=== PATIENT | female | born 1940 | race Caucasian/White ===

== ENCOUNTER 2018-03-07 11:15 | Outpatient (RCR) | payer MEDICARE, SELFPAY ==
[2018-02-21 08:44] VITALS: BP 120/76; PULSE 120; RESP 18; TEMP 35.9; BMI 45.7
--- NOTE | 2018-02-21 18:27 | PCM.WC.HP ---
(1) Ulcer of lower extremity with fat layer exposed Status: Acute Current Visit: Yes Qualifiers: Laterality: unspecified laterality Qualified Code(s): L97.902 - Non-pressure chronic ulcer of unspecified part of unspecified lower leg with fat layer exposed Code(s): L97.902 - Non-pressure chronic ulcer of unspecified part of unspecified lower leg with fat layer exposed Comment: Bilateral (2) Type 2 diabetes mellitus Status: Acute Current Visit: Yes Code(s): E11.9 - Type 2 diabetes mellitus without complications (3) Venous insufficiency Status: Acute Current Visit: Yes Code(s): I87.2 - Venous insufficiency (chronic) (peripheral) (4) Venous ulcer of left leg Status: Chronic Current Visit: No Code(s): I83.029 - Varicose veins of left lower extremity with ulcer of unspecified site History of Present Illness Date of Service: 02/21/18 Chief Complaint: Bilateral lower extremity ulcers. History of Wound: Ms. Nagy is a 77yo with PMH of Hypertension, Hyperlipidemia, type 2 Diabetes Mellitus and Chronic Venous insuficiency who presented here due to new bilateral lower extremity ulcers. She is not sure about the exact onset but states that she first noted them a couple of months. She denies any known precipitatting factors. She was last seen here in 2015/2016 and states that she has been stable since then. She does not use any mode of compression and admits to sitting a lot with the extremities hanging down. She otherwise feels well and denies chills, fever, nausea, vomiiting or any chnage in her bowel habit. 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 (Chronic) Allergies/Adverse Reactions: Allergies diltiazem HCl [From Cardizem] Adverse Reaction (Verified 01/20/16 11:37) Rash Home Medications: Ambulatory Orders Medication Instructions Recorded Furosemide [Lasix] 80 mg PO BID 01/20/16 Gabapentin [Gralise] 300 mg PO BID 01/20/16 Glimepiride [Amaryl] 2 mg PO BID 01/20/16 Metformin HCl [Glucophage] 500 mg PO BIDCM 01/20/16 Metoprolol Tartrate [Lopressor 50 mg PO DAILY 01/20/16 (Beta Olman)] Potassium 10 mg PO TID 01/20/16 Simvastatin [Zocor] 40 mg PO QHS 01/20/16 Warfarin [Coumadin ([facility])] 6 mg PO MOWEFR 01/20/16 Warfarin [Coumadin ([facility])] 3 mg PO SUTHSA 02/21/18 Smoking Status: Former smoker Review of Systems Constitutional: Denies: Anorexia, Chills, Fever, Malaise Eyes: Denies: Drainage, Vision Change HEENT: Denies: Difficulty Swallowing, Ear Pain Cardiovascular: Denies: Chest Pain, Chest Pressure, Chest Tightness Respiratory: Denies: Cough, Hemoptysis Gastrointestinal: Denies: Abdominal Pain Skin: Denies: Jaundice - Physical Exam Vital Signs Temp Pulse Resp BP 96.6 F L 120 H 18 120/76 02/21/18 08:44 02/21/18 08:44 02/21/18 08:44 02/21/18 08:44 General: Alert, Oriented x3, Cooperative, No apparent distress HEENT: Atraumatic, Normocephalic Oral: Dry Mucosa Neck: Supple Lungs: Normal air movement Cardiovascular: Regular rate Abdomen: Non Tender, Obese Extremities: No cyanosis, Edema Skin: Ulcer/ Wound Wound Measurements and Assessment WC - Nurse 1 - General Ulcer Measurement Start: 02/21/18 08:44 Freq: Status: Active Protocol: Activity Type Activity Date Activity User E-Sign Co-Sign Detail Recorded Client Recorded Date Recorded By Document 02/21/18 08:44 DV [id number] 02/21/18 09:26 DV 02/21/18 08:44 Wound Center Nurse 1 [Ulcer Assessment] #3 RLE- FARFAN -Combined with other wound No -Current Size (cm) - Length 10.0 -Current Size (cm) - Width 7.0 -Current Size (cm) - Depth 0.2 -Total Square Cm 70.00 -Photo Taken Yes -Epithelialization None Present -Tunneling No -Undermining/Tunneling No -Circular Undermining No -Classification - Thickness Full Thickness without Exposed Support Structure -Exudate Amt Medium (34-66%) -Exudate Type Serosanguineous -Wound Margin Indistinct, Non -Visible -Granulation Amt None Present (0 %) -Granulation Quality N/A -Slough/Fibrin Yes -Necrosis Amt Large (67-100%) -Necrotic Tissue Type Adherent Slough -Structure Exposed Fat Layer Exposed None/Limited to Skin Breakdown -Texture (Norma-wound Skin Appearance) Assessed Localized Edema Scarring -Moisture (Norma-wound Skin Appearance Assessed ) Weeping Dry/Scaly -Color (Norma-wound Skin Appearance) Assessed Hemosiderin Staining -Temperature (Norma-wound Skin No Abnormality Appearance) (Pt Warm) -Tenderness on Palpation (Norma-wound Yes Skin Appearance) -Ulcer Cleansing Wound Cleanser -Foul Odor after Cleansing Yes -Anesthetic Used 4% Lidocaine Solution #2 LLE ULCER- CIRCUMFRENTIAL -Combined with other wound No -Current Size (cm) - Length 31.5 -Current Size (cm) - Width 11.0 -Current Size (cm) - Depth 0.2 -Total Square Cm 346.50 -Photo Taken Yes -Epithelialization None Present -Tunneling No -Undermining/Tunneling No -Classification - Thickness Full Thickness without Exposed Support Structure -Exudate Amt Large (67-100%) -Exudate Type Yellow/Green -Wound Margin Thickened -Granulation Amt None Present (0 %) -Granulation Quality N/A -Slough/Fibrin Yes -Necrosis Amt Large (67-100%) -Necrotic Tissue Type Adherent Slough -Structure Exposed Fat Layer Exposed None/Limited to Skin Breakdown -Texture (Norma-wound Skin Appearance) Assessed Callus Localized Edema Scarring -Moisture (Norma-wound Skin Appearance Assessed ) Weeping Dry/Scaly -Color (Norma-wound Skin Appearance) Assessed Hemosiderin Staining -Temperature (Norma-wound Skin No Abnormality Appearance) (Pt Warm) -Tenderness on Palpation (Norma-wound Yes Skin Appearance) -Ulcer Cleansing Wound Cleanser -Foul Odor after Cleansing Yes -Anesthetic Used 4% Lidocaine Solution [Edema Assessment] -Lower Limb Edema Present Yes -Right Calf (cm) 52.5 -Right Ankle (cm) 30.0 -Left Calf (cm) 54.0 -Left Ankle (cm) 31.0 WC - Nurse 2 - General Ulcer CM Notes Start: 02/21/18 08:44 Freq: Status: Active Protocol: Activity Type Activity Date Activity User E-Sign Co-Sign Detail Recorded Client Recorded Date Recorded By Document 02/21/18 10:32 DV [id number] 02/21/18 10:48 DV 02/21/18 10:32 Wound Center Nurse 2 [Procedure/Treatment] #3 RLE- FARFAN -Time 10:34 -Correct Patient Yes -Correct Side, Site, Position Yes -Correct Procedure Yes -Procedure Performed Yes -Type of Procedure Debridement -Clinical Debridement Subcutaneous -Post Debridement Size (cm) - Length 10.0 -Post Debridement Size (cm) - Width 7.3 -Post Debridement Size (cm) - Depth 0.1 -Total Square Cm 73.00 -Wound/Ulcer Outcome Not Healed -Ulcer Cleansing Rinsed/ Irrigated with Saline -Foul Odor after Cleansing No -Bioengineered Tissue No -Bleeding Controlled with Pressure -Treatment Response Procedure Tolerated Well #2 LLE ULCER- CIRCUMFRENTIAL -Time 10:34 -Correct Patient Yes -Correct Side, Site, Position Yes -Correct Procedure Yes -Procedure Performed Yes -Type of Procedure Debridement -Clinical Debridement Subcutaneous -Post Debridement Size (cm) - Length 31.0 -Post Debridement Size (cm) - Width 11.5 -Post Debridement Size (cm) - Depth 0.2 -Total Square Cm 356.50 -Wound/Ulcer Outcome Not Healed -Ulcer Cleansing Rinsed/ Irrigated with Saline -Foul Odor after Cleansing No -Bioengineered Tissue No -Bleeding Controlled with Pressure -Treatment Response Procedure Tolerated Well [See Physician Procedure note for Specifics] Pain Scale: 0-10 Numeric [Pain] -Is Patient Pain Free? Yes Musculoskeletal: No Muscle Wasting Neurological: Cranial nerves II-XII grossly intact Psych/Mental Status: Normal Affect Debridement Note Post-Debridement Measurements/Treatment WC - Nurse 2 - General Ulcer CM Notes Start: 02/21/18 08:44 Freq: Status: Active Protocol: Activity Type Activity Date Activity User E-Sign Co-Sign Detail Recorded Client Recorded Date Recorded By Document 02/21/18 10:32 DV [id number] 02/21/18 10:48 DV 02/21/18 10:32 Wound Center Nurse 2 #3 RLE- FARFAN -Time 10:34 -Correct Patient Yes -Correct Side, Site, Position Yes -Correct Procedure Yes -Procedure Performed Yes -Type of Procedure Debridement -Clinical Debridement Subcutaneous -Post Debridement Size (cm) - Length 10.0 -Post Debridement Size (cm) - Width 7.3 -Post Debridement Size (cm) - Depth 0.1 -Total Square Cm 73.00 -Wound/Ulcer Outcome Not Healed -Ulcer Cleansing Rinsed/ Irrigated with Saline -Foul Odor after Cleansing No -Bioengineered Tissue No -Bleeding Controlled with Pressure -Treatment Response Procedure Tolerated Well #2 LLE ULCER- CIRCUMFRENTIAL -Time 10:34 -Correct Patient Yes -Correct Side, Site, Position Yes -Correct Procedure Yes -Procedure Performed Yes -Type of Procedure Debridement -Clinical Debridement Subcutaneous -Post Debridement Size (cm) - Length 31.0 -Post Debridement Size (cm) - Width 11.5 -Post Debridement Size (cm) - Depth 0.2 -Total Square Cm 356.50 -Wound/Ulcer Outcome Not Healed -Ulcer Cleansing Rinsed/ Irrigated with Saline -Foul Odor after Cleansing No -Bioengineered Tissue No -Bleeding Controlled with Pressure -Treatment Response Procedure Tolerated Well Pain Scale: 0-10 Numeric Is Patient Pain Free? Yes Wound debrided: Left lower extremity cluster Wound Grade/Stage: [place] II Type of Debridement: Excisional debridement Anesthesia Used: 4% Lidocaine Solution Depth: Down to and including healthy tissue, in the subcutaneous layer Percentage of wound debrided: 100 Instrument Used: 5mm curette Tissue Removed: Slough and devitalized tissue Severity: Fat Layer Exposed Amount of bleeding with debridement: Mild Bleeding Controlled with: Pressure Patient tolerated procedure well - Additional Wound Wound debrided: Right lower extremity Wound Grade/Stage: [place] 1 Type of Debridement: Excisional debridement Anesthesia Used: 4% Lidocaine Solution Depth: Down to and including healthy tissue, in the subcutaneous layer Percentage of wound debrided: 100 Instrument Used: 5mm curette Tissue Removed: Slough and devitalized tissue Severity: Fat Layer Exposed Amount of bleeding with debridement: Mild Bleeding Controlled with: Pressure Patient tolerated procedure: Patient tolerated procedure well Assessment/Plan Active Problems Type 2 diabetes mellitus (Acute) Venous insufficiency (Acute) Ulcer of lower extremity with fat layer exposed (Acute) Bilateral Assessment: Bilateral lower etxremity venous ulcers. Diabetes Mellitus type 2. Chronic Lymphedema. Plan: Ms. Nagy is well known to the wound center and was last seen here in 2016 for venous insufficiency ulcers. She was discharged with instructions for lymphedema management however, patient has not been compliant with her stockings or lymph edema pump. ? Greenish discharge and foul smelling discharge by intake nurse. Non noted during debridement. Debridement done as documented above, procedure was well tolerated. Cultures taken from both lower extremities. Vascular, venous studies and blood work also ordered. Apply silvercell with adaptic over top. Change daily. Single layer tubi child and family services specialist for edema management. Elevate lower extremity when sitted and when in bed. Protein supplements and increased dietary protein recommended. Follow up in 1 week. Advised to call with any questions or concerns.
--- NOTE | 2018-02-21 18:38 | HP.PCM_ITS ---
(1) Ulcer of lower extremity with fat layer exposed Status: Acute Current Visit: Yes Qualifiers: Laterality: unspecified laterality Qualified Code(s): L97.902 - Non- pressure chronic ulcer of unspecified part of unspecified lower leg with fat layer exposed Code(s): L97.902 - Non-pressure chronic ulcer of unspecified part of unspecified lower leg with fat layer exposed Comment: Bilateral (2) Type 2 diabetes mellitus Status: Acute Current Visit: Yes Code(s): E11.9 - Type 2 diabetes mellitus without complications (3) Venous insufficiency Status: Acute Current Visit: Yes Code(s): I87.2 - Venous insufficiency ( chronic) (peripheral) (4) Venous ulcer of left leg Status: Chronic Current Visit: No Code(s): I83.029 - Varicose veins of left lower extremity with ulcer of unspecified site History of Present Illness Date of Service: 02/21/18 Chief Complaint: Bilateral lower extremity ulcers. History of Wound: Ms. Nagy is a 77yo with PMH of Hypertension, Hyperlipidemia , type 2 Diabetes Mellitus and Chronic Venous insuficiency who presented here due to new bilateral lower extremity ulcers. She is not sure about the exact onset but states that she first noted them a couple of months. She denies any known precipitatting factors. She was last seen here in 2015/2016 and states that she has been stable since then. She does not use any mode of compression and admits to sitting a lot with the extremities hanging down. She otherwise feels well and denies chills, fever, nausea, vomiiting or any chnage in her bowel habit. 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 (Chronic) Allergies/Adverse Reactions: Allergies diltiazem HCl [From Cardizem] Adverse Reaction (Verified 01/20/16 11:37) Rash Home Medications: Ambulatory Orders Medication Instructions Recorded Furosemide [Lasix] 80 mg PO BID 01/20/16 Gabapentin [Gralise] 300 mg PO BID 01/20/16 Glimepiride [Amaryl] 2 mg PO BID 01/20/16 Metformin HCl [Glucophage] 500 mg PO BIDCM 01/20/16 Metoprolol Tartrate [Lopressor 50 mg PO DAILY 01/20/16 (Beta Olman)] Potassium 10 mg PO TID 01/20/16 Simvastatin [Zocor] 40 mg PO QHS 01/20/16 Warfarin [Coumadin ([facility])] 6 mg PO MOWEFR 01/20/16 Warfarin [Coumadin ([facility])] 3 mg PO SUTHSA 02/21/18 Smoking Status: Former smoker Review of Systems Constitutional: Denies: Anorexia, Chills, Fever, Malaise Eyes: Denies: Drainage, Vision Change HEENT: Denies: Difficulty Swallowing, Ear Pain Cardiovascular: Denies: Chest Pain, Chest Pressure, Chest Tightness Respiratory: Denies: Cough, Hemoptysis Gastrointestinal: Denies: Abdominal Pain Skin: Denies: Jaundice - Physical Exam Vital Signs Temp Pulse Resp BP 96.6 F L 120 H 18 120/76 02/21/18 08:44 02/21/18 08:44 02/21/18 08:44 02/21/18 08:44 General: Alert, Oriented x3, Cooperative, No apparent distress HEENT: Atraumatic, Normocephalic Oral: Dry Mucosa Neck: Supple Lungs: Normal air movement Cardiovascular: Regular rate Abdomen: Non Tender, Obese Extremities: No cyanosis, Edema Skin: Ulcer/ Wound Wound Measurements and Assessment WC - Nurse 1 - General Ulcer Measurement Start: 02/21/18 08:44 Freq: Status: Active Protocol: Activity Type Activity Date Activity User E-Sign Co-Sign Detail Recorded Client Recorded Date Recorded By Document 02/21/18 08:44 DV [id number] 02/21/18 09:26 DV 02/21/18 08:44 Wound Center Nurse 1 [Ulcer Assessment] #3 RLE- FARFAN -Combined with other wound No -Current Size (cm) - Length 10.0 -Current Size (cm) - Width 7.0 -Current Size (cm) - Depth 0.2 -Total Square Cm 70.00 -Photo Taken Yes -Epithelialization None Present -Tunneling No -Undermining/Tunneling No -Circular Undermining No -Classification - Thickness Full Thickness without Exposed Support Structure -Exudate Amt Medium (34-66%) -Exudate Type Serosanguineous -Wound Margin Indistinct, Non -Visible -Granulation Amt None Present (0 %) -Granulation Quality N/A -Slough/Fibrin Yes -Necrosis Amt Large (67-100%) -Necrotic Tissue Type Adherent Slough -Structure Exposed Fat Layer Exposed None/Limited to Skin Breakdown -Texture (Norma-wound Skin Appearance) Assessed Localized Edema Scarring -Moisture (Norma-wound Skin Appearance Assessed ) Weeping Dry/Scaly -Color (Norma-wound Skin Appearance) Assessed Hemosiderin Staining -Temperature (Norma-wound Skin No Abnormality Appearance) (Pt Warm) -Tenderness on Palpation (Norma-wound Yes Skin Appearance) -Ulcer Cleansing Wound Cleanser -Foul Odor after Cleansing Yes -Anesthetic Used 4% Lidocaine Solution #2 LLE ULCER- CIRCUMFRENTIAL -Combined with other wound No -Current Size (cm) - Length 31.5 -Current Size (cm) - Width 11.0 -Current Size (cm) - Depth 0.2 -Total Square Cm 346.50 -Photo Taken Yes -Epithelialization None Present -Tunneling No -Undermining/Tunneling No -Classification - Thickness Full Thickness without Exposed Support Structure -Exudate Amt Large (67-100%) -Exudate Type Yellow/Green -Wound Margin Thickened -Granulation Amt None Present (0 %) -Granulation Quality N/A -Slough/Fibrin Yes -Necrosis Amt Large (67-100%) -Necrotic Tissue Type Adherent Slough -Structure Exposed Fat Layer Exposed None/Limited to Skin Breakdown -Texture (Norma-wound Skin Appearance) Assessed Callus Localized Edema Scarring -Moisture (Norma-wound Skin Appearance Assessed ) Weeping Dry/Scaly -Color (Norma-wound Skin Appearance) Assessed Hemosiderin Staining -Temperature (Norma-wound Skin No Abnormality Appearance) (Pt Warm) -Tenderness on Palpation (Norma-wound Yes Skin Appearance) -Ulcer Cleansing Wound Cleanser -Foul Odor after Cleansing Yes -Anesthetic Used 4% Lidocaine Solution [Edema Assessment] -Lower Limb Edema Present Yes -Right Calf (cm) 52.5 -Right Ankle (cm) 30.0 -Left Calf (cm) 54.0 -Left Ankle (cm) 31.0 WC - Nurse 2 - General Ulcer CM Notes Start: 02/21/18 08:44 Freq: Status: Active Protocol: Activity Type Activity Date Activity User E-Sign Co-Sign Detail Recorded Client Recorded Date Recorded By Document 02/21/18 10:32 DV [id number] 02/21/18 10:48 DV 02/21/18 10:32 Wound Center Nurse 2 [Procedure/Treatment] #3 RLE- FARFAN -Time 10:34 -Correct Patient Yes -Correct Side, Site, Position Yes -Correct Procedure Yes -Procedure Performed Yes -Type of Procedure Debridement -Clinical Debridement Subcutaneous -Post Debridement Size (cm) - Length 10.0 -Post Debridement Size (cm) - Width 7.3 -Post Debridement Size (cm) - Depth 0.1 -Total Square Cm 73.00 -Wound/Ulcer Outcome Not Healed -Ulcer Cleansing Rinsed/ Irrigated with Saline -Foul Odor after Cleansing No -Bioengineered Tissue No -Bleeding Controlled with Pressure -Treatment Response Procedure Tolerated Well #2 LLE ULCER- CIRCUMFRENTIAL -Time 10:34 -Correct Patient Yes -Correct Side, Site, Position Yes -Correct Procedure Yes -Procedure Performed Yes -Type of Procedure Debridement -Clinical Debridement Subcutaneous -Post Debridement Size (cm) - Length 31.0 -Post Debridement Size (cm) - Width 11.5 -Post Debridement Size (cm) - Depth 0.2 -Total Square Cm 356.50 -Wound/Ulcer Outcome Not Healed -Ulcer Cleansing Rinsed/ Irrigated with Saline -Foul Odor after Cleansing No -Bioengineered Tissue No -Bleeding Controlled with Pressure -Treatment Response Procedure Tolerated Well [See Physician Procedure note for Specifics] Pain Scale: 0-10 Numeric [Pain] -Is Patient Pain Free? Yes Musculoskeletal: No Muscle Wasting Neurological: Cranial nerves II-XII grossly intact Psych/Mental Status: Normal Affect Debridement Note Post-Debridement Measurements/Treatment WC - Nurse 2 - General Ulcer CM Notes Start: 02/21/18 08:44 Freq: Status: Active Protocol: Activity Type Activity Date Activity User E-Sign Co-Sign Detail Recorded Client Recorded Date Recorded By Document 02/21/18 10:32 DV [id number] 02/21/18 10:48 DV 02/21/18 10:32 Wound Center Nurse 2 #3 RLE- FARFAN -Time 10:34 -Correct Patient Yes -Correct Side, Site, Position Yes -Correct Procedure Yes -Procedure Performed Yes -Type of Procedure Debridement -Clinical Debridement Subcutaneous -Post Debridement Size (cm) - Length 10.0 -Post Debridement Size (cm) - Width 7.3 -Post Debridement Size (cm) - Depth 0.1 -Total Square Cm 73.00 -Wound/Ulcer Outcome Not Healed -Ulcer Cleansing Rinsed/ Irrigated with Saline -Foul Odor after Cleansing No -Bioengineered Tissue No -Bleeding Controlled with Pressure -Treatment Response Procedure Tolerated Well #2 LLE ULCER- CIRCUMFRENTIAL -Time 10:34 -Correct Patient Yes -Correct Side, Site, Position Yes -Correct Procedure Yes -Procedure Performed Yes -Type of Procedure Debridement -Clinical Debridement Subcutaneous -Post Debridement Size (cm) - Length 31.0 -Post Debridement Size (cm) - Width 11.5 -Post Debridement Size (cm) - Depth 0.2 -Total Square Cm 356.50 -Wound/Ulcer Outcome Not Healed -Ulcer Cleansing Rinsed/ Irrigated with Saline -Foul Odor after Cleansing No -Bioengineered Tissue No -Bleeding Controlled with Pressure -Treatment Response Procedure Tolerated Well Pain Scale: 0-10 Numeric Is Patient Pain Free? Yes Wound debrided: Left lower extremity cluster Wound Grade/Stage: [place] II Type of Debridement: Excisional debridement Anesthesia Used: 4% Lidocaine Solution Depth: Down to and including healthy tissue, in the subcutaneous layer Percentage of wound debrided: 100 Instrument Used: 5mm curette Tissue Removed: Slough and devitalized tissue Severity: Fat Layer Exposed Amount of bleeding with debridement: Mild Bleeding Controlled with: Pressure Patient tolerated procedure well - Additional Wound Wound debrided: Right lower extremity Wound Grade/Stage: [place] 1 Type of Debridement: Excisional debridement Anesthesia Used: 4% Lidocaine Solution Depth: Down to and including healthy tissue, in the subcutaneous layer Percentage of wound debrided: 100 Instrument Used: 5mm curette Tissue Removed: Slough and devitalized tissue Severity: Fat Layer Exposed Amount of bleeding with debridement: Mild Bleeding Controlled with: Pressure Patient tolerated procedure: Patient tolerated procedure well Assessment/Plan Active Problems Type 2 diabetes mellitus (Acute) Venous insufficiency (Acute) Ulcer of lower extremity with fat layer exposed (Acute) Bilateral Assessment: Bilateral lower etxremity venous ulcers. Diabetes Mellitus type 2. Chronic Lymphedema. Plan: Ms. Nagy is well known to the wound center and was last seen here in 2016 for venous insufficiency ulcers. She was discharged with instructions for lymphedema management however, patient has not been compliant with her stockings or lymph edema pump. ? Greenish discharge and foul smelling discharge by intake nurse. Non noted during debridement. Debridement done as documented above, procedure was well tolerated. Cultures taken from both lower extremities. Vascular, venous studies and blood work also ordered. Apply silvercell with adaptic over top. Change daily. Single layer tubi printing bindery assistant for edema management. Elevate lower extremity when sitted and when in bed. Protein supplements and increased dietary protein recommended. Follow up in 1 week. Advised to call with any questions or concerns.
[2018-02-22 09:40] LABS: ALB/GLOB Ratio 0.8 RATIO (0.9-2.4); AST(SGOT) 12 U/L (15-37); Alanine Aminotransfer ALT/SGPT 11 U/L (13-56); Albumin, Serum 3.3 g/dL (3.2-5.0); Alkaline Phosphatase 59 U/L (45-117); Anion Gap 9 (5-15); BUN 23 mg/dL (7-18); BUN/Creat Ratio 24.8 RATIO (10-20); Calcium,Total 9.2 mg/dL (8.5-10.1); Chloride 106 mmol/L (98-107); Creatinine, Serum 0.93 mg/dL (0.55-1.02); EST Glomerular Filtration Rate 62 mL/min (>60); Est Glom Filt Rate - Afr Amer 75 mL/min (>60); Estimated Creatinine Clearance 40.07 ml/min; Globulin 4.2 g/dL (2.2-4.2); Glucose 130 mg/dL (74-106); Potassium 3.9 mmol/L (3.5-5.1); Prealbumin 19.2 mg/dL (20.0-40.0); Protein, Total 7.5 g/dL (6.4-8.2); Sodium Level 141 mmol/L (136-145)
[2018-02-22 09:58] LABS: Hemoglobin A1c 6.8 % (4.2-6.3)
[2018-02-22 14:11] LABS: Absolute Lymphocyte Count 1.73 X10^3/ul (0.83-4.51); Absolute Neutrophil Count 4.8 X10^3/uL (2.0-7.7); Basophil# 0.02 X10^3/uL; Basophil% 0.3 % (0-1); Eosinophil# 0.09 X10^3/uL; Eosinophils% 1.2 % (0-5); Hematocrit 38.8 % (37-47); Hemoglobin 12.7 g/dl (12.0-15.0); Lymphocyte # 1.73 X10^3/ul (4.0); Lymphocyte % 23.9 % (19-41); Mean Corp Hgb Conc 32.7 g/gl (32-36); Mean Corpuscular Hgb 28.9 pg (27.0-32.0); Mean Corpuscular Volume 88.4 fL (81-99); Mean Platelet Vol. 12.1 fl (6.2-12.0); Monocyte# 0.54 X10^3/uL; Monocyte% 7.5 % (0-10); Neutrophil # 4.84 X10^3/uL (2.7-7.7); Platelet Count 123 K/mm3 (150-450); RBC Distribution Width CV 14.6 % (11.6-14.6); RBC Distribution Width SD 46.9 fl (35.1-43.9); Red Blood Count 4.39 M/mm3 (4.2-5.4); White Blood Count 7.2 K/mm3 (4.4-11.0)
[2018-02-22 14:12] LABS: POSITIVE COUNT NO; POSITIVE DIFFERENTIAL NO; POSITIVE MORPHOLOGY NO
[2018-02-28 12:37] VITALS: BP 158/74; PULSE 108; RESP 20; TEMP 35.8; BMI 45.7
[2018-03-07 12:33] VITALS: BP 118/75; PULSE 109; RESP 20; TEMP 35.9; BMI 45.7
--- NOTE | 2018-03-07 13:11 | PCM.WC.PN ---
(1) Ulcer of lower extremity with fat layer exposed Status: Acute Current Visit: Yes Qualifiers: Laterality: unspecified laterality Qualified Code(s): L97.902 - Non-pressure chronic ulcer of unspecified part of unspecified lower leg with fat layer exposed Code(s): L97.902 - Non-pressure chronic ulcer of unspecified part of unspecified lower leg with fat layer exposed Comment: Bilateral (2) Type 2 diabetes mellitus Status: Acute Current Visit: Yes Code(s): E11.9 - Type 2 diabetes mellitus without complications (3) Venous insufficiency Status: Acute Current Visit: Yes Code(s): I87.2 - Venous insufficiency (chronic) (peripheral) (4) Venous ulcer of left leg Status: Chronic Current Visit: No Code(s): I83.029 - Varicose veins of left lower extremity with ulcer of unspecified site Type of Wound Date of Service: 03/07/18 Chief Complaint: Bilateral lower extremity ulcers. History of Wound: Ms. Nagy is a 77yo with PMH of Hypertension, Hyperlipidemia, type 2 Diabetes Mellitus and Chronic Venous insuficiency who presented here due to new bilateral lower extremity ulcers. She is not sure about the exact onset but states that she first noted them a couple of months. She denies any known precipitatting factors. She was last seen here in 2015/2016 and states that she has been stable since then. She does not use any mode of compression and admits to sitting a lot with the extremities hanging down. She otherwise feels well and denies chills, fever, nausea, vomiiting or any chnage in her bowel habit. Progress of Wound: Wound with significant progress since starting ABX. No new complaints at this. - Physical Exam Vital Signs Temp Pulse Resp BP 96.6 F L 109 H 20 H 118/75 03/07/18 12:33 03/07/18 12:33 03/07/18 12:33 03/07/18 12:33 General: Alert, Oriented x3, Cooperative, No apparent distress HEENT: Atraumatic, Normocephalic Oral: Moist Mucosa Neck: Supple Lungs: Normal air movement Cardiovascular: Regular rate Abdomen: Non Tender, Obese Extremities: No cyanosis, Edema Skin: Ulcer/ Wound Wound Measurements and Assessment WC - Nurse 1 - General Ulcer Measurement Start: 02/21/18 08:44 Freq: Status: Active Protocol: Activity Type Activity Date Activity User E-Sign Co-Sign Detail Recorded Client Recorded Date Recorded By Document 03/07/18 12:33 JESSICA [id number] 03/07/18 12:46 JESSICA 03/07/18 12:33 Wound Center Nurse 1 [Ulcer Assessment] #3 RLE- FARFAN -Combined with other wound No -Current Size (cm) - Length 0.9 -Current Size (cm) - Width 0.5 -Current Size (cm) - Depth 0.1 -Total Square Cm 0.45 -Date of Last Picture (Recall this 02/21/18 field) -Photo Taken No -Epithelialization Small 1-33% -Tunneling No -Undermining/Tunneling No -Circular Undermining No -Classification - Thickness Full Thickness without Exposed Support Structure -Exudate Amt Small (1-33%) -Exudate Type Serous -Wound Margin Flat & Intact -Granulation Amt Small (1-33%) -Granulation Quality Pale [place] -Slough/Fibrin Yes -Necrosis Amt None Present (0 %) -Necrotic Tissue Type Adherent Slough -Structure Exposed Fat Layer Exposed None/Limited to Skin Breakdown -Texture (Norma-wound Skin Appearance) No Abnormality -Moisture (Norma-wound Skin Appearance No Abnormality ) -Color (Norma-wound Skin Appearance) Hemosiderin Staining -Temperature (Norma-wound Skin No Abnormality Appearance) (Pt Warm) -Tenderness on Palpation (Norma-wound No Skin Appearance) -Ulcer Cleansing Rinsed/ Irrigated with Saline -Foul Odor after Cleansing No -Anesthetic Used 4% Lidocaine Solution #2 LLE ULCER- CLUSTER -Combined with other wound No -Current Size (cm) - Length 5.0 -Current Size (cm) - Width 7.5 -Current Size (cm) - Depth 0.1 -Total Square Cm 37.50 -Date of Last Picture (Recall this 02/16/18 field) -Photo Taken No -Epithelialization Small 1-33% -Tunneling No -Undermining/Tunneling No -Circular Undermining No -Classification - Thickness Full Thickness without Exposed Support Structure -Exudate Amt Small (1-33%) -Exudate Type Serous -Wound Margin Indistinct, Non -Visible -Granulation Amt Small (1-33%) -Granulation Quality Pale [place] -Slough/Fibrin Yes -Necrosis Amt None Present (0 %) -Necrotic Tissue Type Adherent Slough -Structure Exposed Fat Layer Exposed None/Limited to Skin Breakdown -Texture (Norma-wound Skin Appearance) No Abnormality -Moisture (Norma-wound Skin Appearance No Abnormality ) -Color (Norma-wound Skin Appearance) Hemosiderin Staining -Temperature (Norma-wound Skin No Abnormality Appearance) (Pt Warm) -Tenderness on Palpation (Norma-wound Yes Skin Appearance) -Ulcer Cleansing Rinsed/ Irrigated with Saline -Foul Odor after Cleansing No -Anesthetic Used 4% Lidocaine Solution [Edema Assessment] -Lower Limb Edema Present Yes -Right Calf (cm) 56.0 -Right Ankle (cm) 27.7 -Left Calf (cm) 56.0 -Left Ankle (cm) 30.0 WC - Nurse 2 - General Ulcer CM Notes Start: 02/21/18 08:44 Freq: Status: Active Protocol: Activity Type Activity Date Activity User E-Sign Co-Sign Detail Recorded Client Recorded Date Recorded By Document 03/07/18 12:59 DV [id number] 03/07/18 13:02 DV 03/07/18 12:59 Wound Center Nurse 2 [Procedure/Treatment] #3 RLE- FRAFAN -Time 13:00 -Correct Patient Yes -Correct Side, Site, Position Yes -Correct Procedure Yes -Procedure Performed Yes -Type of Procedure Debridement -Clinical Debridement Subcutaneous -Post Debridement Size (cm) - Length 0.8 -Post Debridement Size (cm) - Width 0.6 -Post Debridement Size (cm) - Depth 0.1 -Total Square Cm 0.48 -Wound/Ulcer Outcome Not Healed -Ulcer Cleansing Rinsed/ Irrigated with Saline -Foul Odor after Cleansing No -Bioengineered Tissue No -Bleeding Controlled with Pressure -Treatment Response Procedure Tolerated Well #2 LLE ULCER- CLUSTER -Time 13:00 -Correct Patient Yes -Correct Side, Site, Position Yes -Correct Procedure Yes -Procedure Performed Yes -Type of Procedure Debridement -Clinical Debridement Subcutaneous -Post Debridement Size (cm) - Length 4.5 -Post Debridement Size (cm) - Width 5.5 -Post Debridement Size (cm) - Depth 0.2 -Total Square Cm 24.75 -Wound/Ulcer Outcome Not Healed -Ulcer Cleansing Rinsed/ Irrigated with Saline -Foul Odor after Cleansing No -Bioengineered Tissue No -Bleeding Controlled with Pressure -Treatment Response Procedure Tolerated Well [See Physician Procedure note for Specifics] Pain Scale: 0-10 Numeric [Pain] -Is Patient Pain Free? Yes Neurological: Cranial nerves II-XII grossly intact Psych/Mental Status: Normal Affect Debridement Note Post-Debridement Measurements/Treatment WC - Nurse 2 - General Ulcer CM Notes Start: 02/21/18 08:44 Freq: Status: Active Protocol: Activity Type Activity Date Activity User E-Sign Co-Sign Detail Recorded Client Recorded Date Recorded By Document 02/21/18 10:32 DV [id number] 02/21/18 10:48 DV Document 03/07/18 12:59 DV [id number] 03/07/18 13:02 DV 02/21/18 03/07/18 10:32 12:59 Wound Center Nurse 2 #3 RLE- FARFAN -Time 10:34 13:00 -Correct Patient Yes Yes -Correct Side, Site, Position Yes Yes -Correct Procedure Yes Yes -Procedure Performed Yes Yes -Type of Procedure Debridement Debridement -Clinical Debridement Subcutaneous Subcutaneous -Post Debridement Size (cm) - Length 10.0 0.8 -Post Debridement Size (cm) - Width 7.3 0.6 -Post Debridement Size (cm) - Depth 0.1 0.1 -Total Square Cm 73.00 0.48 -Wound/Ulcer Outcome Not Healed Not Healed -Ulcer Cleansing Rinsed/ Rinsed/ Irrigated with Irrigated with Saline Saline -Foul Odor after Cleansing No No -Bioengineered Tissue No No -Bleeding Controlled with Pressure Pressure -Treatment Response Procedure Procedure Tolerated Well Tolerated Well #2 LLE ULCER- CLUSTER -Time 10:34 13:00 -Correct Patient Yes Yes -Correct Side, Site, Position Yes Yes -Correct Procedure Yes Yes -Procedure Performed Yes Yes -Type of Procedure Debridement Debridement -Clinical Debridement Subcutaneous Subcutaneous -Post Debridement Size (cm) - Length 31.0 4.5 -Post Debridement Size (cm) - Width 11.5 5.5 -Post Debridement Size (cm) - Depth 0.2 0.2 -Total Square Cm 356.50 24.75 -Wound/Ulcer Outcome Not Healed Not Healed -Ulcer Cleansing Rinsed/ Rinsed/ Irrigated with Irrigated with Saline Saline -Foul Odor after Cleansing No No -Bioengineered Tissue No No -Bleeding Controlled with Pressure Pressure -Treatment Response Procedure Procedure Tolerated Well Tolerated Well Pain Scale: 0-10 Numeric Is Patient Pain Free? Yes Yes Wound debrided: Left lower extremity ( Cluster ) Wound Grade/Stage: [place] II Type of Debridement: Excisional debridement Anesthesia Used: 4% Lidocaine Solution Depth: Down to and including healthy tissue, in the subcutaneous layer Percentage of wound debrided: 100 Instrument Used: 5mm curette Tissue Removed: Slough, Biofilm and devitalizzed tissue Severity: Fat Layer Exposed Amount of bleeding with debridement: Mild Bleeding Controlled with: Pressure Patient tolerated procedure well - Additional Wound Wound debrided: Right lower extremity Wound Grade/Stage: [place] I Type of Debridement: Excisional debridement Anesthesia Used: 4% Lidocaine Solution Depth: Down to and including healthy tissue, in the subcutaneous layer Percentage of wound debrided: 100 Instrument Used: 3mm curette Tissue Removed: Biofilm and devitalized tissue Severity: Limited To Skin Breakdown Amount of bleeding with debridement: Mild Bleeding Controlled with: Pressure Patient tolerated procedure: Patient tolerated procedure well Assessment/Plan Active Problems Type 2 diabetes mellitus (Acute) Venous insufficiency (Acute) Ulcer of lower extremity with fat layer exposed (Acute) Bilateral Assessment: Bilateral lower etxremity venous ulcers. Diabetes Mellitus type 2. Chronic Lymphedema. Plan: Wound with significant improvement over the past week. Still has a good amount of slough over the left lower extremity wound. Debridement done as documenetd above. She appears to have done well on silvercell so will continue silvercell with adaptic over top. Change daily. Single layer tubi chiropractor assistant for edema management. Elevate lower extremity when sitted and when in bed. Protein supplements and increased dietary protein recommended. Scheduled for vascular and venous studis next week. Follow up in 1 week. Advised to call with any questions or concerns.
--- NOTE | 2018-03-07 13:21 | PN.PCM_ITS ---
(1) Ulcer of lower extremity with fat layer exposed Status: Acute Current Visit: Yes Qualifiers: Laterality: unspecified laterality Qualified Code(s): L97.902 - Non- pressure chronic ulcer of unspecified part of unspecified lower leg with fat layer exposed Code(s): L97.902 - Non-pressure chronic ulcer of unspecified part of unspecified lower leg with fat layer exposed Comment: Bilateral (2) Type 2 diabetes mellitus Status: Acute Current Visit: Yes Code(s): E11.9 - Type 2 diabetes mellitus without complications (3) Venous insufficiency Status: Acute Current Visit: Yes Code(s): I87.2 - Venous insufficiency ( chronic) (peripheral) (4) Venous ulcer of left leg Status: Chronic Current Visit: No Code(s): I83.029 - Varicose veins of left lower extremity with ulcer of unspecified site Type of Wound Date of Service: 03/07/18 Chief Complaint: Bilateral lower extremity ulcers. History of Wound: Ms. Nagy is a 77yo with PMH of Hypertension, Hyperlipidemia , type 2 Diabetes Mellitus and Chronic Venous insuficiency who presented here due to new bilateral lower extremity ulcers. She is not sure about the exact onset but states that she first noted them a couple of months. She denies any known precipitatting factors. She was last seen here in 2015/2016 and states that she has been stable since then. She does not use any mode of compression and admits to sitting a lot with the extremities hanging down. She otherwise feels well and denies chills, fever, nausea, vomiiting or any chnage in her bowel habit. Progress of Wound: Wound with significant progress since starting ABX. No new complaints at this. - Physical Exam Vital Signs Temp Pulse Resp BP 96.6 F L 109 H 20 H 118/75 03/07/18 12:33 03/07/18 12:33 03/07/18 12:33 03/07/18 12:33 General: Alert, Oriented x3, Cooperative, No apparent distress HEENT: Atraumatic, Normocephalic Oral: Moist Mucosa Neck: Supple Lungs: Normal air movement Cardiovascular: Regular rate Abdomen: Non Tender, Obese Extremities: No cyanosis, Edema Skin: Ulcer/ Wound Wound Measurements and Assessment WC - Nurse 1 - General Ulcer Measurement Start: 02/21/18 08:44 Freq: Status: Active Protocol: Activity Type Activity Date Activity User E-Sign Co-Sign Detail Recorded Client Recorded Date Recorded By Document 03/07/18 12:33 JESSICA [id number] 03/07/18 12:46 JESSICA 03/07/18 12:33 Wound Center Nurse 1 [Ulcer Assessment] #3 RLE- FARFAN -Combined with other wound No -Current Size (cm) - Length 0.9 -Current Size (cm) - Width 0.5 -Current Size (cm) - Depth 0.1 -Total Square Cm 0.45 -Date of Last Picture (Recall this 02/21/18 field) -Photo Taken No -Epithelialization Small 1-33% -Tunneling No -Undermining/Tunneling No -Circular Undermining No -Classification - Thickness Full Thickness without Exposed Support Structure -Exudate Amt Small (1-33%) -Exudate Type Serous -Wound Margin Flat & Intact -Granulation Amt Small (1-33%) -Granulation Quality Pale [place] -Slough/Fibrin Yes -Necrosis Amt None Present (0 %) -Necrotic Tissue Type Adherent Slough -Structure Exposed Fat Layer Exposed None/Limited to Skin Breakdown -Texture (Norma-wound Skin Appearance) No Abnormality -Moisture (Norma-wound Skin Appearance No Abnormality ) -Color (Norma-wound Skin Appearance) Hemosiderin Staining -Temperature (Norma-wound Skin No Abnormality Appearance) (Pt Warm) -Tenderness on Palpation (Norma-wound No Skin Appearance) -Ulcer Cleansing Rinsed/ Irrigated with Saline -Foul Odor after Cleansing No -Anesthetic Used 4% Lidocaine Solution #2 LLE ULCER- CLUSTER -Combined with other wound No -Current Size (cm) - Length 5.0 -Current Size (cm) - Width 7.5 -Current Size (cm) - Depth 0.1 -Total Square Cm 37.50 -Date of Last Picture (Recall this 02/16/18 field) -Photo Taken No -Epithelialization Small 1-33% -Tunneling No -Undermining/Tunneling No -Circular Undermining No -Classification - Thickness Full Thickness without Exposed Support Structure -Exudate Amt Small (1-33%) -Exudate Type Serous -Wound Margin Indistinct, Non -Visible -Granulation Amt Small (1-33%) -Granulation Quality Pale [place] -Slough/Fibrin Yes -Necrosis Amt None Present (0 %) -Necrotic Tissue Type Adherent Slough -Structure Exposed Fat Layer Exposed None/Limited to Skin Breakdown -Texture (Norma-wound Skin Appearance) No Abnormality -Moisture (Norma-wound Skin Appearance No Abnormality ) -Color (Norma-wound Skin Appearance) Hemosiderin Staining -Temperature (Norma-wound Skin No Abnormality Appearance) (Pt Warm) -Tenderness on Palpation (Norma-wound Yes Skin Appearance) -Ulcer Cleansing Rinsed/ Irrigated with Saline -Foul Odor after Cleansing No -Anesthetic Used 4% Lidocaine Solution [Edema Assessment] -Lower Limb Edema Present Yes -Right Calf (cm) 56.0 -Right Ankle (cm) 27.7 -Left Calf (cm) 56.0 -Left Ankle (cm) 30.0 WC - Nurse 2 - General Ulcer CM Notes Start: 02/21/18 08:44 Freq: Status: Active Protocol: Activity Type Activity Date Activity User E-Sign Co-Sign Detail Recorded Client Recorded Date Recorded By Document 03/07/18 12:59 DV [id number] 03/07/18 13:02 DV 03/07/18 12:59 Wound Center Nurse 2 [Procedure/Treatment] #3 RLE- FARFAN -Time 13:00 -Correct Patient Yes -Correct Side, Site, Position Yes -Correct Procedure Yes -Procedure Performed Yes -Type of Procedure Debridement -Clinical Debridement Subcutaneous -Post Debridement Size (cm) - Length 0.8 -Post Debridement Size (cm) - Width 0.6 -Post Debridement Size (cm) - Depth 0.1 -Total Square Cm 0.48 -Wound/Ulcer Outcome Not Healed -Ulcer Cleansing Rinsed/ Irrigated with Saline -Foul Odor after Cleansing No -Bioengineered Tissue No -Bleeding Controlled with Pressure -Treatment Response Procedure Tolerated Well #2 LLE ULCER- CLUSTER -Time 13:00 -Correct Patient Yes -Correct Side, Site, Position Yes -Correct Procedure Yes -Procedure Performed Yes -Type of Procedure Debridement -Clinical Debridement Subcutaneous -Post Debridement Size (cm) - Length 4.5 -Post Debridement Size (cm) - Width 5.5 -Post Debridement Size (cm) - Depth 0.2 -Total Square Cm 24.75 -Wound/Ulcer Outcome Not Healed -Ulcer Cleansing Rinsed/ Irrigated with Saline -Foul Odor after Cleansing No -Bioengineered Tissue No -Bleeding Controlled with Pressure -Treatment Response Procedure Tolerated Well [See Physician Procedure note for Specifics] Pain Scale: 0-10 Numeric [Pain] -Is Patient Pain Free? Yes Neurological: Cranial nerves II-XII grossly intact Psych/Mental Status: Normal Affect Debridement Note Post-Debridement Measurements/Treatment WC - Nurse 2 - General Ulcer CM Notes Start: 02/21/18 08:44 Freq: Status: Active Protocol: Activity Type Activity Date Activity User E-Sign Co-Sign Detail Recorded Client Recorded Date Recorded By Document 02/21/18 10:32 DV [id number] 02/21/18 10:48 DV Document 03/07/18 12:59 DV [id number] 03/07/18 13:02 DV 02/21/18 03/07/18 10:32 12:59 Wound Center Nurse 2 #3 RLE- FARFAN -Time 10:34 13:00 -Correct Patient Yes Yes -Correct Side, Site, Position Yes Yes -Correct Procedure Yes Yes -Procedure Performed Yes Yes -Type of Procedure Debridement Debridement -Clinical Debridement Subcutaneous Subcutaneous -Post Debridement Size (cm) - Length 10.0 0.8 -Post Debridement Size (cm) - Width 7.3 0.6 -Post Debridement Size (cm) - Depth 0.1 0.1 -Total Square Cm 73.00 0.48 -Wound/Ulcer Outcome Not Healed Not Healed -Ulcer Cleansing Rinsed/ Rinsed/ Irrigated with Irrigated with Saline Saline -Foul Odor after Cleansing No No -Bioengineered Tissue No No -Bleeding Controlled with Pressure Pressure -Treatment Response Procedure Procedure Tolerated Well Tolerated Well #2 LLE ULCER- CLUSTER -Time 10:34 13:00 -Correct Patient Yes Yes -Correct Side, Site, Position Yes Yes -Correct Procedure Yes Yes -Procedure Performed Yes Yes -Type of Procedure Debridement Debridement -Clinical Debridement Subcutaneous Subcutaneous -Post Debridement Size (cm) - Length 31.0 4.5 -Post Debridement Size (cm) - Width 11.5 5.5 -Post Debridement Size (cm) - Depth 0.2 0.2 -Total Square Cm 356.50 24.75 -Wound/Ulcer Outcome Not Healed Not Healed -Ulcer Cleansing Rinsed/ Rinsed/ Irrigated with Irrigated with Saline Saline -Foul Odor after Cleansing No No -Bioengineered Tissue No No -Bleeding Controlled with Pressure Pressure -Treatment Response Procedure Procedure Tolerated Well Tolerated Well Pain Scale: 0-10 Numeric Is Patient Pain Free? Yes Yes Wound debrided: Left lower extremity ( Cluster ) Wound Grade/Stage: [place] II Type of Debridement: Excisional debridement Anesthesia Used: 4% Lidocaine Solution Depth: Down to and including healthy tissue, in the subcutaneous layer Percentage of wound debrided: 100 Instrument Used: 5mm curette Tissue Removed: Slough, Biofilm and devitalizzed tissue Severity: Fat Layer Exposed Amount of bleeding with debridement: Mild Bleeding Controlled with: Pressure Patient tolerated procedure well - Additional Wound Wound debrided: Right lower extremity Wound Grade/Stage: [place] I Type of Debridement: Excisional debridement Anesthesia Used: 4% Lidocaine Solution Depth: Down to and including healthy tissue, in the subcutaneous layer Percentage of wound debrided: 100 Instrument Used: 3mm curette Tissue Removed: Biofilm and devitalized tissue Severity: Limited To Skin Breakdown Amount of bleeding with debridement: Mild Bleeding Controlled with: Pressure Patient tolerated procedure: Patient tolerated procedure well Assessment/Plan Active Problems Type 2 diabetes mellitus (Acute) Venous insufficiency (Acute) Ulcer of lower extremity with fat layer exposed (Acute) Bilateral Assessment: Bilateral lower etxremity venous ulcers. Diabetes Mellitus type 2. Chronic Lymphedema. Plan: Wound with significant improvement over the past week. Still has a good amount of slough over the left lower extremity wound. Debridement done as documenetd above. She appears to have done well on silvercell so will continue silvercell with adaptic over top. Change daily. Single layer tubi manager chemistry for edema management. Elevate lower extremity when sitted and when in bed. Protein supplements and increased dietary protein recommended. Scheduled for vascular and venous studis next week. Follow up in 1 week. Advised to call with any questions or concerns.
== END 2018-03-08 23:59 ==
LOC: WC 11:15
PROVIDERS: Family Provider Family Medicine; PCP Family Medicine; Visit Provider Internal Medicine
DX: E11.622 Type 2 diabetes mellitus with other skin ulcer (principal); E11.51 Type 2 diabetes mellitus with diabetic peripheral angiopathy without gangrene; I83.018 Varicose veins of right lower extremity with ulcer other part of lower leg; I83.028 Varicose veins of left lower extremity with ulcer other part of lower leg; L97.822 Non-pressure chronic ulcer of other part of left lower leg with fat layer exposed; L97.811 Non-pressure chronic ulcer of other part of right lower leg limited to breakdown of skin; I89.0 Lymphedema, not elsewhere classified; E78.5 Hyperlipidemia, unspecified; I10 Essential (primary) hypertension; R60.0 Localized edema; Z87.891 Personal history of nicotine dependence; Z91.19 Patient's noncompliance with other medical treatment and regimen
CPT/HCPCS: 11042; 11045; 36415; 80053; 83036; 84134; 85025; 87070; 87075; 87077; 87186; 87205; 99212; 99214; G0463

== ENCOUNTER 2018-03-28 10:30 | Outpatient (RCR) | payer MEDICARE, SELFPAY ==
[2018-03-09 01:11] VITALS: BP 118/75; PULSE 109; RESP 20; TEMP 35.9
--- NOTE | 2018-03-13 08:00 | VDLE_ITS ---
Reason For Study: ulcers, edema RIGHT LEFT CFV is compressible, spontaneous, phasic, CFV is compressible, spontaneous, phasic, competent and demonstrates normal competent, and demonstrates normal augmentation. augmentation. FV is compressible, spontaneous, phasic, FV is compressible, spontaneous, phasic, competent and demonstrates normal competent and demonstrates normal augmentation. augmentation. POP V is compressible, spontaneous, phasic, POP V is compressible, spontaneous, phasic, competent and demonstrates normal competent and demonstrates normal augmentation. augmentation. T/P Trunk is compressible. T/P Trunk is compressible. PTV is compressible. PTV is compressible. S-F Junction is incompetent for greater S-F Junction is competent. than .5 seconds. GSV is incompetent throughout for greater GSV is incompetent throughout for greater than .5 seconds. GSV measures .522 x .506 than .5 seconds. GSV measures .594 x .572 cm. cm. SSV is competent. SSV is competent. ASV off of the Junction is incompetent for ASV in the thigh is incompetent for greater greater than .5 seconds. ASV measures 1.22 x than .5 seconds. ASV measures .798 x .784 1.07 cm. cm. Second ASV in the prox thigh is incompetent Unable to image Peroneal V. for greater than .5 seconds. ASV Procedure measures .546 x .546 cm. Exam performed in department. Unable to image Peroneal V. The exam was diagnostic. Limited study due to body habitus. Interpretation Summary Deep veins of the lower extremities are bilaterally patent and compressible segmentally. There is no evidence of deep vein thrombosis on either side. Valvular competence appears intact within the proximal deep venous systems bilaterally. The greater saphenous veins appear bilaterally patent and compressible segmentally. The right sapheno-femoral junction is incompetent . The left sapheno- femoral junction is competent . Segmental valvular incompetence is noted within the greater saphenous veins bilaterally. Small saphenous veins are patent and competent bilaterally. The right accessory saphenous vein in the thigh is incompetent. The left accessory saphenous vein off the sapheno-femoral junction is incompetent. The left accessory saphenous vein in the proximal thigh is incompetent. The peroneal veins were not visualized on either side. Ordering Physician: Thiago Wakefield Performed By: Rylan Pickett RVT
[2018-03-21 11:38] VITALS: BP 134/69; PULSE 113; RESP 16; TEMP 36
--- NOTE | 2018-03-21 13:08 | PCM.WC.PN ---
(1) Ulcer of lower extremity with fat layer exposed Status: Acute Current Visit: Yes Qualifiers: Code(s): L97.902 - Non-pressure chronic ulcer of unspecified part of unspecified lower leg with fat layer exposed Comment: Bilateral (2) Type 2 diabetes mellitus Status: Acute Current Visit: Yes Code(s): E11.9 - Type 2 diabetes mellitus without complications (3) Edema leg Status: Chronic Current Visit: No Code(s): R60.0 - Localized edema (4) Venous ulcer of left leg Status: Chronic Current Visit: No Code(s): I83.029 - Varicose veins of left lower extremity with ulcer of unspecified site Type of Wound Date of Service: 03/21/18 Chief Complaint: Bilateral lower extremity ulcers. History of Wound: Ms. Nagy is a 77yo with PMH of Hypertension, Hyperlipidemia, type 2 Diabetes Mellitus and Chronic Venous insuficiency who presented here due to new bilateral lower extremity ulcers. She is not sure about the exact onset but states that she first noted them a couple of months. She denies any known precipitatting factors. She was last seen here in 2015/2016 and states that she has been stable since then. She does not use any mode of compression and admits to sitting a lot with the extremities hanging down. She otherwise feels well and denies chills, fever, nausea, vomiiting or any chnage in her bowel habit. Progress of Wound: Wound is stable. No new complaints at this time. - Physical Exam Vital Signs Temp Pulse Resp BP 96.8 F L 113 H 16 134/69 H 03/21/18 11:38 03/21/18 11:38 03/21/18 11:38 03/21/18 11:38 General: Alert, Oriented x3, Cooperative, No apparent distress HEENT: Atraumatic Neck: Supple Lungs: Normal air movement Abdomen: Non Tender, Obese Skin: Ulcer/ Wound Wound Measurements and Assessment WC - Nurse 1 - General Ulcer Measurement Start: 03/21/18 11:37 Freq: Status: Active Protocol: Activity Type Activity Date Activity User E-Sign Co-Sign Detail Recorded Client Recorded Date Recorded By Document 03/21/18 11:38 [facility] [id number] 03/21/18 11:50 [facility] 03/21/18 11:38 Wound Center Nurse 1 [Ulcer Assessment] #3 RLE- FARFAN -Combined with other wound No -Current Size (cm) - Length 0 -Current Size (cm) - Width 0 -Current Size (cm) - Depth 0 -Total Square Cm 0 -Date of Last Picture (Recall this 03/21/18 field) -Photo Taken Yes -Epithelialization Large 67-100% #2 LLE ULCER- SUPERIOR -Combined with other wound No -Current Size (cm) - Length 3.6 -Current Size (cm) - Width 7.7 -Current Size (cm) - Depth 0.1 -Total Square Cm 27.72 -Date of Last Picture (Recall this 03/21/18 field) -Photo Taken Yes -Epithelialization Small 1-33% -Tunneling No -Undermining/Tunneling No -Circular Undermining No -Exudate Amt Small (1-33%) -Exudate Type Serosanguineous -Wound Margin Distinct, Outline Attached -Granulation Amt Large (67-100%) -Granulation Quality Red -Slough/Fibrin Yes -Necrosis Amt Small (1-33%) -Structure Exposed None/Limited to Skin Breakdown -Texture (Norma-wound Skin Appearance) Scarring -Moisture (Norma-wound Skin Appearance Dry/Scaly ) -Color (Norma-wound Skin Appearance) Hemosiderin Staining -Temperature (Norma-wound Skin No Abnormality Appearance) (Pt Warm) -Tenderness on Palpation (Norma-wound No Skin Appearance) -Ulcer Cleansing Wound Cleanser -Foul Odor after Cleansing No -Anesthetic Used 4% Lidocaine Solution [Edema Assessment] -Lower Limb Edema Present Yes -Right Calf (cm) 581 -Right Ankle (cm) 27.5 -Left Calf (cm) 53.5 -Left Ankle (cm) 28 WC - Nurse 2 - General Ulcer CM Notes Start: 03/21/18 11:37 Freq: Status: Active Protocol: Activity Type Activity Date Activity User E-Sign Co-Sign Detail Recorded Client Recorded Date Recorded By Document 03/21/18 12:43 DV [id number] 03/21/18 12:48 DV 03/21/18 12:43 Wound Center Nurse 2 [Procedure/Treatment] #4 LLE ULCER- INFERIOR -Time 12:47 -Correct Patient Yes -Correct Side, Site, Position Yes -Correct Procedure Yes -Procedure Performed Yes -Type of Procedure Debridement -Clinical Debridement Subcutaneous -Post Debridement Size (cm) - Length 0.6 -Post Debridement Size (cm) - Width 0.1 -Post Debridement Size (cm) - Depth 0.2 -Total Square Cm 0.06 -Wound/Ulcer Outcome Not Healed -Ulcer Cleansing Rinsed/ Irrigated with Saline -Foul Odor after Cleansing No -Bioengineered Tissue No -Bleeding Controlled with Pressure -Treatment Response Procedure Tolerated Well #3 RLE- FARFAN -Time 12:44 -Correct Patient Yes -Correct Side, Site, Position Yes -Correct Procedure Yes -Procedure Performed Yes -Type of Procedure Debridement -Clinical Debridement Subcutaneous -Post Debridement Size (cm) - Length 0 -Post Debridement Size (cm) - Width 0 -Post Debridement Size (cm) - Depth 0 -Total Square Cm 0 -Wound/Ulcer Outcome Not Healed -Ulcer Cleansing Rinsed/ Irrigated with Saline -Foul Odor after Cleansing No -Bioengineered Tissue No -Bleeding Controlled with Pressure -Treatment Response Procedure Tolerated Well #2 LLE ULCER- SUPERIOR -Time 12:44 -Correct Patient Yes -Correct Side, Site, Position Yes -Correct Procedure Yes -Procedure Performed Yes -Type of Procedure Debridement -Clinical Debridement Subcutaneous -Post Debridement Size (cm) - Length 1.2 -Post Debridement Size (cm) - Width 4.8 -Post Debridement Size (cm) - Depth 0.2 -Total Square Cm 5.76 -Wound/Ulcer Outcome Not Healed -Ulcer Cleansing Rinsed/ Irrigated with Saline -Foul Odor after Cleansing No -Bioengineered Tissue No -Bleeding Controlled with Pressure -Treatment Response Procedure Tolerated Well [See Physician Procedure note for Specifics] Pain Scale: 0-10 Numeric [Pain] -Is Patient Pain Free? Yes Musculoskeletal: No Muscle Wasting Neurological: Cranial nerves II-XII grossly intact Debridement Note Post-Debridement Measurements/Treatment WC - Nurse 2 - General Ulcer CM Notes Start: 03/21/18 11:37 Freq: Status: Active Protocol: Activity Type Activity Date Activity User E-Sign Co-Sign Detail Recorded Client Recorded Date Recorded By Document 03/21/18 12:43 DV [id number] 03/21/18 12:48 DV 03/21/18 12:43 Wound Center Nurse 2 #4 LLE ULCER- INFERIOR -Time 12:47 -Correct Patient Yes -Correct Side, Site, Position Yes -Correct Procedure Yes -Procedure Performed Yes -Type of Procedure Debridement -Clinical Debridement Subcutaneous -Post Debridement Size (cm) - Length 0.6 -Post Debridement Size (cm) - Width 0.1 -Post Debridement Size (cm) - Depth 0.2 -Total Square Cm 0.06 -Wound/Ulcer Outcome Not Healed -Ulcer Cleansing Rinsed/ Irrigated with Saline -Foul Odor after Cleansing No -Bioengineered Tissue No -Bleeding Controlled with Pressure -Treatment Response Procedure Tolerated Well #3 RLE- FARFAN -Time 12:44 -Correct Patient Yes -Correct Side, Site, Position Yes -Correct Procedure Yes -Procedure Performed Yes -Type of Procedure Debridement -Clinical Debridement Subcutaneous -Post Debridement Size (cm) - Length 0 -Post Debridement Size (cm) - Width 0 -Post Debridement Size (cm) - Depth 0 -Total Square Cm 0 -Wound/Ulcer Outcome Not Healed -Ulcer Cleansing Rinsed/ Irrigated with Saline -Foul Odor after Cleansing No -Bioengineered Tissue No -Bleeding Controlled with Pressure -Treatment Response Procedure Tolerated Well #2 LLE ULCER- SUPERIOR -Time 12:44 -Correct Patient Yes -Correct Side, Site, Position Yes -Correct Procedure Yes -Procedure Performed Yes -Type of Procedure Debridement -Clinical Debridement Subcutaneous -Post Debridement Size (cm) - Length 1.2 -Post Debridement Size (cm) - Width 4.8 -Post Debridement Size (cm) - Depth 0.2 -Total Square Cm 5.76 -Wound/Ulcer Outcome Not Healed -Ulcer Cleansing Rinsed/ Irrigated with Saline -Foul Odor after Cleansing No -Bioengineered Tissue No -Bleeding Controlled with Pressure -Treatment Response Procedure Tolerated Well Pain Scale: 0-10 Numeric Is Patient Pain Free? Yes Wound debrided: Left lower extremity Lateral ( Superior ) Wound Grade/Stage: Col[place] II Type of Debridement: Excisional debridement Anesthesia Used: 4% Lidocaine Solution Depth: Down to and including healthy tissue, in the subcutaneous layer Percentage of wound debrided: 100 Instrument Used: 5mm curette Tissue Removed: Slough and devitalized tissue Severity: Fat Layer Exposed Amount of bleeding with debridement: Mild Bleeding Controlled with: Pressure Patient tolerated procedure well - Additional Wound Wound debrided: Left lateral lower extremity ( Inferior ) Wound Grade/Stage: [place] I Type of Debridement: Excisional debridement Anesthesia Used: 4% Lidocaine Solution Depth: Down to and including healthy tissue, in the subcutaneous layer Percentage of wound debrided: 100 Instrument Used: 5mm curette Tissue Removed: Slough and devitalized tissue Severity: Fat Layer Exposed Amount of bleeding with debridement: Mild Bleeding Controlled with: Pressure Patient tolerated procedure: Patient tolerated procedure well Assessment/Plan Active Problems Type 2 diabetes mellitus (Acute) Ulcer of lower extremity with fat layer exposed (Acute) Bilateral Assessment: Bilateral lower etxremity venous ulcers. Diabetes Mellitus type 2. Chronic Lymphedema. Plan: Wound with some improvement in the past week. No concerns for infection. Debridement done as documented above. Procedure was well-tolerated. Apply prosper to ulcer surface daily. Adaptoc over top. Continue Single layer tubi emr trainer for edema management. Elevate lower extremity when sitted and when in bed. Protein supplements and increased dietary protein recommended. Follow up in 1 week. Advised to call with any questions or concerns. This note was generated with [employer] dictation software. It may contain incorrect words, spelling, and punctuation that were not noted in checking the note before signing.
--- NOTE | 2018-03-21 13:17 | PN.PCM_ITS ---
(1) Ulcer of lower extremity with fat layer exposed Status: Acute Current Visit: Yes Qualifiers: Code(s): L97.902 - Non-pressure chronic ulcer of unspecified part of unspecified lower leg with fat layer exposed Comment: Bilateral (2) Type 2 diabetes mellitus Status: Acute Current Visit: Yes Code(s): E11.9 - Type 2 diabetes mellitus without complications (3) Edema leg Status: Chronic Current Visit: No Code(s): R60.0 - Localized edema (4) Venous ulcer of left leg Status: Chronic Current Visit: No Code(s): I83.029 - Varicose veins of left lower extremity with ulcer of unspecified site Type of Wound Date of Service: 03/21/18 Chief Complaint: Bilateral lower extremity ulcers. History of Wound: Ms. Nagy is a 77yo with PMH of Hypertension, Hyperlipidemia , type 2 Diabetes Mellitus and Chronic Venous insuficiency who presented here due to new bilateral lower extremity ulcers. She is not sure about the exact onset but states that she first noted them a couple of months. She denies any known precipitatting factors. She was last seen here in 2015/2016 and states that she has been stable since then. She does not use any mode of compression and admits to sitting a lot with the extremities hanging down. She otherwise feels well and denies chills, fever, nausea, vomiiting or any chnage in her bowel habit. Progress of Wound: Wound is stable. No new complaints at this time. - Physical Exam Vital Signs Temp Pulse Resp BP 96.8 F L 113 H 16 134/69 H 03/21/18 11:38 03/21/18 11:38 03/21/18 11:38 03/21/18 11:38 General: Alert, Oriented x3, Cooperative, No apparent distress HEENT: Atraumatic Neck: Supple Lungs: Normal air movement Abdomen: Non Tender, Obese Skin: Ulcer/ Wound Wound Measurements and Assessment WC - Nurse 1 - General Ulcer Measurement Start: 03/21/18 11:37 Freq: Status: Active Protocol: Activity Type Activity Date Activity User E-Sign Co-Sign Detail Recorded Client Recorded Date Recorded By Document 03/21/18 11:38 [facility] [id number] 03/21/18 11:50 [facility] 03/21/18 11:38 Wound Center Nurse 1 [Ulcer Assessment] #3 RLE- FARFAN -Combined with other wound No -Current Size (cm) - Length 0 -Current Size (cm) - Width 0 -Current Size (cm) - Depth 0 -Total Square Cm 0 -Date of Last Picture (Recall this 03/21/18 field) -Photo Taken Yes -Epithelialization Large 67-100% #2 LLE ULCER- SUPERIOR -Combined with other wound No -Current Size (cm) - Length 3.6 -Current Size (cm) - Width 7.7 -Current Size (cm) - Depth 0.1 -Total Square Cm 27.72 -Date of Last Picture (Recall this 03/21/18 field) -Photo Taken Yes -Epithelialization Small 1-33% -Tunneling No -Undermining/Tunneling No -Circular Undermining No -Exudate Amt Small (1-33%) -Exudate Type Serosanguineous -Wound Margin Distinct, Outline Attached -Granulation Amt Large (67-100%) -Granulation Quality Red -Slough/Fibrin Yes -Necrosis Amt Small (1-33%) -Structure Exposed None/Limited to Skin Breakdown -Texture (Norma-wound Skin Appearance) Scarring -Moisture (Norma-wound Skin Appearance Dry/Scaly ) -Color (Norma-wound Skin Appearance) Hemosiderin Staining -Temperature (Norma-wound Skin No Abnormality Appearance) (Pt Warm) -Tenderness on Palpation (Norma-wound No Skin Appearance) -Ulcer Cleansing Wound Cleanser -Foul Odor after Cleansing No -Anesthetic Used 4% Lidocaine Solution [Edema Assessment] -Lower Limb Edema Present Yes -Right Calf (cm) 581 -Right Ankle (cm) 27.5 -Left Calf (cm) 53.5 -Left Ankle (cm) 28 WC - Nurse 2 - General Ulcer CM Notes Start: 03/21/18 11:37 Freq: Status: Active Protocol: Activity Type Activity Date Activity User E-Sign Co-Sign Detail Recorded Client Recorded Date Recorded By Document 03/21/18 12:43 DV [id number] 03/21/18 12:48 DV 03/21/18 12:43 Wound Center Nurse 2 [Procedure/Treatment] #4 LLE ULCER- INFERIOR -Time 12:47 -Correct Patient Yes -Correct Side, Site, Position Yes -Correct Procedure Yes -Procedure Performed Yes -Type of Procedure Debridement -Clinical Debridement Subcutaneous -Post Debridement Size (cm) - Length 0.6 -Post Debridement Size (cm) - Width 0.1 -Post Debridement Size (cm) - Depth 0.2 -Total Square Cm 0.06 -Wound/Ulcer Outcome Not Healed -Ulcer Cleansing Rinsed/ Irrigated with Saline -Foul Odor after Cleansing No -Bioengineered Tissue No -Bleeding Controlled with Pressure -Treatment Response Procedure Tolerated Well #3 RLE- FARFAN -Time 12:44 -Correct Patient Yes -Correct Side, Site, Position Yes -Correct Procedure Yes -Procedure Performed Yes -Type of Procedure Debridement -Clinical Debridement Subcutaneous -Post Debridement Size (cm) - Length 0 -Post Debridement Size (cm) - Width 0 -Post Debridement Size (cm) - Depth 0 -Total Square Cm 0 -Wound/Ulcer Outcome Not Healed -Ulcer Cleansing Rinsed/ Irrigated with Saline -Foul Odor after Cleansing No -Bioengineered Tissue No -Bleeding Controlled with Pressure -Treatment Response Procedure Tolerated Well #2 LLE ULCER- SUPERIOR -Time 12:44 -Correct Patient Yes -Correct Side, Site, Position Yes -Correct Procedure Yes -Procedure Performed Yes -Type of Procedure Debridement -Clinical Debridement Subcutaneous -Post Debridement Size (cm) - Length 1.2 -Post Debridement Size (cm) - Width 4.8 -Post Debridement Size (cm) - Depth 0.2 -Total Square Cm 5.76 -Wound/Ulcer Outcome Not Healed -Ulcer Cleansing Rinsed/ Irrigated with Saline -Foul Odor after Cleansing No -Bioengineered Tissue No -Bleeding Controlled with Pressure -Treatment Response Procedure Tolerated Well [See Physician Procedure note for Specifics] Pain Scale: 0-10 Numeric [Pain] -Is Patient Pain Free? Yes Musculoskeletal: No Muscle Wasting Neurological: Cranial nerves II-XII grossly intact Debridement Note Post-Debridement Measurements/Treatment WC - Nurse 2 - General Ulcer CM Notes Start: 03/21/18 11:37 Freq: Status: Active Protocol: Activity Type Activity Date Activity User E-Sign Co-Sign Detail Recorded Client Recorded Date Recorded By Document 03/21/18 12:43 DV [id number] 03/21/18 12:48 DV 03/21/18 12:43 Wound Center Nurse 2 #4 LLE ULCER- INFERIOR -Time 12:47 -Correct Patient Yes -Correct Side, Site, Position Yes -Correct Procedure Yes -Procedure Performed Yes -Type of Procedure Debridement -Clinical Debridement Subcutaneous -Post Debridement Size (cm) - Length 0.6 -Post Debridement Size (cm) - Width 0.1 -Post Debridement Size (cm) - Depth 0.2 -Total Square Cm 0.06 -Wound/Ulcer Outcome Not Healed -Ulcer Cleansing Rinsed/ Irrigated with Saline -Foul Odor after Cleansing No -Bioengineered Tissue No -Bleeding Controlled with Pressure -Treatment Response Procedure Tolerated Well #3 RLE- FARFAN -Time 12:44 -Correct Patient Yes -Correct Side, Site, Position Yes -Correct Procedure Yes -Procedure Performed Yes -Type of Procedure Debridement -Clinical Debridement Subcutaneous -Post Debridement Size (cm) - Length 0 -Post Debridement Size (cm) - Width 0 -Post Debridement Size (cm) - Depth 0 -Total Square Cm 0 -Wound/Ulcer Outcome Not Healed -Ulcer Cleansing Rinsed/ Irrigated with Saline -Foul Odor after Cleansing No -Bioengineered Tissue No -Bleeding Controlled with Pressure -Treatment Response Procedure Tolerated Well #2 LLE ULCER- SUPERIOR -Time 12:44 -Correct Patient Yes -Correct Side, Site, Position Yes -Correct Procedure Yes -Procedure Performed Yes -Type of Procedure Debridement -Clinical Debridement Subcutaneous -Post Debridement Size (cm) - Length 1.2 -Post Debridement Size (cm) - Width 4.8 -Post Debridement Size (cm) - Depth 0.2 -Total Square Cm 5.76 -Wound/Ulcer Outcome Not Healed -Ulcer Cleansing Rinsed/ Irrigated with Saline -Foul Odor after Cleansing No -Bioengineered Tissue No -Bleeding Controlled with Pressure -Treatment Response Procedure Tolerated Well Pain Scale: 0-10 Numeric Is Patient Pain Free? Yes Wound debrided: Left lower extremity Lateral ( Superior ) Wound Grade/Stage: Colunga II Type of Debridement: Excisional debridement Anesthesia Used: 4% Lidocaine Solution Depth: Down to and including healthy tissue, in the subcutaneous layer Percentage of wound debrided: 100 Instrument Used: 5mm curette Tissue Removed: Slough and devitalized tissue Severity: Fat Layer Exposed Amount of bleeding with debridement: Mild Bleeding Controlled with: Pressure Patient tolerated procedure well - Additional Wound Wound debrided: Left lateral lower extremity ( Inferior ) Wound Grade/Stage: Col[place]a I Type of Debridement: Excisional debridement Anesthesia Used: 4% Lidocaine Solution Depth: Down to and including healthy tissue, in the subcutaneous layer Percentage of wound debrided: 100 Instrument Used: 5mm curette Tissue Removed: Slough and devitalized tissue Severity: Fat Layer Exposed Amount of bleeding with debridement: Mild Bleeding Controlled with: Pressure Patient tolerated procedure: Patient tolerated procedure well Assessment/Plan Active Problems Type 2 diabetes mellitus (Acute) Ulcer of lower extremity with fat layer exposed (Acute) Bilateral Assessment: Bilateral lower etxremity venous ulcers. Diabetes Mellitus type 2. Chronic Lymphedema. Plan: Wound with some improvement in the past week. No concerns for infection. Debridement done as documented above. Procedure was well-tolerated. Apply prosper to ulcer surface daily. Adaptoc over top. Continue Single layer tubi pants presser automatic for edema management. Elevate lower extremity when sitted and when in bed. Protein supplements and increased dietary protein recommended. Follow up in 1 week. Advised to call with any questions or concerns. This note was generated with [employer] dictation software. It may contain incorrect words, spelling, and punctuation that were not noted in checking the note before signing.
--- NOTE | 2018-03-23 18:04 | LEAS ---
Arterial Study - Arterial Study Arterial Study: This is a 77-year-old female with a history of hypertension, diabetes mellitus, and smoking. The patient presents with chronic nonhealing wounds to the lower extremity. Suspecting the presence of atherosclerotic peripheral arterial occlusive disease, the patient was brought to the noninvasive vascular laboratory at this time for the purpose of bilateral noninvasive lower extremity arterial assessment. Doppler signal assessment was used to evaluate the pulses at ankle level bilaterally. The posterior tibial and dorsalis pedis pulses were triphasic bilaterally. Segmental limb pressures were obtained bilaterally. The right ankle pressure, as determined by posterior tibial pulse, was measured at 146 mmHg. The right ankle pressure, as determined by dorsalis pedis pulse, was measured at 135 mmHg. The right digital pressure was measured at 95 mmHg. The left ankle pressure, as determined by posterior tibial pulse, was measured at 155 mmHg. The left ankle pressure, as determined by dorsalis pedis pulse, was measured at 144 mmHg. The left digital pressure was measured at 99 mmHg. Pulse-volume recordings were obtained bilaterally and segmentally. Waveform amplitudes appeared to be satisfactory at all levels bilaterally, including low thigh, calf, ankle, and digital levels. Resting ankle-brachial indices were calculated bilaterally. The resting right ankle-brachial index was calculated to be 1.03. The resting left ankle-brachial index was calculated to be 1.09. Digital-brachial indices were calculated bilaterally. The right digital-brachial index was calculated to be 0.67. The left digital-brachial index was calculated to be 0.70. Impression: Based upon the findings of this resting noninvasive lower extremity arterial study, arterial perfusion to ankle level appears to be relatively normal. Triphasic waveforms were noted at ankle level bilaterally. Resting ankle-brachial indices are bilaterally normal. 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 The left digital-brachial index is low-normal.
--- NOTE | 2018-03-23 18:12 | LEAS_ITS ---
Arterial Study - Arterial Study Arterial Study: This is a 77-year-old female with a history of hypertension, diabetes mellitus, and smoking. The patient presents with chronic nonhealing wounds to the lower extremity. Suspecting the presence of atherosclerotic peripheral arterial occlusive disease, the patient was brought to the noninvasive vascular laboratory at this time for the purpose of bilateral noninvasive lower extremity arterial assessment. Doppler signal assessment was used to evaluate the pulses at ankle level bilaterally. The posterior tibial and dorsalis pedis pulses were triphasic bilaterally. Segmental limb pressures were obtained bilaterally. The right ankle pressure, as determined by posterior tibial pulse, was measured at 146 mmHg. The right ankle pressure, as determined by dorsalis pedis pulse, was measured at 135 mmHg. The right digital pressure was measured at 95 mmHg. The left ankle pressure, as determined by posterior tibial pulse, was measured at 155 mmHg. The left ankle pressure, as determined by dorsalis pedis pulse, was measured at 144 mmHg. The left digital pressure was measured at 99 mmHg. Pulse-volume recordings were obtained bilaterally and segmentally. Waveform amplitudes appeared to be satisfactory at all levels bilaterally, including low thigh, calf, ankle, and digital levels. Resting ankle-brachial indices were calculated bilaterally. The resting right ankle-brachial index was calculated to be 1.03. The resting left ankle- brachial index was calculated to be 1.09. Digital-brachial indices were calculated bilaterally. The right digital- brachial index was calculated to be 0.67. The left digital-brachial index was calculated to be 0.70. Impression: Based upon the findings of this resting noninvasive lower extremity arterial study, arterial perfusion to ankle level appears to be relatively normal. Triphasic waveforms were noted at ankle level bilaterally. Resting ankle-brachial indices are bilaterally normal. 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 The left digital- brachial index is low-normal.
[2018-03-28 12:04] VITALS: BP 122/88; PULSE 120; RESP 18; TEMP 35.8
--- NOTE | 2018-03-28 12:32 | PCM.WC.PN ---
(1) Ulcer of lower extremity with fat layer exposed Status: Acute Current Visit: Yes Qualifiers: Code(s): L97.902 - Non-pressure chronic ulcer of unspecified part of unspecified lower leg with fat layer exposed Comment: Bilateral (2) Type 2 diabetes mellitus Status: Acute Current Visit: Yes Code(s): E11.9 - Type 2 diabetes mellitus without complications (3) Edema leg Status: Chronic Current Visit: No Code(s): R60.0 - Localized edema (4) Venous ulcer of left leg Status: Chronic Current Visit: No Code(s): I83.029 - Varicose veins of left lower extremity with ulcer of unspecified site Type of Wound Date of Service: 03/28/18 Chief Complaint: Bilateral lower extremity ulcers. History of Wound: Ms. Nagy is a 77yo with PMH of Hypertension, Hyperlipidemia, type 2 Diabetes Mellitus and Chronic Venous insuficiency who presented here due to new bilateral lower extremity ulcers. She is not sure about the exact onset but states that she first noted them a couple of months. She denies any known precipitatting factors. She was last seen here in 2015/2016 and states that she has been stable since then. She does not use any mode of compression and admits to sitting a lot with the extremities hanging down. She otherwise feels well and denies chills, fever, nausea, vomiiting or any chnage in her bowel habit. Progress of Wound: Wound is stable. No new complaints at this time. - Physical Exam Vital Signs Temp Pulse Resp BP 96.4 F L 120 H 18 122/88 H 03/28/18 12:04 03/28/18 12:04 03/28/18 12:04 03/28/18 12:04 General: Alert, Oriented x3, Cooperative HEENT: Atraumatic Oral: Moist Mucosa Neck: Supple Lungs: Normal air movement Abdomen: Non Tender, Obese Extremities: Edema Skin: Ulcer/ Wound Wound Measurements and Assessment WC - Nurse 1 - General Ulcer Measurement Start: 03/21/18 11:37 Freq: Status: Active Protocol: Activity Type Activity Date Activity User E-Sign Co-Sign Detail Recorded Client Recorded Date Recorded By Document 03/28/18 12:04 [facility] [id number] 03/28/18 12:15 [facility] 03/28/18 12:04 Wound Center Nurse 1 [Ulcer Assessment] #4 LLE ULCER- INFERIOR -Combined with other wound No -Current Size (cm) - Length 0.4 -Current Size (cm) - Width 0.1 -Current Size (cm) - Depth 0.1 -Total Square Cm 0.04 -Date of Last Picture (Recall this 03/28/18 field) -Photo Taken Yes -Epithelialization Medium 34-66% -Tunneling No -Undermining/Tunneling No -Circular Undermining No -Exudate Amt Small (1-33%) -Exudate Type Serosanguineous -Wound Margin Distinct, Outline Attached -Granulation Amt Small (1-33%) -Granulation Quality Red -Slough/Fibrin Yes -Necrosis Amt Medium (34-66%) -Necrotic Tissue Type Adherent Slough -Structure Exposed None/Limited to Skin Breakdown -Texture (Norma-wound Skin Appearance) Scarring -Moisture (Norma-wound Skin Appearance Dry/Scaly ) -Color (Norma-wound Skin Appearance) Hemosiderin Staining -Temperature (Norma-wound Skin No Abnormality Appearance) (Pt Warm) -Tenderness on Palpation (Norma-wound No Skin Appearance) -Ulcer Cleansing Rinsed/ Irrigated with Saline -Foul Odor after Cleansing No -Anesthetic Used 4% Lidocaine Solution #2 LLE ULCER- SUPERIOR -Combined with other wound No -Current Size (cm) - Length 2.7 -Current Size (cm) - Width 3.9 -Current Size (cm) - Depth 0.2 -Total Square Cm 10.53 -Date of Last Picture (Recall this 03/28/18 field) -Photo Taken Yes -Epithelialization Small 1-33% -Tunneling No -Undermining/Tunneling No -Circular Undermining No -Exudate Amt Medium (34-66%) -Exudate Type Serosanguineous -Wound Margin Distinct, Outline Attached -Granulation Amt Large (67-100%) -Granulation Quality Red -Slough/Fibrin No -Necrosis Amt None Present (0 %) -Structure Exposed None/Limited to Skin Breakdown -Texture (Norma-wound Skin Appearance) Scarring -Moisture (Norma-wound Skin Appearance Dry/Scaly ) -Color (Norma-wound Skin Appearance) Assessed Hemosiderin Staining -Temperature (Norma-wound Skin No Abnormality Appearance) (Pt Warm) -Tenderness on Palpation (Norma-wound No Skin Appearance) -Ulcer Cleansing Rinsed/ Irrigated with Saline -Foul Odor after Cleansing No -Anesthetic Used 4% Lidocaine Solution [Edema Assessment] -Lower Limb Edema Present Yes -Right Calf (cm) 45.7 -Right Ankle (cm) 26.5 -Left Calf (cm) 44.9 -Left Ankle (cm) 26.6 WC - Nurse 2 - General Ulcer CM Notes Start: 03/21/18 11:37 Freq: Status: Active Protocol: Activity Type Activity Date Activity User E-Sign Co-Sign Detail Recorded Client Recorded Date Recorded By Document 03/28/18 12:21 [id number] 03/28/18 12:24 CS 03/28/18 12:21 Wound Center Nurse 2 [Procedure/Treatment] #4 LLE ULCER- INFERIOR -Time 12:21 -Correct Patient Yes -Correct Side, Site, Position Yes -Procedure Performed No -Post Debridement Size (cm) - Length 0 -Post Debridement Size (cm) - Width 0 -Post Debridement Size (cm) - Depth 0 -Total Square Cm 0 -Wound/Ulcer Outcome Healed- Epithelialized #2 LLE ULCER- SUPERIOR -Time 12:23 -Correct Patient Yes -Correct Side, Site, Position Yes -Correct Procedure Yes -Procedure Performed Yes -Type of Procedure Debridement -Clinical Debridement Subcutaneous -Post Debridement Size (cm) - Length 1.0 -Post Debridement Size (cm) - Width 4.5 -Post Debridement Size (cm) - Depth 0.2 -Total Square Cm 4.50 -Wound/Ulcer Outcome Not Healed -Ulcer Cleansing Rinsed/ Irrigated with Saline -Foul Odor after Cleansing No -Bioengineered Tissue No -Bleeding Controlled with Pressure -Treatment Response Procedure Tolerated Well [See Physician Procedure note for Specifics] Pain Scale: 0-10 Numeric [Pain] -Is Patient Pain Free? Yes Musculoskeletal: No Muscle Wasting Neurological: Cranial nerves II-XII grossly intact Psych/Mental Status: Normal Affect Debridement Note Post-Debridement Measurements/Treatment WC - Nurse 2 - General Ulcer CM Notes Start: 03/21/18 11:37 Freq: Status: Active Protocol: Activity Type Activity Date Activity User E-Sign Co-Sign Detail Recorded Client Recorded Date Recorded By Document 03/21/18 12:43 DV [id number] 03/21/18 12:48 DV Document 03/28/18 12:21 CS [id number] 03/28/18 12:24 CS 03/21/18 03/28/18 12:43 12:21 Wound Center Nurse 2 #4 LLE ULCER- INFERIOR -Time 12:47 12:21 -Correct Patient Yes Yes -Correct Side, Site, Position Yes Yes -Correct Procedure Yes -Procedure Performed Yes No -Type of Procedure Debridement -Clinical Debridement Subcutaneous -Post Debridement Size (cm) - Length 0.6 0 -Post Debridement Size (cm) - Width 0.1 0 -Post Debridement Size (cm) - Depth 0.2 0 -Total Square Cm 0.06 0 -Wound/Ulcer Outcome Not Healed Healed- Epithelialized -Ulcer Cleansing Rinsed/ Irrigated with Saline -Foul Odor after Cleansing No -Bioengineered Tissue No -Bleeding Controlled with Pressure -Treatment Response Procedure Tolerated Well #3 RLE- FARFAN -Time 12:44 -Correct Patient Yes -Correct Side, Site, Position Yes -Correct Procedure Yes -Procedure Performed Yes -Type of Procedure Debridement -Clinical Debridement Subcutaneous -Post Debridement Size (cm) - Length 0 -Post Debridement Size (cm) - Width 0 -Post Debridement Size (cm) - Depth 0 -Total Square Cm 0 -Wound/Ulcer Outcome Not Healed -Ulcer Cleansing Rinsed/ Irrigated with Saline -Foul Odor after Cleansing No -Bioengineered Tissue No -Bleeding Controlled with Pressure -Treatment Response Procedure Tolerated Well #2 LLE ULCER- SUPERIOR -Time 12:44 12:23 -Correct Patient Yes Yes -Correct Side, Site, Position Yes Yes -Correct Procedure Yes Yes -Procedure Performed Yes Yes -Type of Procedure Debridement Debridement -Clinical Debridement Subcutaneous Subcutaneous -Post Debridement Size (cm) - Length 1.2 1.0 -Post Debridement Size (cm) - Width 4.8 4.5 -Post Debridement Size (cm) - Depth 0.2 0.2 -Total Square Cm 5.76 4.50 -Wound/Ulcer Outcome Not Healed Not Healed -Ulcer Cleansing Rinsed/ Rinsed/ Irrigated with Irrigated with Saline Saline -Foul Odor after Cleansing No No -Bioengineered Tissue No No -Bleeding Controlled with Pressure Pressure -Treatment Response Procedure Procedure Tolerated Well Tolerated Well Pain Scale: 0-10 Numeric Is Patient Pain Free? Yes Yes Wound debrided: Left lower extremity Wound Grade/Stage: Left lower extremity lateral ( superior ) Anesthesia Used: 4% Lidocaine Solution Depth: Down to and including healthy tissue, in the subcutaneous layer Percentage of wound debrided: 100 Instrument Used: 5mm curette Tissue Removed: Biofilm and devitalized tissue Severity: Fat Layer Exposed Amount of bleeding with debridement: Mild Bleeding Controlled with: Pressure Patient tolerated procedure well Assessment/Plan Active Problems Type 2 diabetes mellitus (Acute) Ulcer of lower extremity with fat layer exposed (Acute) Bilateral Assessment: Bilateral lower etxremity venous ulcers. Diabetes Mellitus type 2. Chronic Lymphedema. Plan: Stable wound. Debridement done as documented above. Procedure was well-tolerated. Apply prosper to ulcer surface daily. Adaptic over top. Continue Single layer tubi coding advisor for edema management. Elevate lower extremity when sitted and when in bed. Protein supplements and increased dietary protein recommended. Follow up in 2 weeks with David Phipps NP and 3 weeks with me. Advised to call with any questions or concerns. This note was generated with [employer] dictation software. It may contain incorrect words, spelling, and punctuation that were not noted in checking the note before signing.
--- NOTE | 2018-03-28 12:36 | PN.PCM_ITS ---
(1) Ulcer of lower extremity with fat layer exposed Status: Acute Current Visit: Yes Qualifiers: Code(s): L97.902 - Non-pressure chronic ulcer of unspecified part of unspecified lower leg with fat layer exposed Comment: Bilateral (2) Type 2 diabetes mellitus Status: Acute Current Visit: Yes Code(s): E11.9 - Type 2 diabetes mellitus without complications (3) Edema leg Status: Chronic Current Visit: No Code(s): R60.0 - Localized edema (4) Venous ulcer of left leg Status: Chronic Current Visit: No Code(s): I83.029 - Varicose veins of left lower extremity with ulcer of unspecified site Type of Wound Date of Service: 03/28/18 Chief Complaint: Bilateral lower extremity ulcers. History of Wound: Ms. Nagy is a 77yo with PMH of Hypertension, Hyperlipidemia , type 2 Diabetes Mellitus and Chronic Venous insuficiency who presented here due to new bilateral lower extremity ulcers. She is not sure about the exact onset but states that she first noted them a couple of months. She denies any known precipitatting factors. She was last seen here in 2015/2016 and states that she has been stable since then. She does not use any mode of compression and admits to sitting a lot with the extremities hanging down. She otherwise feels well and denies chills, fever, nausea, vomiiting or any chnage in her bowel habit. Progress of Wound: Wound is stable. No new complaints at this time. - Physical Exam Vital Signs Temp Pulse Resp BP 96.4 F L 120 H 18 122/88 H 03/28/18 12:04 03/28/18 12:04 03/28/18 12:04 03/28/18 12:04 General: Alert, Oriented x3, Cooperative HEENT: Atraumatic Oral: Moist Mucosa Neck: Supple Lungs: Normal air movement Abdomen: Non Tender, Obese Extremities: Edema Skin: Ulcer/ Wound Wound Measurements and Assessment WC - Nurse 1 - General Ulcer Measurement Start: 03/21/18 11:37 Freq: Status: Active Protocol: Activity Type Activity Date Activity User E-Sign Co-Sign Detail Recorded Client Recorded Date Recorded By Document 03/28/18 12:04 [facility] [id number] 03/28/18 12:15 [facility] 03/28/18 12:04 Wound Center Nurse 1 [Ulcer Assessment] #4 LLE ULCER- INFERIOR -Combined with other wound No -Current Size (cm) - Length 0.4 -Current Size (cm) - Width 0.1 -Current Size (cm) - Depth 0.1 -Total Square Cm 0.04 -Date of Last Picture (Recall this 03/28/18 field) -Photo Taken Yes -Epithelialization Medium 34-66% -Tunneling No -Undermining/Tunneling No -Circular Undermining No -Exudate Amt Small (1-33%) -Exudate Type Serosanguineous -Wound Margin Distinct, Outline Attached -Granulation Amt Small (1-33%) -Granulation Quality Red -Slough/Fibrin Yes -Necrosis Amt Medium (34-66%) -Necrotic Tissue Type Adherent Slough -Structure Exposed None/Limited to Skin Breakdown -Texture (Norma-wound Skin Appearance) Scarring -Moisture (Norma-wound Skin Appearance Dry/Scaly ) -Color (Norma-wound Skin Appearance) Hemosiderin Staining -Temperature (Norma-wound Skin No Abnormality Appearance) (Pt Warm) -Tenderness on Palpation (Norma-wound No Skin Appearance) -Ulcer Cleansing Rinsed/ Irrigated with Saline -Foul Odor after Cleansing No -Anesthetic Used 4% Lidocaine Solution #2 LLE ULCER- SUPERIOR -Combined with other wound No -Current Size (cm) - Length 2.7 -Current Size (cm) - Width 3.9 -Current Size (cm) - Depth 0.2 -Total Square Cm 10.53 -Date of Last Picture (Recall this 03/28/18 field) -Photo Taken Yes -Epithelialization Small 1-33% -Tunneling No -Undermining/Tunneling No -Circular Undermining No -Exudate Amt Medium (34-66%) -Exudate Type Serosanguineous -Wound Margin Distinct, Outline Attached -Granulation Amt Large (67-100%) -Granulation Quality Red -Slough/Fibrin No -Necrosis Amt None Present (0 %) -Structure Exposed None/Limited to Skin Breakdown -Texture (Norma-wound Skin Appearance) Scarring -Moisture (Norma-wound Skin Appearance Dry/Scaly ) -Color (Norma-wound Skin Appearance) Assessed Hemosiderin Staining -Temperature (Norma-wound Skin No Abnormality Appearance) (Pt Warm) -Tenderness on Palpation (Norma-wound No Skin Appearance) -Ulcer Cleansing Rinsed/ Irrigated with Saline -Foul Odor after Cleansing No -Anesthetic Used 4% Lidocaine Solution [Edema Assessment] -Lower Limb Edema Present Yes -Right Calf (cm) 45.7 -Right Ankle (cm) 26.5 -Left Calf (cm) 44.9 -Left Ankle (cm) 26.6 WC - Nurse 2 - General Ulcer CM Notes Start: 03/21/18 11:37 Freq: Status: Active Protocol: Activity Type Activity Date Activity User E-Sign Co-Sign Detail Recorded Client Recorded Date Recorded By Document 03/28/18 12:21 [id number] 03/28/18 12:24 CS 03/28/18 12:21 Wound Center Nurse 2 [Procedure/Treatment] #4 LLE ULCER- INFERIOR -Time 12:21 -Correct Patient Yes -Correct Side, Site, Position Yes -Procedure Performed No -Post Debridement Size (cm) - Length 0 -Post Debridement Size (cm) - Width 0 -Post Debridement Size (cm) - Depth 0 -Total Square Cm 0 -Wound/Ulcer Outcome Healed- Epithelialized #2 LLE ULCER- SUPERIOR -Time 12:23 -Correct Patient Yes -Correct Side, Site, Position Yes -Correct Procedure Yes -Procedure Performed Yes -Type of Procedure Debridement -Clinical Debridement Subcutaneous -Post Debridement Size (cm) - Length 1.0 -Post Debridement Size (cm) - Width 4.5 -Post Debridement Size (cm) - Depth 0.2 -Total Square Cm 4.50 -Wound/Ulcer Outcome Not Healed -Ulcer Cleansing Rinsed/ Irrigated with Saline -Foul Odor after Cleansing No -Bioengineered Tissue No -Bleeding Controlled with Pressure -Treatment Response Procedure Tolerated Well [See Physician Procedure note for Specifics] Pain Scale: 0-10 Numeric [Pain] -Is Patient Pain Free? Yes Musculoskeletal: No Muscle Wasting Neurological: Cranial nerves II-XII grossly intact Psych/Mental Status: Normal Affect Debridement Note Post-Debridement Measurements/Treatment WC - Nurse 2 - General Ulcer CM Notes Start: 03/21/18 11:37 Freq: Status: Active Protocol: Activity Type Activity Date Activity User E-Sign Co-Sign Detail Recorded Client Recorded Date Recorded By Document 03/21/18 12:43 DV [id number] 03/21/18 12:48 DV Document 03/28/18 12:21 CS [id number] 03/28/18 12:24 CS 03/21/18 03/28/18 12:43 12:21 Wound Center Nurse 2 #4 LLE ULCER- INFERIOR -Time 12:47 12:21 -Correct Patient Yes Yes -Correct Side, Site, Position Yes Yes -Correct Procedure Yes -Procedure Performed Yes No -Type of Procedure Debridement -Clinical Debridement Subcutaneous -Post Debridement Size (cm) - Length 0.6 0 -Post Debridement Size (cm) - Width 0.1 0 -Post Debridement Size (cm) - Depth 0.2 0 -Total Square Cm 0.06 0 -Wound/Ulcer Outcome Not Healed Healed- Epithelialized -Ulcer Cleansing Rinsed/ Irrigated with Saline -Foul Odor after Cleansing No -Bioengineered Tissue No -Bleeding Controlled with Pressure -Treatment Response Procedure Tolerated Well #3 RLE- FARFAN -Time 12:44 -Correct Patient Yes -Correct Side, Site, Position Yes -Correct Procedure Yes -Procedure Performed Yes -Type of Procedure Debridement -Clinical Debridement Subcutaneous -Post Debridement Size (cm) - Length 0 -Post Debridement Size (cm) - Width 0 -Post Debridement Size (cm) - Depth 0 -Total Square Cm 0 -Wound/Ulcer Outcome Not Healed -Ulcer Cleansing Rinsed/ Irrigated with Saline -Foul Odor after Cleansing No -Bioengineered Tissue No -Bleeding Controlled with Pressure -Treatment Response Procedure Tolerated Well #2 LLE ULCER- SUPERIOR -Time 12:44 12:23 -Correct Patient Yes Yes -Correct Side, Site, Position Yes Yes -Correct Procedure Yes Yes -Procedure Performed Yes Yes -Type of Procedure Debridement Debridement -Clinical Debridement Subcutaneous Subcutaneous -Post Debridement Size (cm) - Length 1.2 1.0 -Post Debridement Size (cm) - Width 4.8 4.5 -Post Debridement Size (cm) - Depth 0.2 0.2 -Total Square Cm 5.76 4.50 -Wound/Ulcer Outcome Not Healed Not Healed -Ulcer Cleansing Rinsed/ Rinsed/ Irrigated with Irrigated with Saline Saline -Foul Odor after Cleansing No No -Bioengineered Tissue No No -Bleeding Controlled with Pressure Pressure -Treatment Response Procedure Procedure Tolerated Well Tolerated Well Pain Scale: 0-10 Numeric Is Patient Pain Free? Yes Yes Wound debrided: Left lower extremity Wound Grade/Stage: Left lower extremity lateral ( superior ) Anesthesia Used: 4% Lidocaine Solution Depth: Down to and including healthy tissue, in the subcutaneous layer Percentage of wound debrided: 100 Instrument Used: 5mm curette Tissue Removed: Biofilm and devitalized tissue Severity: Fat Layer Exposed Amount of bleeding with debridement: Mild Bleeding Controlled with: Pressure Patient tolerated procedure well Assessment/Plan Active Problems Type 2 diabetes mellitus (Acute) Ulcer of lower extremity with fat layer exposed (Acute) Bilateral Assessment: Bilateral lower etxremity venous ulcers. Diabetes Mellitus type 2. Chronic Lymphedema. Plan: Stable wound. Debridement done as documented above. Procedure was well- tolerated. Apply prosper to ulcer surface daily. Adaptic over top. Continue Single layer tubi lead software engineer for edema management. Elevate lower extremity when sitted and when in bed. Protein supplements and increased dietary protein recommended. Follow up in 2 weeks with David Phipps NP and 3 weeks with me. Advised to call with any questions or concerns. This note was generated with [email or web address] dictation software. It may contain incorrect words, spelling, and punctuation that were not noted in checking the note before signing.
== END 2018-04-07 23:59 ==
LOC: WC 10:30
PROVIDERS: Family Provider Family Medicine; PCP Family Medicine; Visit Provider Internal Medicine
DX: E11.622 Type 2 diabetes mellitus with other skin ulcer (principal); R60.0 Localized edema; I83.028 Varicose veins of left lower extremity with ulcer other part of lower leg; L97.822 Non-pressure chronic ulcer of other part of left lower leg with fat layer exposed; I89.0 Lymphedema, not elsewhere classified; I10 Essential (primary) hypertension; E78.5 Hyperlipidemia, unspecified; E11.51 Type 2 diabetes mellitus with diabetic peripheral angiopathy without gangrene
CPT/HCPCS: 11042; 93923; 93970

== ENCOUNTER 2018-05-02 12:00 | Outpatient (RCR) | payer MEDICARE, SELFPAY ==
[2018-04-08 00:59] VITALS: BP 122/88; PULSE 120; RESP 18; TEMP 35.8
[2018-04-18 10:21] VITALS: BP 132/91; PULSE 92; RESP 16; TEMP 35.7
--- NOTE | 2018-04-18 10:51 | PCM.WC.PN ---
(1) Ulcer of lower extremity with fat layer exposed Status: Acute Current Visit: Yes Qualifiers: Code(s): L97.902 - Non-pressure chronic ulcer of unspecified part of unspecified lower leg with fat layer exposed Comment: Bilateral (2) Type 2 diabetes mellitus Status: Acute Current Visit: Yes Code(s): E11.9 - Type 2 diabetes mellitus without complications (3) Venous ulcer of left leg Status: Chronic Current Visit: Yes Code(s): I83.029 - Varicose veins of left lower extremity with ulcer of unspecified site (4) Venous insufficiency Status: Acute Current Visit: Yes Code(s): I87.2 - Venous insufficiency (chronic) (peripheral) Type of Wound Date of Service: 04/18/18 Chief Complaint: Bilateral lower extremity ulcers. History of Wound: Ms. Nagy is a 77yo with PMH of Hypertension, Hyperlipidemia, type 2 Diabetes Mellitus and Chronic Venous insuficiency who presented here due to new bilateral lower extremity ulcers. She is not sure about the exact onset but states that she first noted them a couple of months. She denies any known precipitatting factors. She was last seen here in 2015/2016 and states that she has been stable since then. She does not use any mode of compression and admits to sitting a lot with the extremities hanging down. She otherwise feels well and denies chills, fever, nausea, vomiiting or any chnage in her bowel habit. Progress of Wound: Wound is stable. No new complaints at this time. - Physical Exam Vital Signs Temp Pulse Resp BP 96.2 F L 92 16 132/91 H 04/18/18 10:21 04/18/18 10:21 04/18/18 10:21 04/18/18 10:21 General: Alert, Cooperative HEENT: Atraumatic Neck: Supple Lungs: Normal air movement Abdomen: Non Tender, Obese Extremities: No cyanosis, Edema Skin: Ulcer/ Wound Wound Measurements and Assessment WC - Nurse 1 - General Ulcer Measurement Start: 04/18/18 10:21 Freq: Status: Active Protocol: Activity Type Activity Date Activity User E-Sign Co-Sign Detail Recorded Client Recorded Date Recorded By Document 04/18/18 10:21 [id number] 04/18/18 10:29 04/18/18 10:21 Wound Center Nurse 1 [Ulcer Assessment] #2 LLE ULCER- SUPERIOR -Combined with other wound No -Current Size (cm) - Length 1.4 -Current Size (cm) - Width 1.7 -Current Size (cm) - Depth 0.1 -Total Square Cm 2.38 -Photo Taken No -Epithelialization None Present -Tunneling No -Undermining/Tunneling No -Circular Undermining No -Exudate Amt Medium (34-66%) -Exudate Type Serosanguineous -Wound Margin Distinct, Outline Attached -Granulation Amt Medium (34-66%) -Granulation Quality [place] Red -Slough/Fibrin Yes -Necrosis Amt Medium (34-66%) -Necrotic Tissue Type Eschar -Texture (Norma-wound Skin Appearance) No Abnormality Assessed -Moisture (Norma-wound Skin Appearance No Abnormality ) Assessed -Color (Norma-wound Skin Appearance) No Abnormality Assessed -Temperature (Norma-wound Skin No Abnormality Appearance) (Pt Warm) -Tenderness on Palpation (Norma-wound Yes Skin Appearance) -Ulcer Cleansing Rinsed/ Irrigated with Saline -Foul Odor after Cleansing No -Anesthetic Used 4% Lidocaine Solution [Edema Assessment] -Lower Limb Edema Present Yes -Right Calf (cm) 45.3 -Right Ankle (cm) 26.0 -Left Calf (cm) 45.5 -Left Ankle (cm) 26.9 WC - Nurse 2 - General Ulcer CM Notes Start: 04/18/18 10:21 Freq: Status: Active Protocol: Activity Type Activity Date Activity User E-Sign Co-Sign Detail Recorded Client Recorded Date Recorded By Document 04/18/18 10:41 JESSICA [id number] 04/18/18 10:49 JESSICA 04/18/18 10:41 Wound Center Nurse 2 [Procedure/Treatment] #2 LLE ULCER- SUPERIOR -Time 10:48 -Correct Patient Yes -Correct Side, Site, Position Yes -Correct Procedure Yes -Procedure Performed Yes -Type of Procedure Debridement -Clinical Debridement Subcutaneous -Post Debridement Size (cm) - Length 0.8 -Post Debridement Size (cm) - Width 2.1 -Post Debridement Size (cm) - Depth 0.2 -Total Square Cm 1.68 -Wound/Ulcer Outcome Not Healed -Ulcer Cleansing Rinsed/ Irrigated with Saline -Foul Odor after Cleansing No -Bioengineered Tissue No -Topical Lidocaine (%) 4 -Lidocaine (ml) 5 -Bleeding Controlled with NA -Treatment Response Procedure Tolerated Well [See Physician Procedure note for Specifics] Pain Scale: 0-10 Numeric [Pain] -Is Patient Pain Free? Yes Musculoskeletal: No Muscle Wasting Neurological: Cranial nerves II-XII grossly intact Psych/Mental Status: Normal Affect Debridement Note Post-Debridement Measurements/Treatment WC - Nurse 2 - General Ulcer CM Notes Start: 04/18/18 10:21 Freq: Status: Active Protocol: Activity Type Activity Date Activity User E-Sign Co-Sign Detail Recorded Client Recorded Date Recorded By Document 04/18/18 10:41 JESSICA [id number] 04/18/18 10:49 JESSICA 04/18/18 10:41 Wound Center Nurse 2 #2 LLE ULCER- SUPERIOR -Time 10:48 -Correct Patient Yes -Correct Side, Site, Position Yes -Correct Procedure Yes -Procedure Performed Yes -Type of Procedure Debridement -Clinical Debridement Subcutaneous -Post Debridement Size (cm) - Length 0.8 -Post Debridement Size (cm) - Width 2.1 -Post Debridement Size (cm) - Depth 0.2 -Total Square Cm 1.68 -Wound/Ulcer Outcome Not Healed -Ulcer Cleansing Rinsed/ Irrigated with Saline -Foul Odor after Cleansing No -Bioengineered Tissue No -Topical Lidocaine (%) 4 -Lidocaine (ml) 5 -Bleeding Controlled with NA -Treatment Response Procedure Tolerated Well Pain Scale: 0-10 Numeric Is Patient Pain Free? Yes Wound debrided: Left Lower extremity Wound Grade/Stage: mccloud II Type of Debridement: Excisional debridement Anesthesia Used: 4% Lidocaine Solution Depth: Down to and including healthy tissue, in the subcutaneous layer Percentage of wound debrided: 100 Instrument Used: 5mm curette Tissue Removed: Slough and devitalized tissue Severity: Fat Layer Exposed Amount of bleeding with debridement: Mild Bleeding Controlled with: Pressure Patient tolerated procedure well Assessment/Plan Active Problems Type 2 diabetes mellitus (Acute) Venous insufficiency (Acute) Ulcer of lower extremity with fat layer exposed (Acute) Bilateral Venous ulcer of left leg (Chronic) Assessment: Bilateral lower etxremity venous ulcers. Diabetes Mellitus type 2. Chronic Lymphedema. Plan: Improving wound. Debridement done as documented above. Procedure was well-tolerated. Continue prosper to ulcer surface daily. Adaptic over top. Continue Single layer tubi environmental services director for edema management. Elevate lower extremity when sitted and when in bed. Protein supplements and increased dietary protein recommended. Follow up in 1 week. This note was generated with [employer] software. It may contain incorrect words, spelling, and punctuation that were not noted in checking the note before signing.
--- NOTE | 2018-04-18 10:55 | PN.PCM_ITS ---
(1) Ulcer of lower extremity with fat layer exposed Status: Acute Current Visit: Yes Qualifiers: Code(s): L97.902 - Non-pressure chronic ulcer of unspecified part of unspecified lower leg with fat layer exposed Comment: Bilateral (2) Type 2 diabetes mellitus Status: Acute Current Visit: Yes Code(s): E11.9 - Type 2 diabetes mellitus without complications (3) Venous ulcer of left leg Status: Chronic Current Visit: Yes Code(s): I83.029 - Varicose veins of left lower extremity with ulcer of unspecified site (4) Venous insufficiency Status: Acute Current Visit: Yes Code(s): I87.2 - Venous insufficiency ( chronic) (peripheral) Type of Wound Date of Service: 04/18/18 Chief Complaint: Bilateral lower extremity ulcers. History of Wound: Ms. Nagy is a 77yo with PMH of Hypertension, Hyperlipidemia , type 2 Diabetes Mellitus and Chronic Venous insuficiency who presented here due to new bilateral lower extremity ulcers. She is not sure about the exact onset but states that she first noted them a couple of months. She denies any known precipitatting factors. She was last seen here in 2015/2016 and states that she has been stable since then. She does not use any mode of compression and admits to sitting a lot with the extremities hanging down. She otherwise feels well and denies chills, fever, nausea, vomiiting or any chnage in her bowel habit. Progress of Wound: Wound is stable. No new complaints at this time. - Physical Exam Vital Signs Temp Pulse Resp BP 96.2 F L 92 16 132/91 H 04/18/18 10:21 04/18/18 10:21 04/18/18 10:21 04/18/18 10:21 General: Alert, Cooperative HEENT: Atraumatic Neck: Supple Lungs: Normal air movement Abdomen: Non Tender, Obese Extremities: No cyanosis, Edema Skin: Ulcer/ Wound Wound Measurements and Assessment WC - Nurse 1 - General Ulcer Measurement Start: 04/18/18 10:21 Freq: Status: Active Protocol: Activity Type Activity Date Activity User E-Sign Co-Sign Detail Recorded Client Recorded Date Recorded By Document 04/18/18 10:21 [id number] 04/18/18 10:29 04/18/18 10:21 Wound Center Nurse 1 [Ulcer Assessment] #2 LLE ULCER- SUPERIOR -Combined with other wound No -Current Size (cm) - Length 1.4 -Current Size (cm) - Width 1.7 -Current Size (cm) - Depth 0.1 -Total Square Cm 2.38 -Photo Taken No -Epithelialization None Present -Tunneling No -Undermining/Tunneling No -Circular Undermining No -Exudate Amt Medium (34-66%) -Exudate Type Serosanguineous -Wound Margin Distinct, Outline Attached -Granulation Amt Medium (34-66%) -Granulation Quality [place] Red -Slough/Fibrin Yes -Necrosis Amt Medium (34-66%) -Necrotic Tissue Type Eschar -Texture (Norma-wound Skin Appearance) No Abnormality Assessed -Moisture (Norma-wound Skin Appearance No Abnormality ) Assessed -Color (Norma-wound Skin Appearance) No Abnormality Assessed -Temperature (Norma-wound Skin No Abnormality Appearance) (Pt Warm) -Tenderness on Palpation (Norma-wound Yes Skin Appearance) -Ulcer Cleansing Rinsed/ Irrigated with Saline -Foul Odor after Cleansing No -Anesthetic Used 4% Lidocaine Solution [Edema Assessment] -Lower Limb Edema Present Yes -Right Calf (cm) 45.3 -Right Ankle (cm) 26.0 -Left Calf (cm) 45.5 -Left Ankle (cm) 26.9 WC - Nurse 2 - General Ulcer CM Notes Start: 04/18/18 10:21 Freq: Status: Active Protocol: Activity Type Activity Date Activity User E-Sign Co-Sign Detail Recorded Client Recorded Date Recorded By Document 04/18/18 10:41 JESSICA [id number] 04/18/18 10:49 JESSICA 04/18/18 10:41 Wound Center Nurse 2 [Procedure/Treatment] #2 LLE ULCER- SUPERIOR -Time 10:48 -Correct Patient Yes -Correct Side, Site, Position Yes -Correct Procedure Yes -Procedure Performed Yes -Type of Procedure Debridement -Clinical Debridement Subcutaneous -Post Debridement Size (cm) - Length 0.8 -Post Debridement Size (cm) - Width 2.1 -Post Debridement Size (cm) - Depth 0.2 -Total Square Cm 1.68 -Wound/Ulcer Outcome Not Healed -Ulcer Cleansing Rinsed/ Irrigated with Saline -Foul Odor after Cleansing No -Bioengineered Tissue No -Topical Lidocaine (%) 4 -Lidocaine (ml) 5 -Bleeding Controlled with NA -Treatment Response Procedure Tolerated Well [See Physician Procedure note for Specifics] Pain Scale: 0-10 Numeric [Pain] -Is Patient Pain Free? Yes Musculoskeletal: No Muscle Wasting Neurological: Cranial nerves II-XII grossly intact Psych/Mental Status: Normal Affect Debridement Note Post-Debridement Measurements/Treatment WC - Nurse 2 - General Ulcer CM Notes Start: 04/18/18 10:21 Freq: Status: Active Protocol: Activity Type Activity Date Activity User E-Sign Co-Sign Detail Recorded Client Recorded Date Recorded By Document 04/18/18 10:41 JESSICA [id number] 04/18/18 10:49 JESSICA 04/18/18 10:41 Wound Center Nurse 2 #2 LLE ULCER- SUPERIOR -Time 10:48 -Correct Patient Yes -Correct Side, Site, Position Yes -Correct Procedure Yes -Procedure Performed Yes -Type of Procedure Debridement -Clinical Debridement Subcutaneous -Post Debridement Size (cm) - Length 0.8 -Post Debridement Size (cm) - Width 2.1 -Post Debridement Size (cm) - Depth 0.2 -Total Square Cm 1.68 -Wound/Ulcer Outcome Not Healed -Ulcer Cleansing Rinsed/ Irrigated with Saline -Foul Odor after Cleansing No -Bioengineered Tissue No -Topical Lidocaine (%) 4 -Lidocaine (ml) 5 -Bleeding Controlled with NA -Treatment Response Procedure Tolerated Well Pain Scale: 0-10 Numeric Is Patient Pain Free? Yes Wound debrided: Left Lower extremity Wound Grade/Stage: mccloud II Type of Debridement: Excisional debridement Anesthesia Used: 4% Lidocaine Solution Depth: Down to and including healthy tissue, in the subcutaneous layer Percentage of wound debrided: 100 Instrument Used: 5mm curette Tissue Removed: Slough and devitalized tissue Severity: Fat Layer Exposed Amount of bleeding with debridement: Mild Bleeding Controlled with: Pressure Patient tolerated procedure well Assessment/Plan Active Problems Type 2 diabetes mellitus (Acute) Venous insufficiency (Acute) Ulcer of lower extremity with fat layer exposed (Acute) Bilateral Venous ulcer of left leg (Chronic) Assessment: Bilateral lower etxremity venous ulcers. Diabetes Mellitus type 2. Chronic Lymphedema. Plan: Improving wound. Debridement done as documented above. Procedure was well-tolerated. Continue prosper to ulcer surface daily. Adaptic over top. Continue Single layer tubi chairman of the board for edema management. Elevate lower extremity when sitted and when in bed. Protein supplements and increased dietary protein recommended. Follow up in 1 week. This note was generated with [employer] software. It may contain incorrect words, spelling, and punctuation that were not noted in checking the note before signing.
[2018-04-25 10:19] VITALS: BP 148/93; PULSE 104; RESP 16; TEMP 36.4
--- NOTE | 2018-04-25 11:26 | PCM.WC.PN ---
(1) Ulcer of lower extremity with fat layer exposed Status: Acute Current Visit: Yes Qualifiers: Code(s): L97.902 - Non-pressure chronic ulcer of unspecified part of unspecified lower leg with fat layer exposed Comment: Bilateral (2) Type 2 diabetes mellitus Status: Acute Current Visit: Yes Code(s): E11.9 - Type 2 diabetes mellitus without complications (3) Venous ulcer of left leg Status: Chronic Current Visit: Yes Code(s): I83.029 - Varicose veins of left lower extremity with ulcer of unspecified site (4) Venous insufficiency Status: Acute Current Visit: Yes Code(s): I87.2 - Venous insufficiency (chronic) (peripheral) Type of Wound Date of Service: 04/25/18 Chief Complaint: Bilateral lower extremity ulcers. History of Wound: Ms. Nagy is a 77yo with PMH of Hypertension, Hyperlipidemia, type 2 Diabetes Mellitus and Chronic Venous insuficiency who presented here due to new bilateral lower extremity ulcers. She is not sure about the exact onset but states that she first noted them a couple of months. She denies any known precipitatting factors. She was last seen here in 2015/2016 and states that she has been stable since then. She does not use any mode of compression and admits to sitting a lot with the extremities hanging down. She otherwise feels well and denies chills, fever, nausea, vomiiting or any chnage in her bowel habit. Progress of Wound: Wound is stable. No new complaints at this time. - Physical Exam Vital Signs Temp Pulse Resp BP 97.6 F L 104 H 16 148/93 H 04/25/18 10:19 04/25/18 10:19 04/25/18 10:19 04/25/18 10:19 General: Alert, Oriented x3, Cooperative, No apparent distress HEENT: Atraumatic Oral: Moist Mucosa Neck: Supple Lungs: Normal air movement Extremities: No cyanosis, Edema Skin: Ulcer/ Wound Wound Measurements and Assessment - Nurse 1 - General Ulcer Measurement Start: 04/18/18 10:21 Freq: Status: Active Protocol: Activity Type Activity Date Activity User E-Sign Co-Sign Detail Recorded Client Recorded Date Recorded By Document 04/25/18 10:19 [id number] 04/25/18 10:26 04/25/18 10:19 Wound Center Nurse 1 [Ulcer Assessment] #2 LLE ULCER- SUPERIOR -Combined with other wound No -Current Size (cm) - Length 1.4 -Current Size (cm) - Width 1.5 -Current Size (cm) - Depth 0.2 -Total Square Cm 2.10 -Date of Last Picture (Recall this 04/25/18 field) -Photo Taken Yes -Tunneling No -Undermining/Tunneling No -Exudate Amt Small (1-33%) -Exudate Type Serosanguineous -Wound Margin Distinct, Outline Attached -Granulation Amt Small (1-33%) -Granulation Quality Red -Slough/Fibrin Yes -Necrosis Amt None Present (0 %) -Necrotic Tissue Type Adherent Slough -Structure Exposed None/Limited to Skin Breakdown -Texture (Norma-wound Skin Appearance) Assessed Scarring -Moisture (Norma-wound Skin Appearance No Abnormality ) Assessed -Color (Norma-wound Skin Appearance) No Abnormality Assessed -Temperature (Norma-wound Skin No Abnormality Appearance) (Pt Warm) -Tenderness on Palpation (Norma-wound No Skin Appearance) -Ulcer Cleansing Wound Cleanser -Anesthetic Used 4% Lidocaine Solution 1. LT FARFAN -Combined with other wound No -Current Size (cm) - Length 0 -Current Size (cm) - Width 0 -Current Size (cm) - Depth 0 -Total Square Cm 0 -Date of Last Picture (Recall this 04/25/18 field) -Photo Taken Yes -Epithelialization Large 67-100% -Temperature (Norma-wound Skin No Abnormality Appearance) (Pt Warm) -Tenderness on Palpation (Norma-wound No Skin Appearance) -Ulcer Cleansing Wound Cleanser -Anesthetic Used 4% Lidocaine Solution [Edema Assessment] -Lower Limb Edema Present Yes -Right Calf (cm) 48.5 -Right Ankle (cm) 26 -Left Calf (cm) 48.6 -Left Ankle (cm) 26.5 WC - Nurse 2 - General Ulcer CM Notes Start: 04/18/18 10:21 Freq: Status: Active Protocol: Activity Type Activity Date Activity User E-Sign Co-Sign Detail Recorded Client Recorded Date Recorded By Document 04/25/18 11:23 JESSICA [id number] 04/25/18 11:24 JESSICA 04/25/18 11:23 Wound Center Nurse 2 [Procedure/Treatment] #2 LLE ULCER- SUPERIOR -Time 11:24 -Correct Patient Yes -Correct Side, Site, Position Yes -Correct Procedure Yes -Procedure Performed Yes -Type of Procedure Debridement -Clinical Debridement Subcutaneous -Post Debridement Size (cm) - Length 0.7 -Post Debridement Size (cm) - Width 2.0 -Post Debridement Size (cm) - Depth 0.2 -Total Square Cm 1.40 -Wound/Ulcer Outcome Not Healed -Ulcer Cleansing Rinsed/ Irrigated with Saline -Foul Odor after Cleansing No -Bioengineered Tissue No -Topical Lidocaine (%) 4 -Lidocaine (ml) 5 -Bleeding Controlled with NA -Treatment Response Procedure Tolerated Well [See Physician Procedure note for Specifics] Pain Scale: 0-10 Numeric [Pain] -Is Patient Pain Free? Yes Musculoskeletal: No Muscle Wasting Neurological: Cranial nerves II-XII grossly intact Psych/Mental Status: Normal Affect Debridement Note Post-Debridement Measurements/Treatment WC - Nurse 2 - General Ulcer CM Notes Start: 04/18/18 10:21 Freq: Status: Active Protocol: Activity Type Activity Date Activity User E-Sign Co-Sign Detail Recorded Client Recorded Date Recorded By Document 04/18/18 10:41 [id number] 04/18/18 10:49 Document 04/25/18 11:23 [id number] 04/25/18 11:24 04/18/18 04/25/18 10:41 11:23 Wound Center Nurse 2 #2 LLE ULCER- SUPERIOR -Time 10:48 11:24 -Correct Patient Yes Yes -Correct Side, Site, Position Yes Yes -Correct Procedure Yes Yes -Procedure Performed Yes Yes -Type of Procedure Debridement Debridement -Clinical Debridement Subcutaneous Subcutaneous -Post Debridement Size (cm) - Length 0.8 0.7 -Post Debridement Size (cm) - Width 2.1 2.0 -Post Debridement Size (cm) - Depth 0.2 0.2 -Total Square Cm 1.68 1.40 -Wound/Ulcer Outcome Not Healed Not Healed -Ulcer Cleansing Rinsed/ Rinsed/ Irrigated with Irrigated with Saline Saline -Foul Odor after Cleansing No No -Bioengineered Tissue No No -Topical Lidocaine (%) 4 4 -Lidocaine (ml) 5 5 -Bleeding Controlled with NA NA -Treatment Response Procedure Procedure Tolerated Well Tolerated Well Pain Scale: 0-10 Numeric Is Patient Pain Free? Yes Yes Wound debrided: Left lower extremity Wound Grade/Stage: [place] II Type of Debridement: Excisional debridement Anesthesia Used: 4% Lidocaine Solution Depth: Down to and including healthy tissue, in the subcutaneous layer Percentage of wound debrided: 100 Instrument Used: 5mm curette Tissue Removed: SLough and devitalized tissue Severity: Fat Layer Exposed Amount of bleeding with debridement: Mild Bleeding Controlled with: Pressure Patient tolerated procedure well Assessment/Plan Active Problems Type 2 diabetes mellitus (Acute) Venous insufficiency (Acute) Ulcer of lower extremity with fat layer exposed (Acute) Bilateral Venous ulcer of left leg (Chronic) Assessment: Bilateral lower etxremity venous ulcers. Diabetes Mellitus type 2. Chronic Lymphedema. Plan: Improving wound. Debridement done as documented above. Procedure was well-tolerated. Continue prosper to ulcer with adaptic over top. Leave in place for 1 week. Switch to 3M wraps for edema management. Elevate lower extremity when sitted and when in bed. Protein supplements and increased dietary protein recommended. Follow up in 1 week with me and in 3 days for a NV. Advised to call with any questions or concerns. This note was generated with [employer] dictation software. It may contain incorrect words, spelling, and punctuation that were not noted in checking the note before signing.
--- NOTE | 2018-04-25 11:33 | PN.PCM_ITS ---
(1) Ulcer of lower extremity with fat layer exposed Status: Acute Current Visit: Yes Qualifiers: Code(s): L97.902 - Non-pressure chronic ulcer of unspecified part of unspecified lower leg with fat layer exposed Comment: Bilateral (2) Type 2 diabetes mellitus Status: Acute Current Visit: Yes Code(s): E11.9 - Type 2 diabetes mellitus without complications (3) Venous ulcer of left leg Status: Chronic Current Visit: Yes Code(s): I83.029 - Varicose veins of left lower extremity with ulcer of unspecified site (4) Venous insufficiency Status: Acute Current Visit: Yes Code(s): I87.2 - Venous insufficiency ( chronic) (peripheral) Type of Wound Date of Service: 04/25/18 Chief Complaint: Bilateral lower extremity ulcers. History of Wound: Ms. Nagy is a 77yo with PMH of Hypertension, Hyperlipidemia , type 2 Diabetes Mellitus and Chronic Venous insuficiency who presented here due to new bilateral lower extremity ulcers. She is not sure about the exact onset but states that she first noted them a couple of months. She denies any known precipitatting factors. She was last seen here in 2015/2016 and states that she has been stable since then. She does not use any mode of compression and admits to sitting a lot with the extremities hanging down. She otherwise feels well and denies chills, fever, nausea, vomiiting or any chnage in her bowel habit. Progress of Wound: Wound is stable. No new complaints at this time. - Physical Exam Vital Signs Temp Pulse Resp BP 97.6 F L 104 H 16 148/93 H 04/25/18 10:19 04/25/18 10:19 04/25/18 10:19 04/25/18 10:19 General: Alert, Oriented x3, Cooperative, No apparent distress HEENT: Atraumatic Oral: Moist Mucosa Neck: Supple Lungs: Normal air movement Extremities: No cyanosis, Edema Skin: Ulcer/ Wound Wound Measurements and Assessment - Nurse 1 - General Ulcer Measurement Start: 04/18/18 10:21 Freq: Status: Active Protocol: Activity Type Activity Date Activity User E-Sign Co-Sign Detail Recorded Client Recorded Date Recorded By Document 04/25/18 10:19 [id number] 04/25/18 10:26 04/25/18 10:19 Wound Center Nurse 1 [Ulcer Assessment] #2 LLE ULCER- SUPERIOR -Combined with other wound No -Current Size (cm) - Length 1.4 -Current Size (cm) - Width 1.5 -Current Size (cm) - Depth 0.2 -Total Square Cm 2.10 -Date of Last Picture (Recall this 04/25/18 field) -Photo Taken Yes -Tunneling No -Undermining/Tunneling No -Exudate Amt Small (1-33%) -Exudate Type Serosanguineous -Wound Margin Distinct, Outline Attached -Granulation Amt Small (1-33%) -Granulation Quality Red -Slough/Fibrin Yes -Necrosis Amt None Present (0 %) -Necrotic Tissue Type Adherent Slough -Structure Exposed None/Limited to Skin Breakdown -Texture (Norma-wound Skin Appearance) Assessed Scarring -Moisture (Norma-wound Skin Appearance No Abnormality ) Assessed -Color (Norma-wound Skin Appearance) No Abnormality Assessed -Temperature (Norma-wound Skin No Abnormality Appearance) (Pt Warm) -Tenderness on Palpation (Norma-wound No Skin Appearance) -Ulcer Cleansing Wound Cleanser -Anesthetic Used 4% Lidocaine Solution 1. LT FARFAN -Combined with other wound No -Current Size (cm) - Length 0 -Current Size (cm) - Width 0 -Current Size (cm) - Depth 0 -Total Square Cm 0 -Date of Last Picture (Recall this 04/25/18 field) -Photo Taken Yes -Epithelialization Large 67-100% -Temperature (Norma-wound Skin No Abnormality Appearance) (Pt Warm) -Tenderness on Palpation (Norma-wound No Skin Appearance) -Ulcer Cleansing Wound Cleanser -Anesthetic Used 4% Lidocaine Solution [Edema Assessment] -Lower Limb Edema Present Yes -Right Calf (cm) 48.5 -Right Ankle (cm) 26 -Left Calf (cm) 48.6 -Left Ankle (cm) 26.5 WC - Nurse 2 - General Ulcer CM Notes Start: 04/18/18 10:21 Freq: Status: Active Protocol: Activity Type Activity Date Activity User E-Sign Co-Sign Detail Recorded Client Recorded Date Recorded By Document 04/25/18 11:23 JESSICA [id number] 04/25/18 11:24 JESSICA 04/25/18 11:23 Wound Center Nurse 2 [Procedure/Treatment] #2 LLE ULCER- SUPERIOR -Time 11:24 -Correct Patient Yes -Correct Side, Site, Position Yes -Correct Procedure Yes -Procedure Performed Yes -Type of Procedure Debridement -Clinical Debridement Subcutaneous -Post Debridement Size (cm) - Length 0.7 -Post Debridement Size (cm) - Width 2.0 -Post Debridement Size (cm) - Depth 0.2 -Total Square Cm 1.40 -Wound/Ulcer Outcome Not Healed -Ulcer Cleansing Rinsed/ Irrigated with Saline -Foul Odor after Cleansing No -Bioengineered Tissue No -Topical Lidocaine (%) 4 -Lidocaine (ml) 5 -Bleeding Controlled with NA -Treatment Response Procedure Tolerated Well [See Physician Procedure note for Specifics] Pain Scale: 0-10 Numeric [Pain] -Is Patient Pain Free? Yes Musculoskeletal: No Muscle Wasting Neurological: Cranial nerves II-XII grossly intact Psych/Mental Status: Normal Affect Debridement Note Post-Debridement Measurements/Treatment WC - Nurse 2 - General Ulcer CM Notes Start: 04/18/18 10:21 Freq: Status: Active Protocol: Activity Type Activity Date Activity User E-Sign Co-Sign Detail Recorded Client Recorded Date Recorded By Document 04/18/18 10:41 [id number] 04/18/18 10:49 Document 04/25/18 11:23 [id number] 04/25/18 11:24 04/18/18 04/25/18 10:41 11:23 Wound Center Nurse 2 #2 LLE ULCER- SUPERIOR -Time 10:48 11:24 -Correct Patient Yes Yes -Correct Side, Site, Position Yes Yes -Correct Procedure Yes Yes -Procedure Performed Yes Yes -Type of Procedure Debridement Debridement -Clinical Debridement Subcutaneous Subcutaneous -Post Debridement Size (cm) - Length 0.8 0.7 -Post Debridement Size (cm) - Width 2.1 2.0 -Post Debridement Size (cm) - Depth 0.2 0.2 -Total Square Cm 1.68 1.40 -Wound/Ulcer Outcome Not Healed Not Healed -Ulcer Cleansing Rinsed/ Rinsed/ Irrigated with Irrigated with Saline Saline -Foul Odor after Cleansing No No -Bioengineered Tissue No No -Topical Lidocaine (%) 4 4 -Lidocaine (ml) 5 5 -Bleeding Controlled with NA NA -Treatment Response Procedure Procedure Tolerated Well Tolerated Well Pain Scale: 0-10 Numeric Is Patient Pain Free? Yes Yes Wound debrided: Left lower extremity Wound Grade/Stage: [place] II Type of Debridement: Excisional debridement Anesthesia Used: 4% Lidocaine Solution Depth: Down to and including healthy tissue, in the subcutaneous layer Percentage of wound debrided: 100 Instrument Used: 5mm curette Tissue Removed: SLough and devitalized tissue Severity: Fat Layer Exposed Amount of bleeding with debridement: Mild Bleeding Controlled with: Pressure Patient tolerated procedure well Assessment/Plan Active Problems Type 2 diabetes mellitus (Acute) Venous insufficiency (Acute) Ulcer of lower extremity with fat layer exposed (Acute) Bilateral Venous ulcer of left leg (Chronic) Assessment: Bilateral lower etxremity venous ulcers. Diabetes Mellitus type 2. Chronic Lymphedema. Plan: Improving wound. Debridement done as documented above. Procedure was well-tolerated. Continue prosper to ulcer with adaptic over top. Leave in place for 1 week. Switch to 3M wraps for edema management. Elevate lower extremity when sitted and when in bed. Protein supplements and increased dietary protein recommended. Follow up in 1 week with me and in 3 days for a NV. Advised to call with any questions or concerns. This note was generated with [employer] dictation software. It may contain incorrect words, spelling, and punctuation that were not noted in checking the note before signing.
[2018-04-27 14:54] VITALS: BP 157/100; PULSE 103; RESP 16; TEMP 36.4
[2018-05-02 12:35] VITALS: BP 146/79; PULSE 96; RESP 16; TEMP 36.4
--- NOTE | 2018-05-02 13:11 | PCM.WC.PN ---
(1) Ulcer of lower extremity with fat layer exposed Status: Acute Current Visit: Yes Qualifiers: Code(s): L97.902 - Non-pressure chronic ulcer of unspecified part of unspecified lower leg with fat layer exposed Comment: Bilateral (2) Type 2 diabetes mellitus Status: Acute Current Visit: Yes Code(s): E11.9 - Type 2 diabetes mellitus without complications (3) Venous ulcer of left leg Status: Chronic Current Visit: Yes Code(s): I83.029 - Varicose veins of left lower extremity with ulcer of unspecified site (4) Venous insufficiency Status: Acute Current Visit: Yes Code(s): I87.2 - Venous insufficiency (chronic) (peripheral) Type of Wound Date of Service: 05/02/18 Chief Complaint: Bilateral lower extremity ulcers. History of Wound: Ms. Nagy is a 77yo with PMH of Hypertension, Hyperlipidemia, type 2 Diabetes Mellitus and Chronic Venous insuficiency who presented here due to new bilateral lower extremity ulcers. She is not sure about the exact onset but states that she first noted them a couple of months. She denies any known precipitatting factors. She was last seen here in 2015/2016 and states that she has been stable since then. She does not use any mode of compression and admits to sitting a lot with the extremities hanging down. She otherwise feels well and denies chills, fever, nausea, vomiiting or any chnage in her bowel habit. Progress of Wound: Improving. - Physical Exam Vital Signs Temp Pulse Resp BP 97.5 F L 96 16 146/79 H 05/02/18 12:35 05/02/18 12:35 05/02/18 12:35 05/02/18 12:35 General: Alert, Oriented x3, Cooperative, No apparent distress HEENT: Atraumatic Oral: Moist Mucosa Neck: Supple Lungs: Normal air movement Abdomen: Non Tender, Obese Extremities: No cyanosis, Edema Skin: Ulcer/ Wound Wound Measurements and Assessment WC - Nurse 1 - General Ulcer Measurement Start: 04/18/18 10:21 Freq: Status: Active Protocol: Activity Type Activity Date Activity User E-Sign Co-Sign Detail Recorded Client Recorded Date Recorded By Document 05/02/18 12:35 [facility] [id number] 05/02/18 12:45 [facility] 05/02/18 12:35 Wound Center Nurse 1 [Ulcer Assessment] #2 LLE ULCER- SUPERIOR -Combined with other wound No -Current Size (cm) - Length 1.3 -Current Size (cm) - Width 1.4 -Current Size (cm) - Depth 0.2 -Total Square Cm 1.82 -Photo Taken No -Epithelialization Small 1-33% -Tunneling No -Undermining/Tunneling No -Circular Undermining No -Exudate Amt Small (1-33%) -Exudate Type Serosanguineous -Wound Margin Distinct, Outline Attached -Granulation Amt Large (67-100%) -Granulation Quality Red -Slough/Fibrin Yes -Necrosis Amt Small (1-33%) -Necrotic Tissue Type Adherent Slough -Texture (Norma-wound Skin Appearance) Scarring -Moisture (Norma-wound Skin Appearance Dry/Scaly ) -Color (Norma-wound Skin Appearance) Hemosiderin Staining -Temperature (Norma-wound Skin No Abnormality Appearance) (Pt Warm) -Tenderness on Palpation (Norma-wound No Skin Appearance) -Ulcer Cleansing Wound Cleanser -Foul Odor after Cleansing No -Anesthetic Used 4% Lidocaine Solution [Edema Assessment] -Lower Limb Edema Present Yes -Right Calf (cm) 44 -Right Ankle (cm) 25.2 -Left Calf (cm) 43 -Left Ankle (cm) 26 WC - Nurse 2 - General Ulcer CM Notes Start: 04/18/18 10:21 Freq: Status: Active Protocol: Activity Type Activity Date Activity User E-Sign Co-Sign Detail Recorded Client Recorded Date Recorded By Document 05/02/18 13:10 [id number] 05/02/18 13:11 05/02/18 13:10 Wound Center Nurse 2 [Procedure/Treatment] #2 LLE ULCER- SUPERIOR -Time 13:10 -Correct Patient Yes -Correct Side, Site, Position Yes -Correct Procedure Yes -Procedure Performed Yes -Type of Procedure Debridement -Clinical Debridement Subcutaneous -Post Debridement Size (cm) - Length 0.6 -Post Debridement Size (cm) - Width 1.5 -Post Debridement Size (cm) - Depth 0.2 -Total Square Cm 0.90 -Wound/Ulcer Outcome Not Healed -Foul Odor after Cleansing No -Bioengineered Tissue No -Bleeding Controlled with Pressure -Treatment Response Procedure Tolerated Well [See Physician Procedure note for Specifics] Pain Scale: 0-10 Numeric [Pain] -Is Patient Pain Free? Yes Musculoskeletal: No Muscle Wasting Neurological: Cranial nerves II-XII grossly intact Psych/Mental Status: Normal Affect Debridement Note Post-Debridement Measurements/Treatment WC - Nurse 2 - General Ulcer CM Notes Start: 04/18/18 10:21 Freq: Status: Active Protocol: Activity Type Activity Date Activity User E-Sign Co-Sign Detail Recorded Client Recorded Date Recorded By Document 04/18/18 10:41 [id number] 04/18/18 10:49 JS Document 04/25/18 11:23 JS [id number] 04/25/18 11:24 JS Document 05/02/18 13:10 [id number] 05/02/18 13:11 04/18/18 04/25/18 05/02/18 10:41 11:23 13:10 Wound Center Nurse 2 #2 LLE ULCER- SUPERIOR -Time 10:48 11:24 13:10 -Correct Patient Yes Yes Yes -Correct Side, Site, Position Yes Yes Yes -Correct Procedure Yes Yes Yes -Procedure Performed Yes Yes Yes -Type of Procedure Debridement Debridement Debridement -Clinical Debridement Subcutaneous Subcutaneous Subcutaneous -Post Debridement Size (cm) - Length 0.8 0.7 0.6 -Post Debridement Size (cm) - Width 2.1 2.0 1.5 -Post Debridement Size (cm) - Depth 0.2 0.2 0.2 -Total Square Cm 1.68 1.40 0.90 -Wound/Ulcer Outcome Not Healed Not Healed Not Healed -Ulcer Cleansing Rinsed/ Rinsed/ Irrigated with Irrigated with Saline Saline -Foul Odor after Cleansing No No No -Bioengineered Tissue No No No -Topical Lidocaine (%) 4 4 -Lidocaine (ml) 5 5 -Bleeding Controlled with NA NA Pressure -Treatment Response Procedure Procedure Procedure Tolerated Well Tolerated Well Tolerated Well Pain Scale: 0-10 Numeric Is Patient Pain Free? Yes Yes Yes Wound debrided: Left lower extremity Wound Grade/Stage: [place] II Type of Debridement: Excisional debridement Anesthesia Used: 4% Lidocaine Solution Depth: Down to and including healthy tissue, in the subcutaneous layer Percentage of wound debrided: 100 Instrument Used: 3mm curette Tissue Removed: Slough and devitalized tissue Severity: Fat Layer Exposed Amount of bleeding with debridement: Mild Bleeding Controlled with: Pressure Patient tolerated procedure well Assessment/Plan Active Problems Type 2 diabetes mellitus (Acute) Venous insufficiency (Acute) Ulcer of lower extremity with fat layer exposed (Acute) Bilateral Venous ulcer of left leg (Chronic) Assessment: Bilateral lower etxremity venous ulcers. Diabetes Mellitus type 2. Chronic Lymphedema. Plan: Improving wound. Debridement done as documented above. Procedure was well-tolerated. Continue prosper to ulcer with adaptic over top. Leave in place for 1 week. Switch to 3M wraps for edema management. Elevate lower extremity when sitted and when in bed. Protein supplements and increased dietary protein recommended. Optimal blood sugar control. Follow up in 1 week. Advised to call with any questions or concerns. This note was generated with [employer] dictation software. It may contain incorrect words, spelling, and punctuation that were not noted in checking the note before signing.
== END 2018-05-08 23:59 ==
LOC: WC 12:00
PROVIDERS: Family Provider Family Medicine; PCP Family Medicine; Visit Provider Internal Medicine
DX: E11.622 Type 2 diabetes mellitus with other skin ulcer (principal); I83.028 Varicose veins of left lower extremity with ulcer other part of lower leg; L97.822 Non-pressure chronic ulcer of other part of left lower leg with fat layer exposed; I89.0 Lymphedema, not elsewhere classified; I87.2 Venous insufficiency (chronic) (peripheral); I10 Essential (primary) hypertension; E78.5 Hyperlipidemia, unspecified
CPT/HCPCS: 11042; 29581; 99202; G0463

== ENCOUNTER 2018-05-17 10:00 | Outpatient (RCR) | payer MEDICARE, SELFPAY ==
[2018-05-09 00:56] VITALS: BP 146/79; PULSE 96; RESP 16; TEMP 36.4
[2018-05-10 10:43] VITALS: BP 111/62; PULSE 93; RESP 18; TEMP 35.9
--- NOTE | 2018-05-10 11:20 | PCM.WC.PN ---
(1) Ulcer of lower extremity with fat layer exposed Status: Acute Current Visit: Yes Qualifiers: Code(s): L97.902 - Non-pressure chronic ulcer of unspecified part of unspecified lower leg with fat layer exposed Comment: Bilateral (2) Venous insufficiency Status: Acute Current Visit: Yes Code(s): I87.2 - Venous insufficiency (chronic) (peripheral) (3) Venous ulcer of left leg Status: Chronic Current Visit: No Code(s): I83.029 - Varicose veins of left lower extremity with ulcer of unspecified site (4) Type 2 diabetes mellitus Status: Acute Current Visit: No Code(s): E11.9 - Type 2 diabetes mellitus without complications Type of Wound Date of Service: 05/10/18 Chief Complaint: Bilateral lower extremity ulcers. History of Wound: Ms. Nagy is a 77yo with PMH of Hypertension, Hyperlipidemia, type 2 Diabetes Mellitus and Chronic Venous insuficiency who presented here due to new bilateral lower extremity ulcers. She is not sure about the exact onset but states that she first noted them a couple of months. She denies any known precipitatting factors. She was last seen here in 2015/2016 and states that she has been stable since then. She does not use any mode of compression and admits to sitting a lot with the extremities hanging down. She otherwise feels well and denies chills, fever, nausea, vomiiting or any chnage in her bowel habit. Progress of Wound: Healed. - Physical Exam Vital Signs Temp Pulse Resp BP 96.7 F L 93 18 111/62 05/10/18 10:43 05/10/18 10:43 05/10/18 10:43 05/10/18 10:43 General: Alert, Oriented x3, Cooperative, No apparent distress HEENT: Atraumatic Oral: Moist Mucosa Neck: Supple Lungs: Normal air movement Extremities: No cyanosis, Edema Skin: Ulcer/ Wound Wound Measurements and Assessment WC - Nurse 1 - General Ulcer Measurement Start: 05/10/18 10:42 Freq: Status: Active Protocol: Activity Type Activity Date Activity User E-Sign Co-Sign Detail Recorded Client Recorded Date Recorded By Document 05/10/18 10:43 JESSICA [id number] 05/10/18 11:03 JESSICA 05/10/18 10:43 Wound Center Nurse 1 [Ulcer Assessment] #2 LLE ULCER- SUPERIOR -Combined with other wound No -Current Size (cm) - Length 0.1 -Current Size (cm) - Width 0.1 -Current Size (cm) - Depth 0.1 -Total Square Cm 0.01 -Date of Last Picture (Recall this 05/10/18 field) -Photo Taken Yes -Epithelialization Large 67-100% -Tunneling No -Undermining/Tunneling No -Circular Undermining No -Classification - Thickness Full Thickness without Exposed Support Structure -Exudate Amt None Present (0 %) -Wound Margin Distinct, Outline Attached -Granulation Amt None Present (0 %) -Granulation Quality N/A -Slough/Fibrin No -Necrotic Tissue Type Eschar -Structure Exposed None/Limited to Skin Breakdown -Texture (Norma-wound Skin Appearance) Friable -Moisture (Norma-wound Skin Appearance Dry/Scaly ) -Color (Norma-wound Skin Appearance) Hemosiderin Staining -Temperature (Norma-wound Skin No Abnormality Appearance) (Pt Warm) -Tenderness on Palpation (Nroma-wound Yes Skin Appearance) -Ulcer Cleansing [id number] -Foul Odor after Cleansing No [Edema Assessment] -Lower Limb Edema Present Yes -Right Calf (cm) 44.0 -Right Ankle (cm) 25.5 -Left Calf (cm) 43.0 -Left Ankle (cm) 25.5 WC - Nurse 2 - General Ulcer CM Notes Start: 05/10/18 10:42 Freq: Status: Active Protocol: Activity Type Activity Date Activity User E-Sign Co-Sign Detail Recorded Client Recorded Date Recorded By Document 05/10/18 11:18 JESSICA [id number] 05/10/18 11:20 JESSICA 05/10/18 11:18 Wound Center Nurse 2 [Procedure/Treatment] #2 LLE ULCER- SUPERIOR -Time 11:18 -Correct Patient Yes -Correct Side, Site, Position Yes -Correct Procedure Yes -Procedure Performed Yes -Type of Procedure Debridement -Clinical Debridement Selective -Post Debridement Size (cm) - Length 0.1 -Post Debridement Size (cm) - Width 0.1 -Post Debridement Size (cm) - Depth 0.1 -Total Square Cm 0.01 -Wound/Ulcer Outcome Not Healed -Ulcer Cleansing Rinsed/ Irrigated with Saline -Foul Odor after Cleansing No -Bioengineered Tissue No -Bleeding Controlled with NA -Treatment Response Procedure Tolerated Well [See Physician Procedure note for Specifics] Pain Scale: 0-10 Numeric [Pain] -Is Patient Pain Free? Yes Musculoskeletal: No Muscle Wasting Neurological: Cranial nerves II-XII grossly intact Psych/Mental Status: Normal Affect Debridement Note Post-Debridement Measurements/Treatment WC - Nurse 2 - General Ulcer CM Notes Start: 05/10/18 10:42 Freq: Status: Active Protocol: Activity Type Activity Date Activity User E-Sign Co-Sign Detail Recorded Client Recorded Date Recorded By Document 05/10/18 11:18 [id number] 05/10/18 11:20 05/10/18 11:18 Wound Center Nurse 2 #2 LLE ULCER- SUPERIOR -Time 11:18 -Correct Patient Yes -Correct Side, Site, Position Yes -Correct Procedure Yes -Procedure Performed Yes -Type of Procedure Debridement -Clinical Debridement Selective -Post Debridement Size (cm) - Length 0.1 -Post Debridement Size (cm) - Width 0.1 -Post Debridement Size (cm) - Depth 0.1 -Total Square Cm 0.01 -Wound/Ulcer Outcome Not Healed -Ulcer Cleansing Rinsed/ Irrigated with Saline -Foul Odor after Cleansing No -Bioengineered Tissue No -Bleeding Controlled with NA -Treatment Response Procedure Tolerated Well Pain Scale: 0-10 Numeric Is Patient Pain Free? Yes Wound debrided: Left lower extremity Wound Grade/Stage: Col[place] II Type of Debridement: Selective debridement Anesthesia Used: 4% Lidocaine Solution Depth: Down to and including healthy tissue Percentage of wound debrided: 90 Instrument Used: 3mm curette Tissue Removed: Devitalized tissue Severity: Limited To Skin Breakdown Amount of bleeding with debridement: None Patient tolerated procedure well Assessment/Plan Active Problems Venous insufficiency (Acute) Ulcer of lower extremity with fat layer exposed (Acute) Bilateral Assessment: Bilateral lower etxremity venous ulcers. Diabetes Mellitus type 2. Chronic Lymphedema. Plan: Wound has healed. Debridement done as documented above. Procedure was well tolerated. Adaptic over surface x 1 week. 3m wraps for edema management. refer to the lymphedema clinic for continued edema management. Elevate lower extremity when seated and when in bed. Protein supplements and increased dietary protein recommended. Optimal blood sugar control. Follow up in 1 week with compression stockings and discharge at that visit. Advised to call with any questions or concerns. This note was generated with [employer] software. It may contain incorrect words, spelling, and punctuation that were not noted in checking the note before signing.
--- NOTE | 2018-05-10 11:24 | PN.PCM_ITS ---
(1) Ulcer of lower extremity with fat layer exposed Status: Acute Current Visit: Yes Qualifiers: Code(s): L97.902 - Non-pressure chronic ulcer of unspecified part of unspecified lower leg with fat layer exposed Comment: Bilateral (2) Venous insufficiency Status: Acute Current Visit: Yes Code(s): I87.2 - Venous insufficiency ( chronic) (peripheral) (3) Venous ulcer of left leg Status: Chronic Current Visit: No Code(s): I83.029 - Varicose veins of left lower extremity with ulcer of unspecified site (4) Type 2 diabetes mellitus Status: Acute Current Visit: No Code(s): E11.9 - Type 2 diabetes mellitus without complications Type of Wound Date of Service: 05/10/18 Chief Complaint: Bilateral lower extremity ulcers. History of Wound: Ms. Nagy is a 77yo with PMH of Hypertension, Hyperlipidemia , type 2 Diabetes Mellitus and Chronic Venous insuficiency who presented here due to new bilateral lower extremity ulcers. She is not sure about the exact onset but states that she first noted them a couple of months. She denies any known precipitatting factors. She was last seen here in 2015/2016 and states that she has been stable since then. She does not use any mode of compression and admits to sitting a lot with the extremities hanging down. She otherwise feels well and denies chills, fever, nausea, vomiiting or any chnage in her bowel habit. Progress of Wound: Healed. - Physical Exam Vital Signs Temp Pulse Resp BP 96.7 F L 93 18 111/62 05/10/18 10:43 05/10/18 10:43 05/10/18 10:43 05/10/18 10:43 General: Alert, Oriented x3, Cooperative, No apparent distress HEENT: Atraumatic Oral: Moist Mucosa Neck: Supple Lungs: Normal air movement Extremities: No cyanosis, Edema Skin: Ulcer/ Wound Wound Measurements and Assessment WC - Nurse 1 - General Ulcer Measurement Start: 05/10/18 10:42 Freq: Status: Active Protocol: Activity Type Activity Date Activity User E-Sign Co-Sign Detail Recorded Client Recorded Date Recorded By Document 05/10/18 10:43 JESSICA [id number] 05/10/18 11:03 JESSICA 05/10/18 10:43 Wound Center Nurse 1 [Ulcer Assessment] #2 LLE ULCER- SUPERIOR -Combined with other wound No -Current Size (cm) - Length 0.1 -Current Size (cm) - Width 0.1 -Current Size (cm) - Depth 0.1 -Total Square Cm 0.01 -Date of Last Picture (Recall this 05/10/18 field) -Photo Taken Yes -Epithelialization Large 67-100% -Tunneling No -Undermining/Tunneling No -Circular Undermining No -Classification - Thickness Full Thickness without Exposed Support Structure -Exudate Amt None Present (0 %) -Wound Margin Distinct, Outline Attached -Granulation Amt None Present (0 %) -Granulation Quality N/A -Slough/Fibrin No -Necrotic Tissue Type Eschar -Structure Exposed None/Limited to Skin Breakdown -Texture (Norma-wound Skin Appearance) Friable -Moisture (Norma-wound Skin Appearance Dry/Scaly ) -Color (Norma-wound Skin Appearance) Hemosiderin Staining -Temperature (Norma-wound Skin No Abnormality Appearance) (Pt Warm) -Tenderness on Palpation (Norma-wound Yes Skin Appearance) -Ulcer Cleansing DYNAHEX -Foul Odor after Cleansing No [Edema Assessment] -Lower Limb Edema Present Yes -Right Calf (cm) 44.0 -Right Ankle (cm) 25.5 -Left Calf (cm) 43.0 -Left Ankle (cm) 25.5 WC - Nurse 2 - General Ulcer CM Notes Start: 05/10/18 10:42 Freq: Status: Active Protocol: Activity Type Activity Date Activity User E-Sign Co-Sign Detail Recorded Client Recorded Date Recorded By Document 05/10/18 11:18 JESSICA [id number] 05/10/18 11:20 JESSICA 05/10/18 11:18 Wound Center Nurse 2 [Procedure/Treatment] #2 LLE ULCER- SUPERIOR -Time 11:18 -Correct Patient Yes -Correct Side, Site, Position Yes -Correct Procedure Yes -Procedure Performed Yes -Type of Procedure Debridement -Clinical Debridement Selective -Post Debridement Size (cm) - Length 0.1 -Post Debridement Size (cm) - Width 0.1 -Post Debridement Size (cm) - Depth 0.1 -Total Square Cm 0.01 -Wound/Ulcer Outcome Not Healed -Ulcer Cleansing Rinsed/ Irrigated with Saline -Foul Odor after Cleansing No -Bioengineered Tissue No -Bleeding Controlled with NA -Treatment Response Procedure Tolerated Well [See Physician Procedure note for Specifics] Pain Scale: 0-10 Numeric [Pain] -Is Patient Pain Free? Yes Musculoskeletal: No Muscle Wasting Neurological: Cranial nerves II-XII grossly intact Psych/Mental Status: Normal Affect Debridement Note Post-Debridement Measurements/Treatment WC - Nurse 2 - General Ulcer CM Notes Start: 05/10/18 10:42 Freq: Status: Active Protocol: Activity Type Activity Date Activity User E-Sign Co-Sign Detail Recorded Client Recorded Date Recorded By Document 05/10/18 11:18 [id number] 05/10/18 11:20 05/10/18 11:18 Wound Center Nurse 2 #2 LLE ULCER- SUPERIOR -Time 11:18 -Correct Patient Yes -Correct Side, Site, Position Yes -Correct Procedure Yes -Procedure Performed Yes -Type of Procedure Debridement -Clinical Debridement Selective -Post Debridement Size (cm) - Length 0.1 -Post Debridement Size (cm) - Width 0.1 -Post Debridement Size (cm) - Depth 0.1 -Total Square Cm 0.01 -Wound/Ulcer Outcome Not Healed -Ulcer Cleansing Rinsed/ Irrigated with Saline -Foul Odor after Cleansing No -Bioengineered Tissue No -Bleeding Controlled with NA -Treatment Response Procedure Tolerated Well Pain Scale: 0-10 Numeric Is Patient Pain Free? Yes Wound debrided: Left lower extremity Wound Grade/Stage: [place] II Type of Debridement: Selective debridement Anesthesia Used: 4% Lidocaine Solution Depth: Down to and including healthy tissue Percentage of wound debrided: 90 Instrument Used: 3mm curette Tissue Removed: Devitalized tissue Severity: Limited To Skin Breakdown Amount of bleeding with debridement: None Patient tolerated procedure well Assessment/Plan Active Problems Venous insufficiency (Acute) Ulcer of lower extremity with fat layer exposed (Acute) Bilateral Assessment: Bilateral lower etxremity venous ulcers. Diabetes Mellitus type 2. Chronic Lymphedema. Plan: Wound has healed. Debridement done as documented above. Procedure was well tolerated. Adaptic over surface x 1 week. 3m wraps for edema management. refer to the lymphedema clinic for continued edema management. Elevate lower extremity when seated and when in bed. Protein supplements and increased dietary protein recommended. Optimal blood sugar control. Follow up in 1 week with compression stockings and discharge at that visit. Advised to call with any questions or concerns. This note was generated with [employer] software. It may contain incorrect words, spelling, and punctuation that were not noted in checking the note before signing.
[2018-05-17 10:31] VITALS: BP 133/78; PULSE 84; RESP 18
--- NOTE | 2018-05-17 10:37 | PCM.WC.PN ---
(1) Ulcer of lower extremity with fat layer exposed Status: Acute Current Visit: Yes Qualifiers: Code(s): L97.902 - Non-pressure chronic ulcer of unspecified part of unspecified lower leg with fat layer exposed Comment: Bilateral (2) Venous insufficiency Status: Acute Current Visit: Yes Code(s): I87.2 - Venous insufficiency (chronic) (peripheral) (3) Venous ulcer of left leg Status: Chronic Current Visit: No Code(s): I83.029 - Varicose veins of left lower extremity with ulcer of unspecified site (4) Type 2 diabetes mellitus Status: Acute Current Visit: No Code(s): E11.9 - Type 2 diabetes mellitus without complications Type of Wound Date of Service: 05/17/18 Chief Complaint: Bilateral lower extremity ulcers. History of Wound: Ms. Nagy is a 77yo with PMH of Hypertension, Hyperlipidemia, type 2 Diabetes Mellitus and Chronic Venous insuficiency who presented here due to new bilateral lower extremity ulcers. She is not sure about the exact onset but states that she first noted them a couple of months. She denies any known precipitatting factors. She was last seen here in 2015/2016 and states that she has been stable since then. She does not use any mode of compression and admits to sitting a lot with the extremities hanging down. She otherwise feels well and denies chills, fever, nausea, vomiiting or any chnage in her bowel habit. Progress of Wound: Healed. - Physical Exam Vital Signs Temp Pulse Resp BP 96.7 F L 84 18 133/78 H 05/10/18 10:43 05/17/18 10:31 05/17/18 10:31 05/17/18 10:31 General: Alert, Oriented x3, Cooperative, No apparent distress HEENT: Atraumatic Oral: Moist Mucosa Neck: Supple Lungs: Normal air movement Abdomen: Non Tender, Obese Extremities: No cyanosis, Edema Wound Measurements and Assessment WC - Nurse 1 - General Ulcer Measurement Start: 05/10/18 10:42 Freq: Status: Active Protocol: Activity Type Activity Date Activity User E-Sign Co-Sign Detail Recorded Client Recorded Date Recorded By Document 05/17/18 10:31 TN [id number] 05/17/18 10:33 TN 05/17/18 10:31 Wound Center Nurse 1 [Ulcer Assessment] #2 LLE ULCER- SUPERIOR -Combined with other wound No -Current Size (cm) - Length 0.1 -Current Size (cm) - Width 0.1 -Current Size (cm) - Depth 0.1 -Total Square Cm 0.01 -Photo Taken No -Epithelialization None Present -Tunneling No -Undermining/Tunneling No -Circular Undermining No -Classification - Thickness Full Thickness without Exposed Support Structure -Change in Wound Grade/Stage No Query Text:If change please identify the Stage/Grade in the comment (ie. S2 G3) -Exudate Amt None Present (0 %) -Granulation Amt None Present (0 %) -Necrosis Amt None Present (0 %) -Texture (Norma-wound Skin Appearance) No Abnormality Assessed -Moisture (Norma-wound Skin Appearance Assessed ) Dry/Scaly -Color (Norma-wound Skin Appearance) Assessed Hemosiderin Staining -Temperature (Norma-wound Skin No Abnormality Appearance) (Pt Warm) -Tenderness on Palpation (Norma-wound No Skin Appearance) -Ulcer Cleansing Wound Cleanser -Foul Odor after Cleansing No [Edema Assessment] -Lower Limb Edema Present Yes -Left Calf (cm) 50 -Left Ankle (cm) 29 Musculoskeletal: No Muscle Wasting Neurological: Cranial nerves II-XII grossly intact Psych/Mental Status: Normal Affect Debridement Note Post-Debridement Measurements/Treatment WC - Nurse 2 - General Ulcer CM Notes Start: 05/10/18 10:42 Freq: Status: Active Protocol: Activity Type Activity Date Activity User E-Sign Co-Sign Detail Recorded Client Recorded Date Recorded By Document 05/10/18 11:18 JESSICA [id number] 05/10/18 11:20 JESSICA 05/10/18 11:18 Wound Center Nurse 2 #2 LLE ULCER- SUPERIOR -Time 11:18 -Correct Patient Yes -Correct Side, Site, Position Yes -Correct Procedure Yes -Procedure Performed Yes -Type of Procedure Debridement -Clinical Debridement Selective -Post Debridement Size (cm) - Length 0.1 -Post Debridement Size (cm) - Width 0.1 -Post Debridement Size (cm) - Depth 0.1 -Total Square Cm 0.01 -Wound/Ulcer Outcome Not Healed -Ulcer Cleansing Rinsed/ Irrigated with Saline -Foul Odor after Cleansing No -Bioengineered Tissue No -Bleeding Controlled with NA -Treatment Response Procedure Tolerated Well Pain Scale: 0-10 Numeric Is Patient Pain Free? Yes No debridement was completed today Assessment/Plan Active Problems Venous insufficiency (Acute) Ulcer of lower extremity with fat layer exposed (Acute) Bilateral Assessment: Bilateral lower etxremity venous ulcers. Diabetes Mellitus type 2. Chronic Lymphedema. Plan: Wound stays healed. Still significant edema however as patient took off her wraps. Yet to recieve her compression stockings. 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 Advised to follow up with the lymphedema clinic. Elevate lower extremity when seated and when in bed. Protein supplements and increased dietary protein recommended. Optimal blood sugar control. Discharged from the wound clinic. Advised to call with any questions or concerns. This note was generated with [employer] dictation software. It may contain incorrect words, spelling, and punctuation that were not noted in checking the note before signing.
--- NOTE | 2018-05-17 10:40 | PN.PCM_ITS ---
(1) Ulcer of lower extremity with fat layer exposed Status: Acute Current Visit: Yes Qualifiers: Code(s): L97.902 - Non-pressure chronic ulcer of unspecified part of unspecified lower leg with fat layer exposed Comment: Bilateral (2) Venous insufficiency Status: Acute Current Visit: Yes Code(s): I87.2 - Venous insufficiency ( chronic) (peripheral) (3) Venous ulcer of left leg Status: Chronic Current Visit: No Code(s): I83.029 - Varicose veins of left lower extremity with ulcer of unspecified site (4) Type 2 diabetes mellitus Status: Acute Current Visit: No Code(s): E11.9 - Type 2 diabetes mellitus without complications Type of Wound Date of Service: 05/17/18 Chief Complaint: Bilateral lower extremity ulcers. History of Wound: Ms. Nagy is a 77yo with PMH of Hypertension, Hyperlipidemia , type 2 Diabetes Mellitus and Chronic Venous insuficiency who presented here due to new bilateral lower extremity ulcers. She is not sure about the exact onset but states that she first noted them a couple of months. She denies any known precipitatting factors. She was last seen here in 2015/2016 and states that she has been stable since then. She does not use any mode of compression and admits to sitting a lot with the extremities hanging down. She otherwise feels well and denies chills, fever, nausea, vomiiting or any chnage in her bowel habit. Progress of Wound: Healed. - Physical Exam Vital Signs Temp Pulse Resp BP 96.7 F L 84 18 133/78 H 05/10/18 10:43 05/17/18 10:31 05/17/18 10:31 05/17/18 10:31 General: Alert, Oriented x3, Cooperative, No apparent distress HEENT: Atraumatic Oral: Moist Mucosa Neck: Supple Lungs: Normal air movement Abdomen: Non Tender, Obese Extremities: No cyanosis, Edema Wound Measurements and Assessment WC - Nurse 1 - General Ulcer Measurement Start: 05/10/18 10:42 Freq: Status: Active Protocol: Activity Type Activity Date Activity User E-Sign Co-Sign Detail Recorded Client Recorded Date Recorded By Document 05/17/18 10:31 TN [id number] 05/17/18 10:33 TN 05/17/18 10:31 Wound Center Nurse 1 [Ulcer Assessment] #2 LLE ULCER- SUPERIOR -Combined with other wound No -Current Size (cm) - Length 0.1 -Current Size (cm) - Width 0.1 -Current Size (cm) - Depth 0.1 -Total Square Cm 0.01 -Photo Taken No -Epithelialization None Present -Tunneling No -Undermining/Tunneling No -Circular Undermining No -Classification - Thickness Full Thickness without Exposed Support Structure -Change in Wound Grade/Stage No Query Text:If change please identify the Stage/Grade in the comment (ie. S2 G3) -Exudate Amt None Present (0 %) -Granulation Amt None Present (0 %) -Necrosis Amt None Present (0 %) -Texture (Norma-wound Skin Appearance) No Abnormality Assessed -Moisture (Norma-wound Skin Appearance Assessed ) Dry/Scaly -Color (Norma-wound Skin Appearance) Assessed Hemosiderin Staining -Temperature (Norma-wound Skin No Abnormality Appearance) (Pt Warm) -Tenderness on Palpation (Norma-wound No Skin Appearance) -Ulcer Cleansing Wound Cleanser -Foul Odor after Cleansing No [Edema Assessment] -Lower Limb Edema Present Yes -Left Calf (cm) 50 -Left Ankle (cm) 29 Musculoskeletal: No Muscle Wasting Neurological: Cranial nerves II-XII grossly intact Psych/Mental Status: Normal Affect Debridement Note Post-Debridement Measurements/Treatment WC - Nurse 2 - General Ulcer CM Notes Start: 05/10/18 10:42 Freq: Status: Active Protocol: Activity Type Activity Date Activity User E-Sign Co-Sign Detail Recorded Client Recorded Date Recorded By Document 05/10/18 11:18 JESSICA [id number] 05/10/18 11:20 JESSICA 05/10/18 11:18 Wound Center Nurse 2 #2 LLE ULCER- SUPERIOR -Time 11:18 -Correct Patient Yes -Correct Side, Site, Position Yes -Correct Procedure Yes -Procedure Performed Yes -Type of Procedure Debridement -Clinical Debridement Selective -Post Debridement Size (cm) - Length 0.1 -Post Debridement Size (cm) - Width 0.1 -Post Debridement Size (cm) - Depth 0.1 -Total Square Cm 0.01 -Wound/Ulcer Outcome Not Healed -Ulcer Cleansing Rinsed/ Irrigated with Saline -Foul Odor after Cleansing No -Bioengineered Tissue No -Bleeding Controlled with NA -Treatment Response Procedure Tolerated Well Pain Scale: 0-10 Numeric Is Patient Pain Free? Yes No debridement was completed today Assessment/Plan Active Problems Venous insufficiency (Acute) Ulcer of lower extremity with fat layer exposed (Acute) Bilateral Assessment: Bilateral lower etxremity venous ulcers. Diabetes Mellitus type 2. Chronic Lymphedema. Plan: Wound stays healed. Still significant edema however as patient took off her wraps. Yet to recieve her compression stockings. 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 Advised to follow up with the lymphedema clinic. Elevate lower extremity when seated and when in bed. Protein supplements and increased dietary protein recommended. Optimal blood sugar control. Discharged from the wound clinic. Advised to call with any questions or concerns. This note was generated with [employer] dictation software. It may contain incorrect words, spelling, and punctuation that were not noted in checking the note before signing.
== END 2018-06-08 23:59 ==
LOC: WC 10:00
PROVIDERS: Family Provider Family Medicine; PCP Family Medicine; Visit Provider Internal Medicine
DX: E11.622 Type 2 diabetes mellitus with other skin ulcer (principal); I83.028 Varicose veins of left lower extremity with ulcer other part of lower leg; I87.2 Venous insufficiency (chronic) (peripheral); L97.812 Non-pressure chronic ulcer of other part of right lower leg with fat layer exposed; E78.5 Hyperlipidemia, unspecified; I10 Essential (primary) hypertension; I89.0 Lymphedema, not elsewhere classified
CPT/HCPCS: 29581; 97597; 99211; G0463

== ENCOUNTER 2018-06-01 09:56 | Outpatient (RCR) | payer MEDICARE, SELFPAY ==
--- NOTE | 2018-06-01 11:08 | HP.OTEVAL_ITS ---
Patient's Visit Information DENIZ LYMAN is a 77 year old F, referred to Occupational Therapy by Thiago Wakefield MD, with a diagnosis of BLE lymphedema. Date of Evaluation: 06/01/18 Occupational Therapist: Jael Galvez, FRANCES/Avila, CHT - Subjective Subjective: Pt states she has had swelling in her legs for a long time. pt states she has compression hose and they need replaced at this time. pt states she needs to order ther compression hose through her insurance company. - Lymphedema (Circumferential Measure) Mid-foot: right 25cm left 24cm Ankle: right 30cm left 30cm Lower calf: right 32cm left 31cm Largest calf: right 47cm left 47cm Below knee: right 45cm left 48cm Above knee: right 52cm left 52cm - Lower Limb Functional Index Lower Extremity Functional Score: 21 - Goals Demonstrate adequate knowledge skin care/prec by 2nd week: Yes Demonstrate adequate knowledge therapeutic exercises by d/c: Yes Select approp compression garment w/donning/care/wear by d/c: Yes Voice need to replace compression garment every 4-6mo by dc: Yes - Rehabilitation General Assessment: Pt demo with stage 1 lymphedema at this time. Pt is in need of new compression garments 20-30mmHg. PT and pts son ed. on compression garments care and need of wearing. pt feels she has to order through her insurance company. Pt to double check that and call therapist to confirm. Today pt was ed. on why she needs compression socks on during the day. Pt ed. on lymph ex., skin care and to replace compression socks every 4-6 months. pt and pts son demo understanding. pt to call with questions, concerns and to let therapist know when she gets her compression socks. pt to return once she gets her compression hose to ensure proper fit. Rehabilitation Potential: Good - Anticipated Interventions Anticipated Interventions: Education re Diagnosis, Manual Lymph Drainage, Education re Life-long lymphedema Management, Education re Skin Care and Precautions, Education re Correct Donning Tech,Care&Wearing Sched Comp Garments , Home Program - Visit Plan General Plan: pt to return once she has compression socks to ensure proper fit and review lymoh ex. skin care and use of compression socks. TEXT: Thank you for the opportunity to evaluate your patient. For Medicare and Medicare HMO plans, please review the plan of care and approve it. It will need to be FAXED BACK to us at [phone] for Medicare purposes. Please let me know if there are questions or concerns regarding this plan of care. Physician Signature: Date:
--- NOTE | 2018-08-07 07:57 | HP.OTDCNRP_ITS ---
HP - Discharge Summary - Patient Information DENIZ LYMAN was seen in my office for initial evaluation on 06/01/18. The following Plan of Care was established for this patient: - Anticipated Interventions Anticipated Interventions: Education re Diagnosis, Manual Lymph Drainage, E ducation re Life-long lymphedema Management, Education re Skin Care and Precautions, Education re Correct Donning Tech,Care&Wearing Sched Comp Garments, Home Program This patient was last seen in our office 06/01/18. Pertinent comments regarding their Occupational therapy will appear below: Pt was seen for inital OTeval only. pt and family were ed.on lymphedema, skin care, precautions with use of compression garments- Both demo understanding of the need of compression socks and agreed to buy a pair- 20-30mmHg. Pt and family were ed. sizing and where to buy the compression gaments- pt was to return to ensure proper fit but has not done so at this time. pt d/c due to non attendance. At this point I will be discontinuing this patient from occupational therapy. I would be happy to see this patient again in the future if found appropriate by the physician. Thank you! Jael Galvez, OTR/L, CHT
== END 2018-06-01 19:00 | disposition home or self-care (01) ==
LOC: OT 09:56
PROVIDERS: Family Provider Family Medicine; PCP Family Medicine; Visit Provider Internal Medicine
DX: I87.2 Venous insufficiency (chronic) (peripheral) (principal); I89.0 Lymphedema, not elsewhere classified; L97.229 Non-pressure chronic ulcer of left calf with unspecified severity
CPT/HCPCS: 97166

== ENCOUNTER → 2020-05-01 06:50 | Outpatient (REF) | payer MEDICARE, SELFPAY | LOC: OLS.ACW200 06:50 | PROVIDERS: PCP Family Medicine; Referring Provider Family Medicine; Visit Provider Family Medicine | DX: Z11.59 Encounter for screening for other viral diseases (principal); M48.061 Spinal stenosis, lumbar region without neurogenic claudication; M62.81 Muscle weakness (generalized); R26.81 Unsteadiness on feet; R27.9 Unspecified lack of coordination; M51.37 Other intervertebral disc degeneration, lumbosacral region | CPT/HCPCS: 87635; U0003 ==

== ENCOUNTER 2023-10-24 17:37 | Emergency (ER) | payer MEDICARE, SELFPAY ==
[2023-10-24 17:38] VITALS: BP 116/65; PULSE 86; RESP 24; TEMP 36.6; O2SAT 97; BMI 42.6
--- NOTE | 2023-10-24 17:56 | EKG12_ITS ---
Test Reason : DYSRHYTHMIA Blood Pressure : / mmHG Vent. Rate : 077 BPM Atrial Rate : 000 BPM P-R Int : 000 ms QRS Dur : 132 ms QT Int : 396 ms P-R-T Axes : 000 062 -12 degrees QTc Int : 448 ms Atrial fibrillation Right bundle branch block T wave abnormality, consider inferior ischemia Abnormal ECG Confirmed by KATHRYN WISEMAN, MICHAELA ([id number]), editor sound RIGOBERTO RODRIGUEZ ([id number]) on 10/27/2023 7:55:42 AM Referred By: VALERIE Confirmed By:MICHAELA PERALTA MD
--- NOTE | 2023-10-24 17:56 | CT_ITS ---
EXAM: CT HEAD WITHOUT INTRAVENOUS CONTRAST CLINICAL INDICATION: Weakness TECHNIQUE: Multiple axial images were obtained of the head without intravenous contrast. This CT exam was performed using one or more of the following dose reduction techniques: automated exposure control, adjustment of the mA and/or kV according to patient size, and/or use of iterative reconstruction technique. COMPARISON: No relevant prior studies available. FINDINGS: BRAIN AND EXTRA-AXIAL SPACES: There is minimal hypoattenuation in the periventricular white matter. No intra- or extra-axial hemorrhage. No evidence of acute infarct. No intracranial mass or mass effect. There is preservation of the mercer/white matter interface. Posterior fossa structures are unremarkable. No hydrocephalus. Basal cisterns are patent. BONES/JOINTS: Unremarkable. No discrete lytic or blastic abnormalities. SINUSES: Unremarkable as visualized. Clear. MASTOID AIR CELLS: Unremarkable. Clear. ORBITS: Visualized globes, extraocular muscles, optic nerves and retrobulbar fat appear unremarkable. CT/Brain/Head without Contrast IMPRESSION: 1. No acute intracranial abnormality. 2. Minimal underlying small vessel ischemia. Electronically Signed: Allen Ortiz MD at 18:43 EST ,
--- NOTE | 2023-10-24 17:58 | EDS_ITS ---
HPI History of Present Illness Chief Complaint: Weakness Informant: patient and family Narrative Narrative: Patient presents with generalized weakness. Patient seemed to be okay yesterday. Maybe a little more tired at night. She did get up this morning and was moving at around 7 AM. But she felt more tired than usual. She went back to bed a little bit before 10. Her son states that she just needed more help getting into bed than normal. She seemed to have generalized but not lateralizing weakness. After she got up she seemed to be just not using her walker as well. Possibly a little confused. There was no lateralizing weakness again. No change in speech. No visual change. Patient does admit to frequent urination but no dysuria. No known fever. No new medication or known. [facility] Medical History Afib ricci Breast CA Cholecystectomy planned Diabetes Hernia High cholesterol Hypertension Home Medications furosemide 40 mg tablet 40 mg PO BID 01/20/16 [History Last Taken Unknown] glimepiride 2 mg tablet 2 mg PO DAILY 01/20/16 [History Last Taken Unknown] metformin 500 mg tablet 500 mg PO BIDCM 01/20/16 [History Last Taken Unknown] atorvastatin 40 mg tablet 40 mg PO DAILY 10/24/23 [History Last Taken Unknown] cephalexin 500 mg capsule 500 mg PO TID 7 days #21 CAPSULES 10/24/23 [Rx Last Taken Unknown] metoprolol tartrate 25 mg tablet 25 mg PO DAILY 10/24/23 [History Last Taken Unknown] ondansetron 4 mg disintegrating tablet 4 mg PO Q8H PRN PRN Nausea #10 tabs 10/24/23 [Rx Last Taken Unknown] potassium chloride 10 mEq tablet,extended release (Klor-Con) 10 meq PO BID 10/24/23 [History Last Taken Unknown] warfarin 3 mg tablet 9 mg PO DAILY 10/24/23 [History Last Taken Unknown] Allergy/AdvReac Type Severity Reaction Status Date / Time diltiazem HCl [From Cardizem] Allergy Rash Verified 10/24/23 19:38 Surgical History H/O lumpectomy H/O: hysterectomy Hx of right mastectomy Social History Smoking Status: Former smoker ROS ROS ED Constitutional Constitutional ED: Reports other Details: Positive generalized weakness. No myalgias ; Denies fever(s) or subjective Eyes Eyes: Denies change in vision ENT ENT ED: Denies rhinorrhea Cardiovascular Cardiovascular: Denies chest pain or palpitations Respiratory/Chest Respiratory/Chest: Denies cough or dyspnea Gastrointestinal Gastrointestinal: Reports other Details: Patient evidently did have dry heaves earlier today. She never vomited. She states she is not even nauseated now. She never had abdominal pain. ; Denies abdominal pain, diarrhea, nausea or vomiting Genitourinary Genitourinary ED: Reports urinary frequency; Denies dysuria Musculoskeletal Musculoskeletal: Denies myalgias Integumentary Reports other Details: She has a healing ulcerated area on her right medial ankle. But she and family both state it is getting better. ; Denies rash Neurologic Neurologic: Reports other Details: See strip of present illness. ; Denies headache(s), paresthesias or weakness Endocrine Endocrinology: Reports polyuria; Denies polydipsia Hematologic/Lymphatic Hematologic/Lymphatic: Reports easy bleeding and easy bruising Allergic/Immunologic Allergic/Immunologic ED: Denies urticaria EXAM Physical Exam Narrative Exam Narrative: CONSTITUTIONAL: Patient is nontoxic in appearance. The patient looks comfortable. Work of breathing looks normal. HEENT: No notable trauma. Mucous membranes mildly dry. Some poor dentition but no sign of acute infection. EYES: No conjunctival injection. No proptosis. No pain with range of motion. No pallor. No visual field deficit to gross confrontation. NECK: No meningismus. No JVD. CARDIOVASCULAR: Regular rate. Irregular rhythm. I am not able to hear a murmur. No JVD. RESPIRATORY: No respiratory distress. Breathing is unlabored. No wheezes. No rhonchi. No rales. No pain with a deep breath. Saturations are normal at 97% on room air showing no hypoxia. GASTROINTESTINAL: Not distended. Bowel sounds are normal. No tenderness. No guarding. No rebound. No palpable mass. No bruit. Very small easily reduced umbilical hernia without tenderness. GENITOURINARY: No tenderness over the bladder. No CVA tenderness. MUSCULOSKELETAL: Atraumatic. Mild peripheral edema but at her baseline. I took down dressings over the right medial ankle area. There is a little moisture in the medial aspect but no significant ulceration and no sign of acute infection at all. NEUROLOGICAL: Patient is alert and oriented. No focal deficit noted. NIH stroke scale is 0. SKIN: No noted rashes. No diaphoresis. No vesicles noted. No notable pallor. See ankle exam above. PSYCHIATRIC: Patient is calm. Mood is appropriate. Const Vital Signs: 10/24/23 17:38 10/24/23 18:49 Temperature 97.8 F Temperature Source Oral Pulse Rate 86 71 Respiratory Rate 24 H Blood Pressure 116/65 146/55 H Blood Pressure Mean 82 85 Pulse Ox 97 94 Oxygen Delivery Method Room Air Room Air MDM MDM MDM Narrative Medical decision making narrative: My independent interpretation of her single view chest x-ray does show some cardiomegaly but no acute process. Reviewed final reading which has similarities. No acute process seen. My independent interpretation of her CT of the head shows chronic but no acute changes. No sign of bleeding or mass. Final reading is similar. CBC shows mildly elevated white count and minimally decreased hemoglobin also. Platelets are just minimally low. But there is no bleeding or bruising. Let her like show a rise in her baseline pain. But otherwise no acute process. Patient's glucose is a bit high at 187. Patient's urinalysis shows very long and patient TI. It is cloudy, has leukocyte Estrace, nitrites, large number of white cells and 2+ bacteria. This is also consistent with her symptoms. We discussed options with the patient and family. They would prefer to treat her at home. I think this is reasonable since her vitals are good and she has no nausea and vomiting at this time. I will write Yuliafran in case she has any issues. I will give her a dose of Rocephin here to initiate therapy. We discussed reasons to return. Patient's COVID influenza and RSV are pending at this time. The patient's COVID, influenza and RSV did come back and are negative. Lab Data Attestation: I reviewed the patient's lab results. Labs: Laboratory Results - last 24 hr 10/24/23 10/24/23 18:07 18:49 WBC 11.1 H RBC 4.00 L Hgb 11.8 L Hct 36.6 L MCV 91.5 MCH 29.5 MCHC 32.2 RDW Std Deviation 46.8 H RDW Coeff of Maximino 13.9 Plt Count 90 L MPV 11.9 Immature Gran % (Auto) 0.800 Neut % (Auto) 84.6 H Lymph % (Auto) 4.5 L [place] % (Auto) 8.6 Eos % (Auto) 1.1 Baso % (Auto) 0.4 Absolute Neuts (auto) 9.4 H Absolute Lymphs (auto) 0.50 L Nucleated RBC % 0 Differential Comment SEE COMMENTS Platelet Estimate MOD DEC RBC Morphology N CHROM Anisocytosis RARE Macrocytosis RARE Ovalocytes RARE PT 14.0 INR 1.1 Sodium 139 Potassium 3.9 Chloride 104 Carbon Dioxide 29.0 Anion Gap 6 BUN 21 H Creatinine 1.15 H Estim Creat Clear Calc 39.15 Est GFR (MDRD) Af Amer 58 L Est GFR (MDRD) Non-Af 48 L BUN/Creatinine Ratio 18.3 Glucose 187 H Calcium 9.5 Urine Color Yellow Urine Clarity Cloudy Urine pH 6.5 Ur Specific [place] 1.010 Urine Protein 100 H Urine Glucose (UA) Normal Urine Ketones Negative Urine Occult Blood 150 H Urine Nitrite Positive H Urine Bilirubin Negative Urine Urobilinogen 1 H Ur Leukocyte Esterase 500 H Urine RBC 0 SEEN Urine WBC >100 SEEN Ur Squamous Epith Cells 0-5 SEEN Urine Bacteria 2+ Urine Mucus 0 SEEN Radiography Diagnostic Testing: Clinical Impression(s) from Imaging Studies Brain CT 10/24/23 17:56 IMPRESSION: 1. No acute intracranial abnormality. 2. Minimal underlying small vessel ischemia. Electronically Signed: Allen Ortiz MD at 18:43 EST , Chest X-Ray 10/24/23 18:25 IMPRESSION: No radiographic evidence of acute cardiopulmonary disease. Electronically Signed: Allen Ortiz MD at 18:44 EST , EKG Initial EKG: Comments: My independent interpretation the patient's EKG shows a atrial fibrillation which she has a history of. She is rate controlled at 77. No ectopy. No acute ST elevation. Diffuse ST changes but she also has right bundle branch block. QRS duration is long. QTc is normal. Discharge Plan Triage Chief Complaint: Weakness ED Provider: Tylor Guadarrama Dx/Rx/DC Orders Clinical Impression: Generalized weakness, Acute UTI Instructions: Urinary Tract Infections in Women Prescriptions: New cephalexin [cephalexin] 500 mg capsule 500 mg PO TID 7 Days Qty: 21 0RF ondansetron [ondansetron] 4 mg tablet,disintegrating 4 mg PO Q8H PRN PRN (Reason: Nausea) Qty: 10 0RF No Action furosemide 40 MG tablet 40 mg PO BID metformin 500 MG tablet 500 mg PO BIDCM glimepiride 2 MG tablet 2 mg PO DAILY metoprolol tartrate 25 mg tablet 25 mg PO DAILY potassium chloride [Klor-Con 10] 10 mEq tablet extended release 10 meq PO BID warfarin 3 mg tablet 9 mg PO DAILY atorvastatin 40 mg tablet 40 mg PO DAILY Primary Care Provider: James Zavaleta Referrals: James Zavaleta, [Primary Care Provider] - 3-5 Days if not improving Disposition Disposition: Home, Self Care Capacity Legal Digital Account Manager Reflex Medical hold order details:: IF a medical hold is selected below, a suggested order for a MEDICAL HOLD will reflex upon signing the document. Next of kin: [place] law dictates a PRIORITY LIST for identifying legal decision-maker/legal next of kin in the following order (LNOK): 1st: The patient?s legal guardian, if any 2nd: The patient's spouse (if status is questionable, consult Risk Management) 3rd: The patient?s adult child(jessie) (majority, if multiple children) 4th: The patient?s parents 5th: The patient?s adult siblings (majority, if multiple children siblings)
--- NOTE | 2023-10-24 18:01 | NURSING ---
NO OLD EKGS
[2023-10-24 18:21] LABS: Absolute Neutrophil Count 9.4 X10^3/uL (2.0-7.7); Basophil# 0.05 X10^3/uL; Basophil% 0.4 % (0-1); Eosinophil# 0.12 X10^3/uL; Eosinophils% 1.1 % (0-5); Hematocrit 36.6 % (37-47); Hemoglobin 11.8 g/dL (12.0-15.0); Lymphocyte % 4.5 % (19-41); Mean Corp Hgb Conc 32.2 g/dL (32-36); Mean Corpuscular Hgb 29.5 pg (27.0-32.0); Mean Corpuscular Volume 91.5 fL (81-99); Mean Platelet Vol. 11.9 fl (6.2-12.0); Monocyte# 0.96 X10^3/uL; Monocyte% 8.6 % (0-10); NRBC Flagged by Analyzer 0 % (0-5); Neutrophil % 84.6 % (47-70); POSITIVE COUNT YES; POSITIVE DIFFERENTIAL YES; Platelet Count 90 K/mm3 (150-450); RBC Distribution Width CV 13.9 % (11.6-14.6); RBC Distribution Width SD 46.8 fl (35.1-43.9); White Blood Count 11.1 K/mm3 (4.4-11.0)
--- NOTE | 2023-10-24 18:25 | RAD_ITS ---
EXAM: XR CHEST, 1 VIEW CLINICAL INDICATION: ? Pneumonia TECHNIQUE: Frontal view of the chest. COMPARISON: No relevant prior studies available. FINDINGS: LUNGS AND PLEURAL SPACES: Unremarkable. No consolidation or edema. No pneumothorax. No effusion. HEART: Unremarkable. Cardiac silhouette not enlarged. MEDIASTINUM: Central airways and mediastinal contour are unremarkable. BONES/JOINTS: Unremarkable. No acute fracture. SOFT TISSUES: Unremarkable. RAD/Chest 1 View (Portable) IMPRESSION: No radiographic evidence of acute cardiopulmonary disease. Electronically Signed: Allen Ortiz MD at 18:44 EST ,
[2023-10-24 18:28] LABS: International Normalized Ratio 1.1
[2023-10-24 18:31] LABS: Anion Gap 6 (5-15); BUN 21 mg/dL (7-18); BUN/Creat Ratio 18.3 RATIO (10-20); Calcium,Total 9.5 mg/dL (8.5-10.1); Chloride 104 mmol/L (98-107); Creatinine, Serum 1.15 mg/dL (0.55-1.02); EST Glomerular Filtration Rate 48 mL/min (>60); Est Glom Filt Rate - Afr Amer 58 mL/min (>60); Estimated Creatinine Clearance 39.15 ml/min; Glucose 187 mg/dL (74-106); Potassium 3.9 mmol/L (3.5-5.1); Sodium Level 139 mmol/L (136-145)
[2023-10-24 18:44] LABS: Differential Indicated SCAN CRITERIA MET
[2023-10-24 18:46] LABS: Differential Comment SEE COMMENTS
[2023-10-24 18:48] LABS: Anisocytosis RARE; Macrocytosis RARE; Ovalocyte RARE; Platelet Estimate MOD DEC (ADEQ); Red Cell Morphology N CHROM NORMAL (NORM C&C)
[2023-10-24 18:49] VITALS: BP 146/55; PULSE 71; O2SAT 94
[2023-10-24 18:53] LABS: Mucous, Urine 0 SEEN /hpf (<or=2+); Red Blood Cells-Urine 0 SEEN /hpf (0-5)
[2023-10-24 19:08] LABS: Color, Urine Yellow (Yellow); Glucose, Dipstick Normal (Normal); Ketone-Dipstick Negative (Negative); Leukocyte Esterase-Dipstick 500 /ul (Negative); Nitrite-Dipstick Positive (Negative); Occult Blood-Urine 150 /ul (Negative); Protein-Dipstick 100 mg/dl (Negative); Urine Bilirubin Dipstick Negative (Negative); Urine Clarity Cloudy (Clear); Urine Urobilinogen 1 mg/dl (Normal); Urine pH 6.5 (5.0 - 8.0)
[2023-10-24 19:14] LABS: Bacteria 2+ /hpf (None Seen); Squamous Epithelial Cells - UA 0-5 SEEN /hpf (5-10); White Blood Cells >100 SEEN /hpf (0-5)
[2023-10-24] MEDS: Ceftriaxone 1 GM/50 ML BAG IV (19:57)
[2023-10-24 21:16] VITALS: BP 138/89; BP 139/88; PULSE 88; PULSE 89; RESP 16
== END 2023-10-24 21:19 | disposition home or self-care (01) ==
PROVIDERS: Emergency Provider Emergency Medicine; PCP Family Medicine; Visit Provider Emergency Medicine
DX: N39.0 Urinary tract infection, site not specified (principal); E11.9 Type 2 diabetes mellitus without complications; Z87.891 Personal history of nicotine dependence; R53.1 Weakness; E78.00 Pure hypercholesterolemia, unspecified; I10 Essential (primary) hypertension; Z90.49 Acquired absence of other specified parts of digestive tract; Z79.84 Long term (current) use of oral hypoglycemic drugs; Z79.899 Other long term (current) drug therapy; Z79.01 Long term (current) use of anticoagulants; Z90.710 Acquired absence of both cervix and uterus; Z90.10 Acquired absence of unspecified breast and nipple
CPT/HCPCS: 99285; 70450; 71045; 80048; 81001; 85025; 85610; 87077; 87086; 87088; 87631; 93005; P9612; A4216

== ENCOUNTER 2023-10-25 15:33 | Inpatient (IN) | payer MEDICARE, MEDICAID, SELFPAY ==
[2023-10-25 15:34] VITALS: BP 123/58; PULSE 91; RESP 16; TEMP 36.4; O2SAT 100
[2023-10-25 16:44] LABS: Anion Gap 8 (5-15); BUN 26 mg/dL (7-18); BUN/Creat Ratio 19.5 RATIO (10-20); Calcium,Total 9.9 mg/dL (8.5-10.1); Chloride 104 mmol/L (98-107); Creatinine, Serum 1.33 mg/dL (0.55-1.02); EST Glomerular Filtration Rate 41 mL/min (>60); Est Glom Filt Rate - Afr Amer 49 mL/min (>60); Glucose 171 mg/dL (74-106); Potassium 3.8 mmol/L (3.5-5.1); Sodium Level 139 mmol/L (136-145)
--- NOTE | 2023-10-25 16:48 | CT_ITS ---
STUDY: CT ABDOMEN AND PELVIS WITH CONTRAST REASON FOR EXAM: Female, 83 years old. abdominal pain RADIATION DOSAGE (If Supplied By Facility): CTDIvol = ( 25.16 ) mGy, DLP = ( 1200.98 ) mGycm TECHNIQUE: Transaxial images were obtained from the dome of the diaphragm to the symphysis pubis without oral contrast. IV 100mL Isovue-370 was administered. Sagittal and coronal images were reconstructed. Individualized dose optimization techniques were used for this CT. COMPARISON: None. FINDINGS: The visualized lung bases are unremarkable. The visualized portions of the heart are within normal limits. Normal liver. Moderately distended gallbladder with cholelithiasis. Mild prominence of the extrahepatic biliary system. Normal spleen. Normal pancreas. 2.8 cm right adrenal lesion. Normal right kidney. 1.6 cm cyst in the left kidney. There is left hydronephrosis with perinephric stranding. Normal visualized stomach. Normal small intestine. Normal colon. The appendix is visualized and appears normal. Normal abdominal aorta. Normal inferior vena cava. Mild adenopathy in the retroperitoneum. Normal urinary bladder. There is a fatty hernia superior to the left inguinal region. There is a fatty umbilical hernia. Normal osseous structures. CT/Abdomen/Pelvis W IV Cont ONLY IMPRESSION: Moderately distended gallbladder with cholelithiasis. Mild prominence of the extrahepatic biliary system. Normal spleen. Normal pancreas. Right adrenal lesion. Left renal cyst . There is left hydronephrosis with perinephric stranding. Infectious etiology cannot be excluded. There is a fatty hernia superior to the left inguinal region. There is a fatty umbilical hernia. Electronically Signed: Jon More DO at 17:47 EST Reading Location ID and State: [facility] / [place] Tel [phone], Service support ,
--- NOTE | 2023-10-25 16:50 | EX.ED.DYSGE1 ---
HPI History of Present Illness Chief Complaint: Confusion Narrative Narrative: 83-year-old female presenting with change in mental status. Patient was seen yesterday for similar symptoms but per family has become worse. Patient's family states that she has been both in bed in her chair and has not had any falls. Diagnosed with UTI yesterday and was given a dose of Rocephin last evening. Patient's family was supposed to cloth picker her Keflex this evening but they did not get to the pharmacy and called EMS instead due to the change in mental status. Patient has not had a fever at home. She has not been vomiting. Family states that her initial symptoms started on Monday and is started with back pain. They are unsure which side. Patient was given Tylenol and she stated that her back pain was not hurting her anymore. Family states she does have a history of kidney stones in the past which had to be removed. Patient's family states that today she was trying to get to the restroom and was using her walker and appeared to be confused and was urinating on the floor on the way to the restroom. [facility] Medical History Afib ricci Breast CA Cholecystectomy planned Diabetes Hernia High cholesterol Hypertension Home Medications furosemide 40 mg tablet 40 mg PO BID FLUID RETENTION 01/20/16 [History Last Taken Unknown] glimepiride 2 mg tablet 2 mg PO DAILY DIABETES 01/20/16 [History Last Taken Unknown] metformin 500 mg tablet 500 mg PO BIDCM DIABETES 01/20/16 [History Last Taken Unknown] atorvastatin 40 mg tablet 40 mg PO DAILY CHOLESTEROL 10/24/23 [History Last Taken Unknown] cephalexin 500 mg capsule 500 mg PO TID ANTIBIOTIC 7 days #21 CAPSULES 10/24/23 [Rx Last Taken Unknown] metoprolol tartrate 25 mg tablet 25 mg PO DAILY BLOOD PRESSURE 10/24/23 [History Last Taken Unknown] potassium chloride 10 mEq tablet,extended release (Klor-Con) 10 meq PO BID SUPPLEMENT 10/24/23 [History Last Taken Unknown] warfarin 3 mg tablet 9 mg PO DAILY BLOOD THINNER 10/24/23 [History Last Taken Unknown] ondansetron 4 mg disintegrating tablet 4 mg PO Q8H PRN Nausea 10/25/23 [History Last Taken Unknown] Allergy/AdvReac Type Severity Reaction Status Date / Time diltiazem HCl [From Cardizem] Allergy Rash Verified 10/24/23 19:38 Surgical History H/O lumpectomy H/O: hysterectomy Hx of right mastectomy Social History Smoking Status: Former smoker ROS ROS ED Review of Systems ROS Unobtainable: due to mental condition and due to mental status EXAM Physical Exam Const Vital Signs: 10/25/23 15:34 10/25/23 16:58 Temperature 97.6 F L Temperature Source Temporal Pulse Rate 91 88 Respiratory Rate 16 25 H Blood Pressure 123/58 H 127/86 H Blood Pressure Mean 79 99 Pulse Ox 100 96 Oxygen Delivery Method Room Air Room Air Positive unkempt General Appearance ED: unkempt; Negative for pallor HEENT Reports dry mucous membranes Mouth ED: Yes dry mucous membranes Mouth: dry mucous membranes Eyes PERRL and EOMs intact bilaterally Neck no lymphadenopathy Chest Wall inspection of chest normal Resp normal respiratory effort and clear to auscultation bilaterally Auscultation: Negative for rales, rhonchi or wheezes Cardio regular rate and regular rhythm GI GI Narrative: Generalized abdominal tenderness. Umbilical l hernia which appears to be reducible. Back/Spine no CVA tenderness Neuro oriented x3 and CN's II-XII intact bilaterally Sensorium / Orientation: alert Motor Exam: general weakness Psych Appearance: unkempt Skin no rashes or lesions noted and no wounds General Skin Exam: Negative for jaundice or pallor MDM MDM MDM Narrative Medical decision making narrative: Patient presenting with altered mental status. Her urinalysis yesterday showed UTI. Patient given a dose of Rocephin and urine culture was sent. Urinalysis positive for gram-negative rods. Patient has no focal neurologic deficits on exam. She is able to answer questions and knows the day and the year. She also knows the president. She does have some equivocal abdominal pain when examined. No CVA tenderness. Reviewed previous workup from yesterday and will add CBC, BMP to assess white blood cell count, hemoglobin, platelets. Will also assess renal function and electrolytes. INR was performed yesterday was subtherapeutic at 1.4. Patient does not need a repeat chest x-ray and COVID and flu were negative yesterday. Patient given a dose of Cipro IV. Will obtain a CT of the abdomen pelvis with IV contrast. CBC shows normal white blood cell count of 6.4. Hemoglobin 11.3. Platelets low at 52. Creatinine is more elevated today at 1.33. Electrolytes are normal. LFTs within normal limits. Lipase negative. Urinalysis was not obtained as of yet today but I looked back at the culture is again is positive. CT of the abdomen pelvis with IV contrast was obtained and shows a left-sided pyelonephritis. There is no evidence of kidney stone. There is evidence of gallstones but LFTs and lipase are normal. Patient not specifically tender in the right upper quadrant. Patient was initially given Cipro but the hospitalist request Zosyn for admission. Patient admitted in stable condition. Impression: 1. Pyelonephritis 2. Delirium 3. Dehydration Lab Data Labs: Laboratory Results - last 24 hr 10/25/23 10/25/23 10/25/23 16:15 16:15 18:10 WBC Cancelled 6.4 Corrected WBC Cancelled RBC Cancelled 3.77 L Hgb Cancelled 11.3 L Hct Cancelled 34.9 L MCV Cancelled 92.6 MCH Cancelled 30.0 MCHC Cancelled 32.4 RDW Std Deviation Cancelled 48.5 H RDW Coeff of Maximino Cancelled 14.3 Plt Count Cancelled 52 L MPV Cancelled 11.9 Immature Gran % (Auto) Cancelled 0.500 Neut % (Auto) Cancelled 85.0 H Lymph % (Auto) Cancelled 7.2 L [place] % (Auto) Cancelled 7.0 Eos % (Auto) Cancelled 0.0 Baso % (Auto) Cancelled 0.3 Absolute Neuts (auto) Cancelled 5.4 Absolute Lymphs (auto) Cancelled 0.46 L Total Counted Cancelled Neutrophils % (Manual) Cancelled Band Neutrophils % Cancelled Lymphocytes % (Manual) Cancelled Monocytes % (Manual) Cancelled Eosinophils % (Manual) Cancelled Basophils % (Manual) Cancelled Metamyelocytes % Cancelled Myelocytes % Cancelled Promyelocytes % Cancelled Blast Cells % Cancelled Plasma Cell % (Manual) Cancelled Other Cells % Cancelled Nucleated RBC % Cancelled 0 Nucleated RBCs/100 WBC Cancelled Differential Comment Cancelled SCANNED Diff Path Review Cancelled Hypersegmented Neuts Cancelled Atypical Lymphocytes Cancelled Reactive Lymphocytes Cancelled Smudge Cells Cancelled Toxic Granulation Cancelled Toxic Vacuolation Cancelled Dohle Bodies Cancelled Anabel Rods Cancelled Platelet Estimate Cancelled Plt Morphology Comment Cancelled RBC Morphology Cancelled Cancelled Polychromasia Cancelled Hypochromasia Cancelled Poikilocytosis Cancelled Basophilic Stippling Cancelled Anisocytosis Cancelled Microcytosis Cancelled Macrocytosis Cancelled Spherocytes Cancelled Sickle Cells Cancelled Target Cells Cancelled Tear Drop Cells Cancelled Ovalocytes Cancelled Stomatocytes Cancelled [place] Bodies Cancelled Aura Cells Cancelled Bite Cells Cancelled Crenated Cell Cancelled Acanthocytes (Spur) Cancelled Rouleaux Cancelled Schistocytes Cancelled Sodium 139 Potassium 3.8 Chloride 104 Carbon Dioxide 27.0 Anion Gap 8 BUN 26 H Creatinine 1.33 H Est GFR (MDRD) Af Amer 49 L Est GFR (MDRD) Non-Af 41 L BUN/Creatinine Ratio 19.5 Glucose 171 H Calcium 9.9 Total Bilirubin 0.70 Direct Bilirubin 0.30 AST 45 H ALT 25 Alkaline Phosphatase 81 Ammonia 25.0 Total Protein 7.3 Albumin 3.1 L Globulin 4.2 Lipase 11 L Radiography Diagnostic Testing: Clinical Impression(s) from Imaging Studies Abdomen/Pelvis CT 10/25/23 16:48 IMPRESSION: Moderately distended gallbladder with cholelithiasis. Mild prominence of the extrahepatic biliary system. Normal spleen. Normal pancreas. Right adrenal lesion. Left renal cyst . There is left hydronephrosis with perinephric stranding. Infectious etiology cannot be excluded. There is a fatty hernia superior to the left inguinal region. There is a fatty umbilical hernia. Electronically Signed: Jon More DO at 17:47 EST Reading Location ID and State: [facility] / [place] Tel [phone], Service support , Discharge Plan Triage Chief Complaint: Confusion ED Provider: Santi Jay Dx/Rx/DC Orders Primary Care Provider: James Zavaleta Legal Industrial Safety And Health Manager Reflex Medical hold order details:: IF a medical hold is selected below, a suggested order for a MEDICAL HOLD will reflex upon signing the document. Next of kin: [place] law dictates a PRIORITY LIST for identifying legal decision-maker/legal next of kin in the following order (LNOK): 1st: The patient?s legal guardian, if any 2nd: The patient's spouse (if status is questionable, consult Risk Management) 3rd: The patient?s adult child(jessie) (majority, if multiple children) 4th: The patient?s parents 5th: The patient?s adult siblings (majority, if multiple children siblings)
[2023-10-25] MEDS: 0.9% Normal Saline (1000mL) 1,000 ML 999 ML IV (16:57)
[2023-10-25 16:58] VITALS: BP 127/86; PULSE 88; RESP 25; O2SAT 96
[2023-10-25 18:00] VITALS: BP 123/71; PULSE 61; RESP 26; O2SAT 100
[2023-10-25] MEDS: Ciprofloxacin 400 MG/200 ML BAG 200 MG IV (18:17)
[2023-10-25 18:19] LABS: Absolute Lymphocyte Count 0.46 X10^3/uL (0.83-4.51); Absolute Neutrophil Count 5.4 X10^3/uL (2.0-7.7); Basophil# 0.02 X10^3/uL; Basophil% 0.3 % (0-1); Hematocrit 34.9 % (37-47); Hemoglobin 11.3 g/dL (12.0-15.0); Lymphocyte # 0.46 X10^3/ul (0.83-4.51); Lymphocyte % 7.2 % (19-41); Mean Corp Hgb Conc 32.4 g/dL (32-36); Mean Corpuscular Volume 92.6 fL (81-99); Mean Platelet Vol. 11.9 fl (6.2-12.0); Monocyte# 0.45 X10^3/uL; NRBC Flagged by Analyzer 0 % (0-5); Neutrophil # 5.44 X10^3/uL (2.7-7.7); POSITIVE COUNT YES; POSITIVE DIFFERENTIAL YES; Platelet Count 52 K/mm3 (150-450); RBC Distribution Width CV 14.3 % (11.6-14.6); RBC Distribution Width SD 48.5 fl (35.1-43.9); Red Blood Count 3.77 M/mm3 (4.2-5.4); White Blood Count 6.4 K/mm3 (4.4-11.0)
[2023-10-25 18:21] LABS: Differential Indicated SCAN CRITERIA MET
[2023-10-25 18:36] LABS: AST(SGOT) 45 U/L (15-37); Alanine Aminotransfer ALT/SGPT 25 U/L (13-56); Albumin, Serum 3.1 g/dL (3.2-5.0); Alkaline Phosphatase 81 U/L (45-117); Globulin 4.2 g/dL (2.2-4.2); Lipase 11 U/L (13-75); Protein, Total 7.3 g/dL (6.4-8.2)
[2023-10-25 18:40] LABS: Differential Comment SCANNED
--- NOTE | 2023-10-25 19:39 | PCM.HP.STD ---
[facility] - General General Date of Admission: 10/25/23 Date of Service: 10/25/23 Chief Complaint: Altered Mental Status HPI Narrative DENIZ NAGY, is a 83 F with a past medical history of essential hypertension, hyperlipidemia, diabetes mellitus type 2; of unknown control, history of atrial fibrillation; on Coumadin, history of breast cancer; status post Right mastectomy, history of hysterectomy, chronic lower extremity edema with venous insufficiency and venous ulcer of the left lower extremity, osteoarthritis, history of renal calculi; requiring urologic intervention and recently diagnosed UTI on October 24, 2023 who presents to [facility] ER with family noting altered mental status. Ms. Nagy is not a fully-reliable historian at this time as information was gathered from chart, medical staff and computer. According to the records she was seen in the ER yesterday and treated with IV Rocephin after being diagnosed with acute cystitis. Her family was supposed to merchandise pickup/receiving associate her Keflex from the pharmacy but did not do so and called EMS instead due to her worsening altered mental status. Her family reported that she was attempting to ambulate with her walker when she urinated while walking across the floor with worsening confusion. There is no report of fever, chills, nausea, vomiting, diarrhea, constipation or significant abdominal pain but she did complain of some back pain earlier and she is obviously encephalopathic with patient communicating with her eyes closed and sometimes tangential responses to questions. In the ER her CT scan of the abdomen pelvis revealed left hydronephrosis with perinephric stranding consistent with suspected pyelonephritis of the Left kidney in the setting of recently diagnosed UTI with failed treatment with IV Rocephin complicated by clinical evidence of acute metabolic encephalopathy and generalized weakness with ambulatory dysfunction and she was then admitted to the general medical floor for ongoing care for stay that is expected to be greater than 48 hours. [facility] Medical History Afib ricci Breast CA Cholecystectomy planned Diabetes Hernia High cholesterol Hypertension Home Medications furosemide 40 mg tablet 40 mg PO BID FLUID RETENTION 01/20/16 [History Last Taken Unknown] glimepiride 2 mg tablet 2 mg PO DAILY DIABETES 01/20/16 [History Last Taken Unknown] metformin 500 mg tablet 500 mg PO BIDCM DIABETES 01/20/16 [History Last Taken Unknown] atorvastatin 40 mg tablet 40 mg PO DAILY CHOLESTEROL 10/24/23 [History Last Taken Unknown] cephalexin 500 mg capsule 500 mg PO TID ANTIBIOTIC 7 days #21 CAPSULES 10/24/23 [Rx Last Taken Unknown] metoprolol tartrate 25 mg tablet 25 mg PO DAILY BLOOD PRESSURE 10/24/23 [History Last Taken Unknown] potassium chloride 10 mEq tablet,extended release (Klor-Con) 10 meq PO BID SUPPLEMENT 10/24/23 [History Last Taken Unknown] warfarin 3 mg tablet 9 mg PO DAILY BLOOD THINNER 10/24/23 [History Last Taken Unknown] ondansetron 4 mg disintegrating tablet 4 mg PO Q8H PRN Nausea 10/25/23 [History Last Taken Unknown] Allergy/AdvReac Type Severity Reaction Status Date / Time diltiazem HCl [From Cardizem] Allergy Rash Verified 10/24/23 19:38 Surgical History H/O lumpectomy H/O: hysterectomy Hx of right mastectomy Social History Smoking Status: Former smoker ROS ROS Narrative Review of systems: General: Patient denies fever or chills. HENT: Denies headache, denies stuffy nose, denies sore throat EYES: Denies changes in vision Resp: Denies cough, denies shortness of breath Cardiac: Denies chest pain GI: Denies abdominal pain, denies changes in bowel, denies nausea or vomiting : Patient recently diagnosed with UTI yesterday as per HPI. Extremity: Patient has chronic lower extremity swelling with chronic venous stasis particularly in the left lower extremity. Musculoskeletal: Feels somewhat generally weak and unwell Neuro: Patient is notably confused but there are no reports of paresthesias or other focal neurologic deficits. Heme: Denies any bleeding or bruising Skin: Denies rashes Psychiatric: No complaints voiced related to uncontrolled depression or anxiety. Endocrine: No polyuria, polydipsia or polyphagia. The rest of the 14 point ROS was negative except for positives in HPI. Vital Signs Vital Signs Vital Signs: 10/25/23 15:34 10/25/23 16:58 Temperature 97.6 F L Temperature Source Temporal Pulse Rate 91 88 Respiratory Rate 16 25 H Blood Pressure 123/58 H 127/86 H Blood Pressure Mean 79 99 Pulse Ox 100 96 Oxygen Delivery Method Room Air Room Air Physical Exam Const alert, no apparent distress and average body habitus Constitutional Narrative: Patient appears unkempt with very poor dentition. General Appearance: cooperative Orientation / Consciousness: confused HEENT normocephalic, head/scalp atraumatic and hearing grossly normal bilaterally HEENT Narrative: Mucous membranes are dry. Eyes PERRL and EOMs intact bilaterally Neck no lymphadenopathy and supple Resp normal respiratory effort, no retractions, no use of accessory muscles and clear to auscultation bilaterally Cardio regular rate and regular rhythm GI normal to inspection, nondistended, normoactive bowel sounds, soft to palpation and non-tender GI Narrative: Patient has a small umbilical hernia which appears to be reducible. Extremity Extremity Narrative: Patient has evidence of chronic venous stasis particularly Left > Right lower extremity. Skin Skin Narrative: Patient has evidence of chronic venous stasis particularly Left > Right lower extremity. Neuro CN's II-XII intact bilaterally, moves all extremities and no focal motor deficits Sensorium / Orientation: awake, alert, oriented to person and oriented to place Speech: speech normal Motor Exam: strength 5/5 throughout Psych affect normal Results Medical Records Data Attestation: I reviewed the patient's medical records Lab / Micro Data Attestation: I reviewed the patient's lab results. Lab results narrative: RUN DATE: 10/25/23 [facility], DEPARTMENT OF LABORATORIES PAGE 1 RUN TIME: 2012 [address] In[address], [place], [place], [id number] PATIENT: DENIZ NAGY LOC: ED U #: [id number] : 1940 AGE/SX: 83/F FACILITY: [facility] ROOM: RE10/24/[address]: Dr. Tylor Guadarrama MD STATUS:DEP ER ED: DIS: ~ SPEC #: [id number] FRIEDA: 10/24/23 STATUS: COMP REQ #: [id number] RECD: 10/24/23-[address]: Dr. Tylor Guadarrama MD ENTERED: 10/24/23-[address]: Dr. James Zavaleta, DO ~ QUERIES: How was Urine Obtained? CRIME ANALYST TO SPECIFY Test Result Flag Adult Reference Range COMPLETE UA COLOR Yellow Yellow Urine Clarity Cloudy Clear GLUCOSE, UR Normal Normal mg/dl BILIRUBIN URINE Negative Negative mg/dL KETONE UR Negative Negative mg/dl SP.GR. DIPSTX 1.010 1.002-1.030 pH UR 6.5 5.0 - 8.0 PROT DIPSTX 100 H Negative mg/dl UROBILI 1 H Normal mg/dl NITRITE Positive H Negative OCCULT BLOOD-UR 150 H Negative /ul LEUK ESTERASE 500 H Negative /ul WBC >100 SEEN 0-5 /hpf RBC 0 SEEN 0-5 /hpf EPI,SQUAMOUS 0-5 SEEN 5-10 /hpf BACTERIA 2+ None Seen /hpf MUCUS 0 SEEN <or=2+ /hpf 10/25/23 18:10 10/25/23 16:15 Labs: Laboratory Results - last 24 hr 10/25/23 16:15: WBC Cancelled, Corrected WBC Cancelled, RBC Cancelled, Hgb Cancelled, Hct Cancelled, MCV Cancelled, MCH Cancelled, MCHC Cancelled, RDW Std Deviation Cancelled, RDW Coeff of Maximino Cancelled, Plt Count Cancelled, MPV Cancelled, Immature Gran % (Auto) Cancelled, Neut % (Auto) Cancelled, Lymph % (Auto) Cancelled, [place] % (Auto) Cancelled, Eos % (Auto) Cancelled, Baso % (Auto) Cancelled, Absolute Neuts (auto) Cancelled, Absolute Lymphs (auto) Cancelled, Total Counted Cancelled, Neutrophils % (Manual) Cancelled, Band Neutrophils % Cancelled, Lymphocytes % (Manual) Cancelled, Monocytes % (Manual) Cancelled, Eosinophils % (Manual) Cancelled, Basophils % (Manual) Cancelled, Metamyelocytes % Cancelled, Myelocytes % Cancelled, Promyelocytes % Cancelled, Blast Cells % Cancelled, Plasma Cell % (Manual) Cancelled, Other Cells % Cancelled, Nucleated RBC % Cancelled, Nucleated RBCs/100 WBC Cancelled, Differential Comment Cancelled, Diff Path Review Cancelled, Hypersegmented Neuts Cancelled, Atypical Lymphocytes Cancelled, Reactive Lymphocytes Cancelled, Smudge Cells Cancelled, Toxic Granulation Cancelled, Toxic Vacuolation Cancelled, Dohle Bodies Cancelled, Anabel Rods Cancelled, Platelet Estimate Cancelled, Plt Morphology Comment Cancelled, RBC Morphology Cancelled 10/25/23 16:15: RBC Morphology Cancelled, Polychromasia Cancelled, Hypochromasia Cancelled, Poikilocytosis Cancelled, Basophilic Stippling Cancelled, Anisocytosis Cancelled, Microcytosis Cancelled, Macrocytosis Cancelled, Spherocytes Cancelled, Sickle Cells Cancelled, Target Cells Cancelled, Tear Drop Cells Cancelled, Ovalocytes Cancelled, Stomatocytes Cancelled, Helms-Leslie Bodies Cancelled, [place] Cells Cancelled, Bite Cells Cancelled, Crenated Cell Cancelled, Acanthocytes (Spur) Cancelled, Rouleaux Cancelled, Schistocytes Cancelled, Sodium 139, Potassium 3.8, Chloride 104, Carbon Dioxide 27.0, Anion Gap 8, BUN 26 H, Creatinine 1.33 H, Est GFR (MDRD) Af Amer 49 L, Est GFR (MDRD) Non-Af 41 L, BUN/Creatinine Ratio 19.5, Glucose 171 H, Calcium 9.9, Total Bilirubin 0.70, Direct Bilirubin 0.30, AST 45 H, ALT 25, Alkaline Phosphatase 81, Total Protein 7.3, Albumin 3.1 L, Globulin 4.2, Lipase 11 L 10/25/23 18:10: WBC 6.4, RBC 3.77 L, Hgb 11.3 L, Hct 34.9 L, MCV 92.6, MCH 30.0, MCHC 32.4, RDW Std Deviation 48.5 H, RDW Coeff of Maximino 14.3, Plt Count 52 L, MPV 11.9, Immature Gran % (Auto) 0.500, Neut % (Auto) 85.0 H, Lymph % (Auto) 7.2 L, [place] % (Auto) 7.0, Eos % (Auto) 0.0, Baso % (Auto) 0.3, Absolute Neuts (auto) 5.4, Absolute Lymphs (auto) 0.46 L, Nucleated RBC % 0, Differential Comment SCANNED, Ammonia 25.0 Imagaing Radiology Impression Abdomen/Pelvis CT 10/25/23 16:48 IMPRESSION: Moderately distended gallbladder with cholelithiasis. Mild prominence of the extrahepatic biliary system. Normal spleen. Normal pancreas. Right adrenal lesion. Left renal cyst . There is left hydronephrosis with perinephric stranding. Infectious etiology cannot be excluded. There is a fatty hernia superior to the left inguinal region. There is a fatty umbilical hernia. Electronically Signed: Jon More DO at 17:47 EST Reading Location ID and State: [facility] [place] Tel [phone], Service support , Assessment & Plan Assessment/Plan (1) Acute UTI: (2) Metabolic encephalopathy: (3) Generalized weakness: (4) Pyelonephritis of left kidney: (5) Thrombocytopenia: PLAN: Plan 1. 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 Continue broad-spectrum antibiotics with IV Zosyn with apparent failure of Rocephin. Give Tylenol as needed pain or fever. Finally, we will check renal ultrasound in the a.m. to evaluate for possible renal calculus, ureteral stricture or mass not evident on CT. 2. Metabolic encephalopathy arising from #1 - Continue supportive care and monitor for improvement. Check TSH. 3. Generalized weakness with ambulatory dysfunction attributable to #1 & #2 - PT/OT and case management consult and treat this admission with help appreciated in advance. 4. Severe Chronic Thrombocytopenia of 52 present on admission; down from 90 yesterday adding to the pathology of #1 - #3 - I spoke with the pharmacist about this patient and we only have heparin and heparinoids available for bridging which are relatively contraindicated at this time. Check daily CBC to track trend and consider transfusion if platelet count drops < 20. 5. History of renal calculi; requiring urologic intervention - Noted. Renal ultrasound pending. 6. Essential hypertension - Hold scheduled antihypertensives until infection outlined above is neutralized. Give IV hydralazine as needed for systolic blood pressure greater than 160 mmHg. 7. Hyperlipidemia - Resume statin as previous. 8. Diabetes mellitus type 2; of unknown control - ADA diet. Fingerstick blood sugars before every meal and at bedtime + scale insulin. Check hemoglobin A1c to objectively evaluate quality of diabetic control. 9. History of atrial fibrillation; on Coumadin - Continue as previous and check daily PT/INR to maintain level between 2-3. 10. History of breast cancer; status post Right mastectomy - Noted. 11. History of hysterectomy - Noted. 12. Chronic lower extremity edema with venous insufficiency and venous ulcer of the left lower extremity - Noted. Stable at this time. 13. Osteoarthritis - Give Tylenol prn. 14. DVT prophylaxis - Patient on Coumadin which will be continued but with an INR of 1.1. Due to #4 she is a poor candidate for bridging with heparin or heparinoids. Total time: Approximately 55 minutes. Charges/Coding Visit Charges Inpatient E&M: 10473 Init Hosp L2
[2023-10-25 20:00] VITALS: BP 118/92; RESP 24; O2SAT 95
--- NOTE | 2023-10-25 20:05 | US_ITS ---
EXAM: US RETROPERITONEAL LIMITED, RENAL CLINICAL INDICATION: Left pyelonephritis w/ hydronephrosis on CT.?stone TECHNIQUE: Limited grayscale and color Doppler sonographic evaluation of the retroperitoneum was performed. COMPARISON: CT October 25, 2023 5:09 PM, on review there is distention of the gallbladder with multiple stones in the proximal body, right adrenal enlargement with mildly heterogeneous appearance, mild-moderate left hydronephrosis and slight peripheral enhancement of the dilated proximal left collecting system, small cyst at the left upper pole, mild decreased enhancement of left kidney compared to the right, especially at the upper cortex and suspected pyelonephritis. No urinary tract stones seen on review of the CT. FINDINGS: RIGHT KIDNEY: Isoechoic and borderline thin renal cortex, 1 cm thickness of the cortex. Normal renal size, 10.3 cm x 4.8 cm x 4.9 cm. No hydronephrosis. 9 mm right renal pelvis. No shadowing calculus. 1.3 cm cyst was measured in the lower kidney but I believe this is a hypoechoic pyramid, there is no significant cyst on CT. No perinephric collection is demonstrated. LEFT KIDNEY: 15 cm x 5.7 cm x 5.3 cm, mildly enlarged compared to the right. Moderate hydronephrosis, left renal pelvis roughly 2.5 cm, with no visible sludge ball or stone. Mildly dilated calyces. Renal cortex appears thickened or swollen, 2 cm thickness. On review of the CT there is some subtle patchy decreased enhancement superimposed on the mild diffuse decreased enhancement. No shadowing calculus. No focal lesion. No perinephric collection is demonstrated. BLADDER: 11.5 cm x 11.5 cm x 8.4 cm, calculated volume 470 cc, normal 2.8 mm wall. No obvious intraluminal debris. Neither ureteral jet is well seen. OTHER: Prominently distended gallbladder with some floating nondependent stones, 4.9 cm AP, not fully evaluated but no obvious wall thickening. US/Kidney and Bladder IMPRESSION: Moderate left hydronephrosis. Enlarged left kidney compared to the right with thickened measurement of the cortex. There appears to be cortical swelling and subtle multifocal patchy decreased enhancement consistent with pyelonephritis on review of the CT. No visible stones or sludge ball on CT or ultrasound. Prominently distended urinary bladder, please correlate with whether the patient can void. Prominently distended gallbladder with stones is partially included. Electronically Signed: Mackenzie Proctor MD at 8:38 EST ,
--- NOTE | 2023-10-25 20:28 | VDLE_ITS ---
Reason For Study: BLE Swelling RIGHT LEFT GSV is normal. GSV is normal. CFV is compressible, spontaneous, phasic, CFV is compressible, spontaneous, phasic, competent and demonstrates normal competent, and demonstrates normal augmentation. augmentation. FV is compressible, spontaneous, phasic, FV is compressible, spontaneous, phasic, competent and demonstrates normal competent and demonstrates normal augmentation. augmentation. POP V is compressible, spontaneous, phasic, POP V is compressible, spontaneous, phasic, competent and demonstrates normal competent and demonstrates normal augmentation. augmentation. T/P Trunk is compressible. T/P Trunk is compressible. PTV is compressible. PTV is compressible. RT PerV is compressible. LT PerV is compressible. Calf vessels visualized in segments due to Calf vessels visualized in segments due to swelling and patient positioning. swelling and patient positioning. Procedure Exam performed portable in patient room. This is a venous duplex using B-mode, color flow and spectral Doppler. The study was technically difficult due to patient positioning, body habitus and intolerance to compressions. A preliminary report was called and/or faxed to [employer] diesel retrofit installer. VL/Venous Duplex US - Andi Extrem Interpretation Summary Deep veins of the bilateral lower extremities are patent and compressible segme ntally. There is no evidence of bilateral lower extremity deep vein thrombosis. The bilateral great saphenous veins appear patent and compressible segmentally. Limited below knee bilateral due to edema and patient positioning Ordering Physician: Maxx Humphreys Performed By: Dominick Valentine, RVT
[2023-10-25 20:43] VITALS: BP 153/66
[2023-10-25] MEDS: Piperacil/Tazobactam 3.375 GM in 0.9% Normal Saline (50mL MB+) 50 ML IV (20:48)
[2023-10-25 21:36] VITALS: BMI 41.7
--- NOTE | 2023-10-25 22:50 | NURSING ---
D-dimer results reported from lab via phone. Results communicated to primary nurse.
[2023-10-25 22:51] LABS: D-Dimer Quantitative (DVT/PE) 4.65 FEU/ug/m (0.27-0.49); International Normalized Ratio 1.2; Prothrombin Time (Protime)PT. 15.4 SECONDS (11.7-14.9)
[2023-10-26] MEDS: 0.9% Normal Saline (1000mL) 1,000 ML 125 ML IV ×3 (01:57→20:17)
[2023-10-26 03:00] VITALS: BP 149/81; PULSE 96; RESP 18; TEMP 36.8; O2SAT 96
[2023-10-26] MEDS: Piperacil/Tazobactam 3.375 GM in 0.9% Normal Saline (50mL MB+) 50 ML IV (05:10)
[2023-10-26] MEDS: Menthol/Lanolin/Calamine/Znox 113 GM Tube 1 APPLIC TOPICAL ×3 (05:12→20:17)
[2023-10-26] MEDS: Miconazole Nitrate 43 GM Bottle 1 APPLIC TOPICAL ×3 (05:13→20:17)
[2023-10-26 06:00] VITALS: BMI 41.9
[2023-10-26 06:47] LABS: Bedside Glucose 212 mg/dL (74-106)
[2023-10-26] MEDS: Insulin Lispro 100 UNIT/ML INSULN.PEN SC ×3 (06:50→16:15)
[2023-10-26 07:57] LABS: Absolute Lymphocyte Count 0.41 X10^3/uL (0.83-4.51); Absolute Neutrophil Count 4.7 X10^3/uL (2.0-7.7); Basophil# 0.02 X10^3/uL; Basophil% 0.4 % (0-1); Hematocrit 36.1 % (37-47); Hemoglobin 11.8 g/dL (12.0-15.0); Lymphocyte # 0.41 X10^3/ul (0.83-4.51); Lymphocyte % 7.3 % (19-41); Mean Corp Hgb Conc 32.7 g/dL (32-36); Mean Corpuscular Hgb 29.9 pg (27.0-32.0); Mean Corpuscular Volume 91.4 fL (81-99); Mean Platelet Vol. 13.4 fl (6.2-12.0); Monocyte# 0.42 X10^3/uL; Monocyte% 7.5 % (0-10); NRBC Flagged by Analyzer 0 % (0-5); Neutrophil % 84.3 % (47-70); POSITIVE COUNT YES; POSITIVE DIFFERENTIAL YES; POSITIVE MORPHOLOGY YES; Platelet Count 45 K/mm3 (150-450); RBC Distribution Width CV 14.2 % (11.6-14.6); RBC Distribution Width SD 47.7 fl (35.1-43.9); Red Blood Count 3.95 M/mm3 (4.2-5.4); White Blood Count 5.6 K/mm3 (4.4-11.0)
[2023-10-26 08:12] LABS: Differential Indicated SCAN CRITERIA MET; International Normalized Ratio 1.2; Prothrombin Time (Protime)PT. 15.3 SECONDS (11.7-14.9)
[2023-10-26 08:54] LABS: ALB/GLOB Ratio 0.7 RATIO (0.9-2.4); AST(SGOT) 34 U/L (15-37); Alanine Aminotransfer ALT/SGPT 21 U/L (13-56); Albumin, Serum 2.5 g/dL (3.2-5.0); Alkaline Phosphatase 75 U/L (45-117); Anion Gap 9 (5-15); BUN 23 mg/dL (7-18); Chloride 110 mmol/L (98-107); Creatinine, Serum 1.15 mg/dL (0.55-1.02); EST Glomerular Filtration Rate 48 mL/min (>60); Est Glom Filt Rate - Afr Amer 58 mL/min (>60); Estimated Creatinine Clearance 38.65 ml/min; Globulin 3.7 g/dL (2.2-4.2); Glucose 201 mg/dL (74-106); Phosphorus 2.5 mg/dL (2.5-4.9); Potassium 3.3 mmol/L (3.5-5.1); Protein, Total 6.2 g/dL (6.4-8.2); Sodium Level 141 mmol/L (136-145)
[2023-10-26] MEDS: Ascorbic Acid 500 MG Tablet 1000 MG PO ×2 (09:05→16:19)
[2023-10-26] MEDS: Zinc Sulfate 50 mg zinc (220 mg) ORAL capsule PO (09:11)
[2023-10-26] MEDS: Cholecalciferol (Vit D3) 125 MCG CAPSULE (5,000 UNITS) PO (09:11)
[2023-10-26 09:20] VITALS: BP 149/83; PULSE 100; RESP 18; TEMP 36.8; O2SAT 96
--- NOTE | 2023-10-26 09:35 | WOUNDNOTE ---
skin photo: right lower leg
--- NOTE | 2023-10-26 09:36 | WOUNDNOTE ---
skin photo: left lower leg
--- NOTE | 2023-10-26 09:53 | PN.HOSP_ITS ---
Subjective Subjective Doing well, still appears to be a little confused Objective Data Objective Data Vital Signs: Vital Signs Temp Pulse Resp BP Pulse Ox O2 Del Method 98.2 F 96 18 149/81 H 96 Room Air 10/26/23 03:00 10/26/23 03:00 10/26/23 03:00 10/26/23 03:00 10/26/23 03:00 10/26/23 08:23 Oxygen Delivery Method Room Air Weight: 213 lb 10.047 oz Body Mass Index (BMI) 41.9 Intake & Output: Intake and Output for Last 24 Hours 10/25/23 10/26/23 10/27/23 03:59 03:59 03:59 Intake Total 1250 / 1250 995.84 / 995.84 Output Total 500 / 500 Balance 1250 / 1250 495.84 / 495.84 Lab / Micro Data 10/26/23 07:00 10/26/23 07:00 Labs: Laboratory Results - last 24 hr 10/25/23 16:15: WBC Cancelled, Corrected WBC Cancelled, RBC Cancelled, Hgb Cancelled, Hct Cancelled, MCV Cancelled, MCH Cancelled, MCHC Cancelled, RDW Std Deviation Cancelled, RDW Coeff of Maximino Cancelled, Plt Count Cancelled, MPV Cancelled, Immature Gran % (Auto) Cancelled, Neut % (Auto) Cancelled, Lymph % (Auto) Cancelled, [place] % (Auto) Cancelled, Eos % (Auto) Cancelled, Baso % (Auto) Cancelled, Absolute Neuts (auto) Cancelled, Absolute Lymphs (auto) Cancelled, Total Counted Cancelled, Neutrophils % (Manual) Cancelled, Band Neutrophils % Cancelled, Lymphocytes % (Manual) Cancelled, Monocytes % (Manual) Cancelled, Eosinophils % (Manual) Cancelled, Basophils % (Manual) Cancelled, Metamyelocytes % Cancelled, Myelocytes % Cancelled, Promyelocytes % Cancelled, Blast Cells % Cancelled, Plasma Cell % (Manual) Cancelled, Other Cells % Cancelled, Nucleated RBC % Cancelled, Nucleated RBCs/100 WBC Cancelled, Differential Comment Cancelled, Diff Path Review Cancelled, Hypersegmented Neuts Cancelled, Atypical Lymphocytes Cancelled, Reactive Lymphocytes Cancelled, Smudge Cells Cancelled, Toxic Granulation Cancelled, Toxic Vacuolation Cancelled, Dohle Bodies Cancelled, Anabel Rods Cancelled, Platelet Estimate Cancelled, Plt Morphology Comment Cancelled, RBC Morphology Cancelled 10/25/23 16:15: RBC Morphology Cancelled, Polychromasia Cancelled, Hypochromasia Cancelled, Poikilocytosis Cancelled, Basophilic Stippling Cancelled, Anisocytosis Cancelled, Microcytosis Cancelled, Macrocytosis Cancelled, Spherocytes Cancelled, Sickle Cells Cancelled, Target Cells Cancelled, Tear Drop Cells Cancelled, Ovalocytes Cancelled, Stomatocytes Cancelled, Helms-Laketon Bodies Cancelled, Snowflake Cells Cancelled, Bite Cells Cancelled, Crenated Cell Cancelled, Acanthocytes (Spur) Cancelled, Rouleaux Cancelled, Schistocytes Cancelled, Sodium 139, Potassium 3.8, Chloride 104, Carbon Dioxide 27.0, Anion Gap 8, BUN 26 H, Creatinine 1.33 H, Est GFR (MDRD) Af Amer 49 L, Est GFR (MDRD) Non-Af 41 L, BUN/Creatinine Ratio 19.5, Glucose 171 H, Calcium 9.9, Total Bilirubin 0.70, Direct Bilirubin 0.30, AST 45 H, ALT 25, Alkaline Phosphatase 81, Total Protein 7.3, Albumin 3.1 L, Globulin 4.2, Lipase 11 L 10/25/23 18:10: WBC 6.4, RBC 3.77 L, Hgb 11.3 L, Hct 34.9 L, MCV 92.6, MCH 30.0, MCHC 32.4, RDW Std Deviation 48.5 H, RDW Coeff of Maximino 14.3, Plt Count 52 L, MPV 11.9, Immature Gran % (Auto) 0.500, Neut % (Auto) 85.0 H, Lymph % (Auto) 7.2 L, Edgefield % (Auto) 7.0, Eos % (Auto) 0.0, Baso % (Auto) 0.3, Absolute Neuts (auto) 5.4, Absolute Lymphs (auto) 0.46 L, Nucleated RBC % 0, Differential Comment SCANNED, Ammonia 25.0 10/25/23 21:50: PT 15.4 H, INR 1.2, D-Dimer Quant (PE/DVT) 4.65 H* 10/26/23 06:27: POC Glucose 212 H 10/26/23 07:00: WBC 5.6, RBC 3.95 L, Hgb 11.8 L, Hct 36.1 L, MCV 91.4, MCH 29.9, MCHC 32.7, RDW Std Deviation 47.7 H, RDW Coeff of Maximino 14.2, Plt Count 45 L*, MPV 13.4 H, Immature Gran % (Auto) 0.500, Neut % (Auto) 84.3 H, Lymph % (Auto) 7.3 L , Edgefield % (Auto) 7.5, Eos % (Auto) 0.0, Baso % (Auto) 0.4, Absolute Neuts (auto) 4.7, Absolute Lymphs (auto) 0.41 L, Nucleated RBC % 0, PT 15.3 H, INR 1.2, Sodium 141, Potassium 3.3 L, Chloride 110 H, Carbon Dioxide 22.0, Anion Gap 9, BUN 23 H, Creatinine 1.15 H, Estim Creat Clear Calc 38.65, Est GFR (MDRD) Af Amer 58 L, Est GFR (MDRD) Non-Af 48 L, BUN/Creatinine Ratio 20.0, Glucose 201 H, Calcium 9.0, Phosphorus 2.5, Magnesium 2.0, Total Bilirubin 0.60, AST 34, ALT 21, Alkaline Phosphatase 75, Total Protein 6.2 L, Albumin 2.5 L, Globulin 3.7, Albumin/Globulin Ratio 0.7 L, TSH 1.90 Radiography Diagnostic Testing: Radiology Impression Abdomen/Pelvis CT 10/25/23 16:48 IMPRESSION: Moderately distended gallbladder with cholelithiasis. Mild prominence of the extrahepatic biliary system. Normal spleen. Normal pancreas. Right adrenal lesion. Left renal cyst . There is left hydronephrosis with perinephric stranding. Infectious etiology cannot be excluded. There is a fatty hernia superior to the left inguinal region. There is a fatty umbilical hernia. Electronically Signed: Jon More DO at 17:47 EST Reading Location ID and State: [facility] / [place] Tel [phone], Service support , Renal Ultrasound 10/25/23 20:05 IMPRESSION: Moderate left hydronephrosis. Enlarged left kidney compared to the right with thickened measurement of the cortex. There appears to be cortical swelling and subtle multifocal patchy decreased enhancement consistent with pyelonephritis on review of the CT. No visible stones or sludge ball on CT or ultrasound. Prominently distended urinary bladder, please correlate with whether the patient can void. Prominently distended gallbladder with stones is partially included. Electronically Signed: Mackenzie Proctor MD at 8:38 EST Reading Location ID and State: [facility] / [place] Tel , Service support , Physical Exam Narrative General: Alert, confused, cooperative, No apparent distress HEENT: Atraumatic, PERRLA, EOMI, Normocephalic Oral: Moist Mucosa, poor dentition Neck: Supple, No JVD Lungs: Diminished, Normal air movement, No rhonchi, No wheeze, No rales Cardiovascular: Regular rate, Regular Rhythm, Normal S1, Normal S2, No murmurs Abdomen: Soft, Non Tender, Non-Distended, No Hepato-splenomegaly Extremities: No edema, Capillary Refill Less than 3 Seconds Skin: No rashes, No breakdown, chronic venous stasis changes Musculoskeletal: No Tenderness to Palpation of Joints or Extremities Neurological: No focal neurological deficit, Motor Exam 5/5 strength throughout, Sensory exam intact to light touch and pain Psych/Mental Status: Normal Affect, Appropriate Assessment & Plan Assessment/Plan (1) Acute UTI: (2) Metabolic encephalopathy: (3) Generalized weakness: (4) Pyelonephritis of left kidney: (5) Thrombocytopenia: PLAN: Plan 1. Metabolic encephalopathy secondary to UTI due to Klebsiella with generalized weakness ? Urine cultures from 116 are finalized a Klebsiella, it is resistant to Keflex ? PT/OT for discharge planning ? Per report she presented to the ER and was discharged on antibiotics however they were never picked up or started as an outpatient and family brought her back in because of confusion 2. HTN/HLD/A-fib ? Blood pressure stable ? Can resume her home blood pressure medications, will monitor make adjustments as necessary ? We will hold her Lasix ? Continue with statin ? Continue with Coumadin and monitor INR 3. DM2 ? Hold her home medications ? Sliding scale insulin ? Accu-Cheks ACHS ? We will monitor make adjustments as necessary 4. Chronic thrombocytopenia ? Continue outpatient monitoring DVT: Coumadin Capacity Legal Information Assurance Engineer Reflex Medical hold order details:: IF a medical hold is selected below, a suggested order for a MEDICAL HOLD will reflex upon signing the document. Next of kin: [place] law dictates a PRIORITY LIST for identifying legal decision-maker/legal next of kin in the following order (LNOK): 1st: The patient?s legal guardian, if any 2nd: The patient's spouse (if status is questionable, consult Risk Management) 3rd: The patient?s adult child(jessie) (majority, if multiple children) 4th: The patient?s parents 5th: The patient?s adult siblings (majority, if multiple children siblings) Charges/Coding Visit Charges Inpatient E&M: 77993 Subs Hosp L2
--- NOTE | 2023-10-26 11:00 | CASEMGMT ---
ENRICO LEES Assessment: Face to Face with pt for initial transition planning/care coordination assessment. ENRICO LEES introduced self and role at [facility], pt voices understanding and consents to assessment. Pt is A&O x2, did not know the year, and answers all questions appropriately at this time. Pt sitting up in chair in no distress with son and his girlfriend at bedside. Pt frequently looks at her son for answers to assessment questions. Care providers, pharmacy, and demographics verified/updated. Admitting Dx:acute cystitis PCP:Waqar Specialists:Pt sees the [facility] every Monday in [place] Preferred Pharmacy:[facility] Insurance:AARP MCR Adv Prescription Benefit: yes LNOK:Casey Lora, son- He provided LW/DPOA paperwork indicating himself as DPOA. ENRICO LEES made copies and filed in pt chart and returned originals to son. Living Arrangements: Pt lives with son in a 2 story home with 1 rail to enter. Pt only uses the main level. Pt reports she is I in all ADL's and IADL's except for getting groceries. Pt denies concerns at home. Transportation: Pt does not drive. Pt son transports her to medical appts. DME:raised toilet seat, shower chair, cane, FWW, lift chair, BGM with sufficient strips and lancets HHC/SNF: Pt has had HHC in the past, cannot recall name of agency. Pt has been to [facility] in [place] also. Pt states if it is recommended that she need SNF, she would be willing to get therapy prior to returning home. Pt states no further concerns/needs. CM to follow. Advised pt to ask CM if any further question/concerns/needs arise, voices understanding. Pt Goal:Unable to state Plan: TBD, pending therapy and course of hospitalization- likely SNF After assessment in room, pt son and girlfriend asked to meet with ENRICO LEES privately. They state pt has been slowly declining over the last 3 weeks and that she cannot do all of the items she stated she could. They state they are unable to care for her any longer at home and would like pt to be placed in a SNF. They report pt mental status has decreased and this is not her baseline. Updated SW on this information.
[2023-10-26] MEDS: 0.9% Saline Lock 10 ML Syringe IV (11:35)
[2023-10-26] MEDS: Ceftriaxone 1 GM/50 ML BAG IV (11:35)
[2023-10-26 11:39] VITALS: PULSE 100
[2023-10-26] MEDS: Metoprolol Tartrate 25 MG Tablet PO (11:39)
[2023-10-26 12:15] LABS: Bedside Glucose 222 mg/dL (74-106)
--- NOTE | 2023-10-26 12:56 | CASEMGMT ---
Discharge Planning A list of?SNF providers including quality and resource use data and consistent with the patient's preferred geographic region, medical needs, and insurance network was created in CarePort Guide.? This list was provided to the SW. Fiorella Cade Discharge Planning Asst.
[2023-10-26] MEDS: Potassium Chloride Oral Soln 20 MEQ/15 ML UDC 40 MEQ PO (14:32)
[2023-10-26 14:39] VITALS: BP 123/55; PULSE 78; RESP 18; TEMP 36.6; O2SAT 96
--- NOTE | 2023-10-26 14:39 | CASEMGMT ---
Addendum entered by Briana Epperson 10/26/23 14:45: A list of SNF providers including quality and resource use data and consistent with the patient?s preferred geographic region, medical needs, and insurance network from the [facility] Guide were left in the patient's room in the event [facility] is unable to accept. CHANO Bejarano Original Note: Social Work SW received referral from [facility] that pt's family requesting SNF placement. AYSE spoke with pts son Casey on the phone. SW reviewed therapy notes and pt is currently mod Ax2 for transfers and ambulation of 1 ft. Casey denies need for SNF list as pt has been to [facility] in the past and he would like this for pt at this time. AYSE met with pt and introduced self and role of SW. SW spoke with pt regarding dc plan and pt is agreeable to placement at [facility]. DC recruitment and outreach assistant updated and to send referral. Plan: [facility], pending acceptance and precert CHANO Bejarano
--- NOTE | 2023-10-26 15:12 | CHAPLAIN ---
Type of Pastoral Visit _x__ Initial Visit ___ Follow-up Visit ___ On-call Visit ___ General Patient Visit ___ Spiritual Assessment ___ Family Conference ___ Bereavement ___ Rapid Response ___ Code Blue ___ Other (describe below) Pastoral Care Referral From _x__ Patient ___ Family ___ Nurse ___ Physician ___ Chip Person ___ Core Sucker ___ Other (describe below) Sacrament/Intervention ___ Active listening ___ Anointing ___ Sabianism ___ Bereavement ___ Communion ___ Shirley exploration ___ _x__ Life review ___ Prayer ___ Reconciliation ___ Sacrament of Sick _x__ Supportive presence ___ Wedding ___ Other (describe below) Pastoral Comments patient is eating and is very focused on that; pt does answer simple questions and states that she cannot think of anything that she needs; son is in the room and is more talkative and explains situation for pt and her needs; offer of support reiterated; no other needs noted
--- NOTE | 2023-10-26 16:31 | CASEMGMT ---
Addendum entered by Fiorella Cade 10/27/23 10:17: Patient has been accepted by [facility] and precert will be submitted. Fiorella Cade, Discharge Planning Asst. Original Note: Discharge Planning Referral sent to [facility] via CarePort. Fiorella Cade, Discharge Planning Asst.
[2023-10-26 17:26] LABS: Bedside Glucose 192 mg/dL (74-106)
[2023-10-26] MEDS: Atorvastatin Calcium 40 MG Tablet PO (20:17)
[2023-10-26 20:34] VITALS: BP 129/56; PULSE 82; RESP 18; TEMP 36.7; O2SAT 96
[2023-10-27 01:24] LABS: Bedside Glucose 143 mg/dL (74-106)
[2023-10-27] MEDS: 0.9% Normal Saline (1000mL) 1,000 ML 125 ML IV (03:18)
[2023-10-27] MEDS: Acetaminophen 325 MG Tablet 650 MG PO ×2 (04:23→23:49)
[2023-10-27] MEDS: Miconazole Nitrate 43 GM Bottle 1 APPLIC TOPICAL ×3 (04:24→23:51)
[2023-10-27] MEDS: Menthol/Lanolin/Calamine/Znox 113 GM Tube 1 APPLIC TOPICAL ×3 (04:24→23:50)
[2023-10-27 04:30] VITALS: BP 133/58; PULSE 80; RESP 18; TEMP 36.9; O2SAT 94
[2023-10-27 06:26] LABS: Absolute Lymphocyte Count 0.55 X10^3/uL (0.83-4.51); Absolute Neutrophil Count 3.4 X10^3/uL (2.0-7.7); Basophil# 0.02 X10^3/uL; Basophil% 0.4 % (0-1); Eosinophil# 0.06 X10^3/uL; Eosinophils% 1.3 % (0-5); Hematocrit 30.5 % (37-47); Hemoglobin 9.8 g/dL (12.0-15.0); Lymphocyte # 0.55 X10^3/ul (0.83-4.51); Lymphocyte % 12.3 % (19-41); Mean Corp Hgb Conc 32.1 g/dL (32-36); Mean Corpuscular Hgb 29.7 pg (27.0-32.0); Mean Corpuscular Volume 92.4 fL (81-99); Mean Platelet Vol. 12.6 fl (6.2-12.0); Monocyte# 0.42 X10^3/uL; Monocyte% 9.4 % (0-10); NRBC Flagged by Analyzer 0 % (0-5); Neutrophil # 3.39 X10^3/uL (2.7-7.7); Neutrophil % 76.2 % (47-70); POSITIVE COUNT YES; POSITIVE DIFFERENTIAL YES; RBC Distribution Width CV 14.4 % (11.6-14.6); RBC Distribution Width SD 48.8 fl (35.1-43.9); White Blood Count 4.5 K/mm3 (4.4-11.0)
[2023-10-27 06:30] LABS: Differential Indicated SCAN CRITERIA MET; International Normalized Ratio 1.9; Platelet Count 45 K/mm3 (150-450); Prothrombin Time (Protime)PT. 21.5 SECONDS (11.7-14.9)
[2023-10-27] MEDS: Insulin Lispro 100 UNIT/ML INSULN.PEN SC ×4 (06:41→23:52)
[2023-10-27 06:45] LABS: Bedside Glucose 160 mg/dL (74-106)
[2023-10-27 06:49] LABS: Anion Gap 5 (5-15); BUN 23 mg/dL (7-18); BUN/Creat Ratio 22.3 RATIO (10-20); Calcium,Total 8.8 mg/dL (8.5-10.1); Chloride 114 mmol/L (98-107); Creatinine, Serum 1.03 mg/dL (0.55-1.02); EST Glomerular Filtration Rate 54 mL/min (>60); Est Glom Filt Rate - Afr Amer 66 mL/min (>60); Estimated Creatinine Clearance 43.16 ml/min; Glucose 183 mg/dL (74-106); Potassium 3.4 mmol/L (3.5-5.1); Sodium Level 142 mmol/L (136-145)
[2023-10-27 06:52] LABS: Differential Comment SCANNED
--- NOTE | 2023-10-27 08:33 | WOUNDNOTE ---
In to reassess bilateral lower legs. removed the CHRISTOPHER wraps and dressings from bilateral lower legs. no drainage noted. washed legs with soap and water. pat dry. applied aloe vesta and wrapped with kerlix and CHRISTOPHER wraps from the base of the toes to just below the knees. pt tolerated well.
[2023-10-27 08:54] VITALS: BP 133/59; PULSE 68; RESP 16; TEMP 36.8; O2SAT 98
[2023-10-27] MEDS: Ascorbic Acid 500 MG Tablet 1000 MG PO ×2 (09:02→16:59)
[2023-10-27] MEDS: Potassium Chloride Oral Tablet 20 MEQ 40 MEQ PO (09:02)
--- NOTE | 2023-10-27 10:31 | PCM.PN.HOSP ---
Subjective Subjective Doing well, no issues overnight. Much more alert and oriented today Objective Data Objective Data Vital Signs: Vital Signs Temp Pulse Resp BP Pulse Ox O2 Del Method 98.3 F 68 16 133/59 H 98 Room Air 10/27/23 08:54 10/27/23 08:54 10/27/23 08:54 10/27/23 08:54 10/27/23 08:54 10/27/23 08:54 Oxygen Delivery Method Room Air Weight: 213 lb 10.047 oz Body Mass Index (BMI) 41.9 Intake & Output: Intake and Output for Last 24 Hours 10/26/23 10/27/23 10/28/23 03:59 03:59 03:59 Intake Total 1250 / 1250 3531.25 / 3531.25 Output Total 900 / 900 Balance 1250 / 1250 2631.25 / 2631.25 Lab / Micro Data 10/27/23 05:30 10/27/23 05:30 Labs: Laboratory Results - last 24 hr 10/26/23 11:47: POC Glucose 222 H 10/26/23 16:13: POC Glucose 192 H 10/26/23 20:32: POC Glucose 143 H 10/27/23 05:30: WBC 4.5, RBC 3.30 L, Hgb 9.8 L, Hct 30.5 L, MCV 92.4, MCH 29.7, MCHC 32.1, RDW Std Deviation 48.8 H, RDW Coeff of Maximino 14.4, Plt Count 45 L*, MPV 12.6 H, Immature Gran % (Auto) 0.400, Neut % (Auto) 76.2 H, Lymph % (Auto) 12.3 L, Andrews % (Auto) 9.4, Eos % (Auto) 1.3, Baso % (Auto) 0.4, Absolute Neuts (auto) 3.4, Absolute Lymphs (auto) 0.55 L, Nucleated RBC % 0, Differential Comment SCANNED, Diff Path Review February foll, PT 21.5 H, INR 1.9, Sodium 142, Potassium 3.4 L, Chloride 114 H, Carbon Dioxide 23.0, Anion Gap 5, BUN 23 H, Creatinine 1.03 H, Estim Creat Clear Calc 43.16, Est GFR (MDRD) Af Amer 66, Est GFR (MDRD) Non-Af 54 L, BUN/Creatinine Ratio 22.3 H, Glucose 183 H, Calcium 8.8 10/27/23 06:27: POC Glucose 160 H Micro: Microbiology 10/26/23 14:24 Stool Enteric Bacteriology - Final 10/26/23 14:24 Stool Clostridioides difficile (PCR) - Final Radiography Diagnostic Testing: Radiology Impression Venous Doppler Study 10/25/23 20:28 Interpretation Summary Deep veins of the bilateral lower extremities are patent and compressible segmentally. There is no evidence of bilateral lower extremity deep vein thrombosis. The bilateral great saphenous veins appear patent and compressible segmentally. Limited below knee bilateral due to edema and patient positioning Ordering Physician: Maxx Humphreys Performed By: Dominick Valentine RVBisi Physical Exam Narrative General: Alert, oriented x 3, cooperative, No apparent distress HEENT: Atraumatic, PERRLA, EOMI, Normocephalic Oral: Moist Mucosa, poor dentition Neck: Supple, No JVD Lungs: Diminished, Normal air movement, No rhonchi, No wheeze, No rales Cardiovascular: Regular rate, Regular Rhythm, Normal S1, Normal S2, No murmurs Abdomen: Soft, Non Tender, Non-Distended, No Hepato-splenomegaly Extremities: No edema, Capillary Refill Less than 3 Seconds Skin: No rashes, No breakdown, chronic venous stasis changes Musculoskeletal: No Tenderness to Palpation of Joints or Extremities Neurological: No focal neurological deficit, Motor Exam 5/5 strength throughout, Sensory exam intact to light touch and pain Psych/Mental Status: Normal Affect, Appropriate Assessment & Plan Assessment/Plan (1) Acute UTI: (2) Metabolic encephalopathy: (3) Generalized weakness: (4) Pyelonephritis of left kidney: (5) Thrombocytopenia: PLAN: Plan 1. Metabolic encephalopathy secondary to UTI due to Klebsiella with generalized weakness ? Urine cultures from 10/24/2023 are finalized a Klebsiella, it is resistant to Keflex ? PT/OT for discharge planning ? Metabolic encephalopathy has resolved ? Will await pre-CERT 2. HTN/HLD/A-fib ? Blood pressure stable ? Can resume her home blood pressure medications, will monitor make adjustments as necessary ? We will hold her Lasix ? Continue with statin ? Continue with Coumadin and monitor INR 3. DM2 ? Hold her home medications ? Sliding scale insulin ? Accu-Cheks ACHS ? We will monitor make adjustments as necessary 4. Chronic thrombocytopenia ? Continue outpatient monitoring DVT: Coumadin Charges/Coding Visit Charges Inpatient E&M: 91655 Subs Hosp L2
[2023-10-27] MEDS: Zinc Sulfate 50 mg zinc (220 mg) ORAL capsule PO (11:12)
[2023-10-27] MEDS: Cholecalciferol (Vit D3) 125 MCG CAPSULE (5,000 UNITS) PO (11:12)
[2023-10-27 11:13] VITALS: PULSE 68
[2023-10-27] MEDS: Ceftriaxone 1 GM/50 ML BAG IV (11:13)
[2023-10-27] MEDS: Metoprolol Tartrate 25 MG Tablet PO (11:13)
--- NOTE | 2023-10-27 11:15 | CASEMGMT ---
Social Work Pt accepted at [facility], they were advised to start precert. SW let pt know, pt agreeable to [facility], and agreeable to have SW call son. SW called son Casey, let him know pt was accepted at [facility] and they are starting precert, will let him know if precert is attained and pt is getting discharged. SW did let both son and pt know that there is a chance pt may be here through the weekend waiting for precert. MECHELLE Hood
[2023-10-27 11:18] LABS: Bedside Glucose 204 mg/dL (74-106)
--- NOTE | 2023-10-27 13:40 | CASEMGMT ---
Social Work SW completed PAS/RR. PAS/RR w/results will be placed on the chart with a green sheet and transport form if precert is not attained by the end of the day. MECHELLE Hood
--- NOTE | 2023-10-27 14:08 | CASEMGMT ---
Discharge Planning [facility] has obtained auth. SW updated. Fiorella aCde, Discharge Planning Asst.
--- NOTE | 2023-10-27 14:29 | TREXTCAR_ITS ---
Diet Diet Order/Speech Therapy: 10/25/23 21:35 Diet: Full Liquid Food consistency:: N/A - Liquid only Liquid Consistency:: Regular/Thin Type of Dietary Supplement:: Glucerna Shake Diet Comments: 120mL Glucerna TID with meals Routine Orders/Code Status Routine Lab Work: CBC, BMP and INR Code Status: Full Code Wound(s) Right inner calf: Wound Type: Abrasion Dressing Change: dry dressing Therapies Physical Therapy: Eval and Treat Occupational Therapy: Eval and Treat Problem/Diagnosis (1) Acute UTI: Status: Acute Code(s): N39.0 - Urinary tract infection, site not specified (2) Metabolic encephalopathy: Status: Acute Code(s): G93.41 - Metabolic encephalopathy (3) Generalized weakness: Status: Acute Code(s): R53.1 - Weakness (4) Pyelonephritis of left kidney: Status: Acute Code(s): N12 - Tubulo-interstitial nephritis, not specified as acute or chronic (5) Thrombocytopenia: Status: Acute Code(s): D69.6 - Thrombocytopenia, unspecified Plan 1. Metabolic encephalopathy secondary to UTI due to Klebsiella with generalized weakness ? Urine cultures from 10/24/2023 are finalized a Klebsiella, it is resistant to Keflex ? PT/OT for discharge planning ? Metabolic encephalopathy has resolved ? Will await pre-CERT 2. HTN/HLD/A-fib ? Blood pressure stable ? Can resume her home blood pressure medications, will monitor make adjustments as necessary ? We will hold her Lasix ? Continue with statin ? Continue with Coumadin and monitor INR 3. DM2 ? Hold her home medications ? Sliding scale insulin ? Accu-Cheks ACHS ? We will monitor make adjustments as necessary 4. Chronic thrombocytopenia ? Continue outpatient monitoring DVT: Coumadin Allergies/Procedures Done in Hospital Allergies diltiazem HCl [From Cardizem] Allergy (Verified 10/24/23 19:38) Rash Type of Care/Length of Stay Estimated LOS: Convalescent Care Less Than 30 days Type of Care Needed: Skilled Rehab Potential: Good Prognosis: Good Additional Orders/Day of Discharge Day of Discharge: 10/27/23 Dietary and Speech Recommendations Dietitian Recommendations/Changes: ADAT to CCD when medically able to manage blood sugars. RD will order 120mL Glucerna TID with meals to provide supplemental energy. Discharge Plan Admission Admit Date/Time: 10/25/23 19:59 Attending Provider: Bill Yadav Primary Care Provider: James Zavaleta Consulting Providers: Maxx Humphreys Discharge Orders/Prescriptions Prescriptions: New cefdinir 300 mg capsule 300 mg PO BID 3 Days Qty: 6 0RF Rx Instructions: Start 10/28/2023 Continued furosemide 40 MG tablet 40 mg PO BID metformin 500 MG tablet 500 mg PO BIDCM glimepiride 2 MG tablet 2 mg PO DAILY metoprolol tartrate 25 mg tablet 25 mg PO DAILY potassium chloride [Klor-Con 10] 10 mEq tablet extended release 10 meq PO BID warfarin 3 mg tablet 9 mg PO DAILY atorvastatin 40 mg tablet 40 mg PO DAILY ondansetron 4 mg tablet,disintegrating 4 mg PO Q8H PRN (Reason: Nausea) Discontinued cephalexin [cephalexin] 500 mg capsule 500 mg PO TID 7 Days Qty: 21 0RF Referrals / Follow Up: James Zavaleta DO [Primary Care Provider] - Disposition Disposition (needs filled in before D/C Order can be placed): Senior Living Facility
[2023-10-27 14:55] LABS: Pathologist Review Reviewed
[2023-10-27 14:56] VITALS: BP 138/59; PULSE 75; RESP 16; TEMP 36.7; O2SAT 98
--- NOTE | 2023-10-27 15:01 | CASEMGMT ---
Social Work Precert was attained for pt to go to [facility] today. SW let pt know, she is agreeable to plan. AYSE completed PAS/RR, this w/results will be sent w/pt. AYSE sent all discharge instructions via Careport to [facility]. AYSE set up a 5pm wheelchair van. AYSE let pt's RN, pt, and [facility] know the time of pickup. AYSE called pt's son Casey, let him know precert was attained and [facility]. AYSE explained set up a 5pm ambulette to take pt today, did let son know pt may get a bill for transport. Son states understanding. No further needs, pt to [facility] skilled this afternoon. MECHELLE Hood
[2023-10-27 15:03] LABS: Pathologist Review Reviewed
--- NOTE | 2023-10-27 15:53 | PCM.DC.SUM ---
Providers Date of Admission: 10/25/23 Primary Care Physician: Dr. James Zavaleta, Consultations 10/25/23 21:35 Consult: Onc/Wound/manager people Routine Comment: Reason for Consult:: Severe chronic venous stasis Reason For Visit: ACUTE CYSTITIS WITH CT EVIDENCE OF LEFT Diagnosis Discharge Diagnosis (1) Acute UTI: Status: Acute Code(s): N39.0 - Urinary tract infection, site not specified (2) Metabolic encephalopathy: Status: Acute Code(s): G93.41 - Metabolic encephalopathy (3) Generalized weakness: Status: Acute Code(s): R53.1 - Weakness (4) Pyelonephritis of left kidney: Status: Acute Code(s): N12 - Tubulo-interstitial nephritis, not specified as acute or chronic (5) Thrombocytopenia: Status: Acute Code(s): D69.6 - Thrombocytopenia, unspecified Medications at Discharge Home Medications furosemide 40 mg tablet 40 mg PO BID FLUID RETENTION 01/20/16 glimepiride 2 mg tablet 2 mg PO DAILY DIABETES 01/20/16 metformin 500 mg tablet 500 mg PO BIDCM DIABETES 01/20/16 atorvastatin 40 mg tablet 40 mg PO DAILY CHOLESTEROL 10/24/23 metoprolol tartrate 25 mg tablet 25 mg PO DAILY BLOOD PRESSURE 10/24/23 potassium chloride 10 mEq tablet,extended release (Klor-Con) 10 meq PO BID SUPPLEMENT 10/24/23 warfarin 3 mg tablet 9 mg PO DAILY BLOOD THINNER 10/24/23 ondansetron 4 mg disintegrating tablet 4 mg PO Q8H PRN Nausea 10/25/23 cefdinir 300 mg capsule 300 mg PO BID 3 days #6 caps 10/27/23 Hospital Course Operations None Procedures None Summary of Care Provided Minutes Spent on Discharge: 35 Hospital Course: Per HPI: DENIZ NAGY, is a 83 F with a past medical history of essential hypertension, hyperlipidemia, diabetes mellitus type 2; of unknown control, history of atrial fibrillation; on Coumadin, history of breast cancer; status post Right mastectomy, history of hysterectomy, chronic lower extremity edema with venous insufficiency and venous ulcer of the left lower extremity, osteoarthritis, history of renal calculi; requiring urologic intervention and recently diagnosed UTI on October 24, 2023 who presents to [facility] ER with family noting altered mental status. Ms. Nagy is not a fully-reliable historian at this time as information was gathered from chart, medical staff and computer. According to the records she was seen in the ER yesterday and treated with IV Rocephin after being diagnosed with acute cystitis. Her family was supposed to warehouse order picker her Keflex from the pharmacy but did not do so and called EMS instead due to her worsening altered mental status. Her family reported that she was attempting to ambulate with her walker when she urinated while walking across the floor with worsening confusion. There is no report of fever, chills, nausea, vomiting, diarrhea, constipation or significant abdominal pain but she did complain of some back pain earlier and she is obviously encephalopathic with patient communicating with her eyes closed and sometimes tangential responses to questions. In the ER her CT scan of the abdomen pelvis revealed left hydronephrosis with perinephric stranding consistent with suspected pyelonephritis of the Left kidney in the setting of recently diagnosed UTI with failed treatment with IV Rocephin complicated by clinical evidence of acute metabolic encephalopathy and generalized weakness with ambulatory dysfunction and she was then admitted to the general medical floor for ongoing care for stay that is expected to be greater than 48 hours. Hospital Course: 1. Metabolic encephalopathy secondary to a Klebsiella UTI with generalized weakness?83-year-old female presented to the ER initially on 10/24/2023 and was found to have a UTI. She was discharged on Keflex which she did not warehouse order picker at the pharmacy however presented back to the hospital secondary to weakness and altered mental status. At this point her urine cultures had resulted and she had a fairly sensitive Klebsiella that was resistant to her Keflex. She was transition to Rocephin and on the day of discharge her metabolic encephalopathy had completely resolved. I discussed with her the plan for discharge today she expressed understanding of the risk benefits of going to the shelter and like to go today. Will continue with 3 more days of cefdinir 300 mg p.o. twice daily and outpatient monitoring of note she has chronic thrombocytopenia which remains unchanged from baseline and she is currently on Coumadin for her A-fib and on the day of discharge her INR is 1.9. 2. Hypertension, hyperlipidemia, A-fib, type 2 diabetes, chronic thrombocytopenia are all chronic medical conditions which complicate her care. Her home medications were continued where appropriate Weight / BMI Weight Weight: 213 lb 10.047 oz Body Mass Index (BMI) 41.9 ABG / Lab / Microbiology Data 10/27/23 05:30 10/27/23 05:30 Laboratory: Laboratory Results - last 24 hr 10/26/23 07:00: Diff Path Review Reviewed 10/26/23 16:13: POC Glucose 192 H 10/26/23 20:32: POC Glucose 143 H 10/27/23 05:30: WBC 4.5, RBC 3.30 L, Hgb 9.8 L, Hct 30.5 L, MCV 92.4, MCH 29.7, MCHC 32.1, RDW Std Deviation 48.8 H, RDW Coeff of Maximino 14.4, Plt Count 45 L*, MPV 12.6 H, Immature Gran % (Auto) 0.400, Neut % (Auto) 76.2 H, Lymph % (Auto) 12.3 L, Williams % (Auto) 9.4, Eos % (Auto) 1.3, Baso % (Auto) 0.4, Absolute Neuts (auto) 3.4, Absolute Lymphs (auto) 0.55 L, Nucleated RBC % 0, Differential Comment SCANNED, Diff Path Review Reviewed, PT 21.5 H, INR 1.9, Sodium 142, Potassium 3.4 L, Chloride 114 H, Carbon Dioxide 23.0, Anion Gap 5, BUN 23 H, Creatinine 1.03 H, Estim Creat Clear Calc 43.16, Est GFR (MDRD) Af Amer 66, Est GFR (MDRD) Non-Af 54 L, BUN/Creatinine Ratio 22.3 H, Glucose 183 H, Calcium 8.8 10/27/23 06:27: POC Glucose 160 H 10/27/23 10:57: POC Glucose 204 H Microbiology: Microbiology 10/26/23 14:24 Stool Enteric Bacteriology - Final 10/26/23 14:24 Stool Clostridioides difficile (PCR) - Final Radiography Diagnostic Testing: Radiology Impression Venous Doppler Study 10/25/23 20:28 Interpretation Summary Deep veins of the bilateral lower extremities are patent and compressible segmentally. There is no evidence of bilateral lower extremity deep vein thrombosis. The bilateral great saphenous veins appear patent and compressible segmentally. Limited below knee bilateral due to edema and patient positioning Ordering Physician: Maxx Humphreys Performed By: Dominick Valentine RVT Meaningful Use Info Meaningful Use Diagnoses (Choose all that apply): None applicable Discharge Plan Admission Admit Date/Time: 10/25/23 19:59 Attending Provider: Bill Yadav Primary Care Provider: James Zavaleta Consulting Providers: Maxx Humphreys Discharge Orders/Prescriptions Prescriptions: New cefdinir 300 mg capsule 300 mg PO BID 3 Days Qty: 6 0RF Rx Instructions: Start 10/28/2023 Continued furosemide 40 MG tablet 40 mg PO BID metformin 500 MG tablet 500 mg PO BIDCM glimepiride 2 MG tablet 2 mg PO DAILY metoprolol tartrate 25 mg tablet 25 mg PO DAILY potassium chloride [Klor-Con 10] 10 mEq tablet extended release 10 meq PO BID warfarin 3 mg tablet 9 mg PO DAILY atorvastatin 40 mg tablet 40 mg PO DAILY ondansetron 4 mg tablet,disintegrating 4 mg PO Q8H PRN (Reason: Nausea) Discontinued cephalexin [cephalexin] 500 mg capsule 500 mg PO TID 7 Days Qty: 21 0RF Referrals / Follow Up: James Zavaleta DO [Primary Care Provider] - Disposition Disposition (needs filled in before D/C Order can be placed): [facility] Charges/Coding Visit Charges Inpatient E&M: 42934 Disch Hosp >30min
[2023-10-27 16:49] LABS: Bedside Glucose 183 mg/dL (74-106)
[2023-10-27 20:00] VITALS: BP 117/66; PULSE 78; RESP 16; TEMP 36.4; O2SAT 98
[2023-10-27] MEDS: Atorvastatin Calcium 40 MG Tablet PO (23:50)
[2023-10-28 00:17] LABS: Bedside Glucose 187 mg/dL (74-106)
[2023-10-28 03:30] VITALS: BP 113/64; PULSE 80; RESP 16; TEMP 36.6; O2SAT 97
[2023-10-28 05:57] VITALS: BMI 42.4
[2023-10-28 06:09] LABS: Absolute Lymphocyte Count 0.81 X10^3/uL (0.83-4.51); Absolute Neutrophil Count 3.5 X10^3/uL (2.0-7.7); Basophil# 0.01 X10^3/uL; Basophil% 0.2 % (0-1); Eosinophil# 0.15 X10^3/uL; Hematocrit 31.5 % (37-47); Hemoglobin 10.4 g/dL (12.0-15.0); Lymphocyte # 0.81 X10^3/ul (0.83-4.51); Lymphocyte % 15.9 % (19-41); Mean Corpuscular Hgb 30.1 pg (27.0-32.0); Mean Corpuscular Volume 91.3 fL (81-99); Mean Platelet Vol. 12.6 fl (6.2-12.0); Monocyte# 0.58 X10^3/uL; Monocyte% 11.4 % (0-10); NRBC Flagged by Analyzer 0 % (0-5); Neutrophil # 3.51 X10^3/uL (2.7-7.7); Neutrophil % 69.1 % (47-70); POSITIVE COUNT YES; RBC Distribution Width SD 46.8 fl (35.1-43.9); Red Blood Count 3.45 M/mm3 (4.2-5.4); White Blood Count 5.1 K/mm3 (4.4-11.0)
[2023-10-28 06:16] LABS: Differential Indicated SCAN CRITERIA MET; Platelet Count 50 K/mm3 (150-450)
[2023-10-28 06:22] LABS: International Normalized Ratio 1.1; Prothrombin Time (Protime)PT. 14.6 SECONDS (11.7-14.9)
[2023-10-28 06:33] LABS: Anion Gap 7 (5-15); BUN 20 mg/dL (7-18); BUN/Creat Ratio 20.6 RATIO (10-20); Calcium,Total 8.7 mg/dL (8.5-10.1); Chloride 114 mmol/L (98-107); Creatinine, Serum 0.97 mg/dL (0.55-1.02); EST Glomerular Filtration Rate 58 mL/min (>60); Est Glom Filt Rate - Afr Amer 70 mL/min (>60); Estimated Creatinine Clearance 46.13 ml/min; Glucose 178 mg/dL (74-106); Potassium 3.8 mmol/L (3.5-5.1); Sodium Level 142 mmol/L (136-145)
[2023-10-28 06:41] LABS: Differential Comment SCANNED
[2023-10-28] MEDS: Acetaminophen 325 MG Tablet 650 MG PO (06:48)
[2023-10-28] MEDS: Menthol/Lanolin/Calamine/Znox 113 GM Tube 1 APPLIC TOPICAL (06:48)
[2023-10-28] MEDS: Miconazole Nitrate 43 GM Bottle 1 APPLIC TOPICAL (06:48)
[2023-10-30 14:25] LABS: Pathologist Review Reviewed
== END 2023-10-28 07:28 | DRG 689 ==
LOC: ED 18:02 → MS3 23:24
PROVIDERS: Admitting Provider Internal Medicine; Emergency Provider Student in an Organized Health Care Education/Training Program; PCP Family Medicine; Visit Provider Family Medicine
DX: N13.6 Pyonephrosis (principal); G93.41 Metabolic encephalopathy; D69.6 Thrombocytopenia, unspecified; E11.59 Type 2 diabetes mellitus with other circulatory complications; E78.5 Hyperlipidemia, unspecified; B96.1 Klebsiella pneumoniae [K. pneumoniae] as the cause of diseases classified elsewhere; I48.91 Unspecified atrial fibrillation; E86.0 Dehydration; I10 Essential (primary) hypertension; K80.20 Calculus of gallbladder without cholecystitis without obstruction; I87.2 Venous insufficiency (chronic) (peripheral); M19.90 Unspecified osteoarthritis, unspecified site; N12 Tubulo-interstitial nephritis, not specified as acute or chronic; Z79.01 Long term (current) use of anticoagulants; Z87.891 Personal history of nicotine dependence; Z85.3 Personal history of malignant neoplasm of breast; Z87.442 Personal history of urinary calculi
CPT/HCPCS: 36415; 70450; 71045; 74177; 76770; 80048; 80053; 80076; 81001; 82140; 82962; 83690; 83735; 84100; 84443; 85025; 85379; 85610; 87077; 87086; 87088; 87186; 87493; 87506; 87631; 93005; 93970; 96365; 97162; 97166; 97530; 97535; 99284; 99285; J7030; P9612; Q9967; A4216; J0744

== ENCOUNTER → 2023-11-16 | Outpatient (REF) | payer MEDICARE, SELFPAY ==
[2023-11-16 08:54] LABS: Hematocrit 32.9 % (37-47); Hemoglobin 10.3 g/dL (12.0-15.0); Mean Corp Hgb Conc 31.3 g/dL (32-36); Mean Corpuscular Hgb 29.1 pg (27.0-32.0); Mean Corpuscular Volume 92.9 fL (81-99); Mean Platelet Vol. 13.3 fl (6.2-12.0); POSITIVE COUNT YES; RBC Distribution Width CV 14.9 % (11.6-14.6); RBC Distribution Width SD 51.1 fl (35.1-43.9); Red Blood Count 3.54 M/mm3 (4.2-5.4); White Blood Count 5.8 K/mm3 (4.4-11.0)
[2023-11-16 09:09] LABS: Anion Gap 4 (5-15); BUN 19 mg/dL (7-18); BUN/Creat Ratio 22.3 RATIO (10-20); Calcium,Total 9.5 mg/dL (8.5-10.1); Chloride 107 mmol/L (98-107); Creatinine, Serum 0.85 mg/dL (0.55-1.02); EST Glomerular Filtration Rate 68 mL/min (>60); Est Glom Filt Rate - Afr Amer 82 mL/min (>60); Glucose 108 mg/dL (74-106); Magnesium 1.8 mg/dL (1.6-2.6); Sodium Level 141 mmol/L (136-145)
[2023-11-16 11:13] LABS: Scan Indicated on CBC? Y/N YES- FLAGS NOTED
== END ==
LOC: OLS.ACW100 05:00
PROVIDERS: PCP Family Medicine; Visit Provider Family Medicine
DX: G93.41 Metabolic encephalopathy (principal); N39.0 Urinary tract infection, site not specified; R13.10 Dysphagia, unspecified; R41.82 Altered mental status, unspecified; R53.1 Weakness
CPT/HCPCS: 36415; 80048; 83735; 85027

== ENCOUNTER → 2023-12-28 | Outpatient (REF) | payer MEDICARE, SELFPAY ==
[2023-12-28 10:17] LABS: Hemoglobin A1c 6.4 % (3.8-5.6)
[2023-12-28 10:29] LABS: AST(SGOT) 20 U/L (15-37); Alanine Aminotransfer ALT/SGPT 18 U/L (13-56); Albumin, Serum 3.1 g/dL (3.2-5.0); Alkaline Phosphatase 72 U/L (45-117); Anion Gap 8 (5-15); BUN 25 mg/dL (7-18); Bilirubin, Direct 0.15 mg/dL (0.00-0.30); Calcium,Total 9.6 mg/dL (8.5-10.1); Chloride 105 mmol/L (98-107); Creatinine, Serum 0.78 mg/dL (0.55-1.02); EST Glomerular Filtration Rate 75 mL/min (>60); Est Glom Filt Rate - Afr Amer 90 mL/min (>60); Globulin 3.8 g/dL (2.2-4.2); Glucose 136 mg/dL (74-106); Potassium 4.3 mmol/L (3.5-5.1); Protein, Total 6.9 g/dL (6.4-8.2); Sodium Level 138 mmol/L (136-145)
== END ==
LOC: OLS.ACW100 05:00
PROVIDERS: PCP Family Medicine; Visit Provider Family Medicine
DX: Z79.899 Other long term (current) drug therapy (principal); E11.9 Type 2 diabetes mellitus without complications
CPT/HCPCS: 36415; 80048; 80076; 83036

== ENCOUNTER → 2024-01-08 | Outpatient (REF) | payer MEDICARE, SELFPAY ==
[2024-01-08 11:11] LABS: Hemoglobin A1c 6.9 % (3.8-5.6)
== END ==
LOC: OLS.ACW100 05:00
PROVIDERS: PCP Family Medicine; Visit Provider Family Medicine
DX: G93.41 Metabolic encephalopathy (principal); N39.0 Urinary tract infection, site not specified; R53.1 Weakness; R41.82 Altered mental status, unspecified; E11.9 Type 2 diabetes mellitus without complications
CPT/HCPCS: 36415; 83036

== ENCOUNTER → 2024-02-05 | Outpatient (REF) | payer MEDICARE, SELFPAY ==
[2024-02-05 09:45] LABS: Cholesterol 112 mg/dL (200); High Density Lipoprotein 43 mg/dL; Triglycerides 89 mg/dL; Very Low Density Lipoprotein 18 mg/dL (5-40)
== END ==
LOC: OLS.ACW100 05:00
PROVIDERS: PCP Family Medicine; Visit Provider Family Medicine
DX: G93.41 Metabolic encephalopathy (principal); N39.0 Urinary tract infection, site not specified; Z74.1 Need for assistance with personal care; R13.10 Dysphagia, unspecified; R53.1 Weakness; R41.82 Altered mental status, unspecified
CPT/HCPCS: 36415; 80061

== ENCOUNTER → 2024-02-07 05:00 | Outpatient (REF) | payer MEDICARE, SELFPAY ==
[2024-02-07 08:03] LABS: Anion Gap 5 (5-15); BUN 15 mg/dL (7-18); BUN/Creat Ratio 19.7 RATIO (10-20); Calcium,Total 9.5 mg/dL (8.5-10.1); Chloride 108 mmol/L (98-107); Creatinine, Serum 0.76 mg/dL (0.55-1.02); EST Glomerular Filtration Rate 77 mL/min (>60); Est Glom Filt Rate - Afr Amer 93 mL/min (>60); Glucose 148 mg/dL (74-106); Potassium 3.9 mmol/L (3.5-5.1); Sodium Level 140 mmol/L (136-145)
== END ==
LOC: OLS.ACW100 05:00
PROVIDERS: PCP Family Medicine; Visit Provider Family Medicine
DX: G93.41 Metabolic encephalopathy (principal); N39.0 Urinary tract infection, site not specified; Z74.1 Need for assistance with personal care; R13.10 Dysphagia, unspecified; R53.1 Weakness; R41.82 Altered mental status, unspecified
CPT/HCPCS: 36415; 80048

== ENCOUNTER → 2024-02-09 05:00 | Outpatient (REF) | payer MEDICARE, SELFPAY ==
[2024-02-09 07:42] LABS: Hematocrit 33.3 % (37-47); Hemoglobin 10.6 g/dL (12.0-15.0); Mean Corp Hgb Conc 31.8 g/dL (32-36); Mean Corpuscular Hgb 29.7 pg (27.0-32.0); Mean Corpuscular Volume 93.3 fL (81-99); Mean Platelet Vol. 13.1 fl (6.2-12.0); POSITIVE COUNT YES; RBC Distribution Width CV 14.2 % (11.6-14.6); RBC Distribution Width SD 48.4 fl (35.1-43.9); Red Blood Count 3.57 M/mm3 (4.2-5.4); White Blood Count 5.9 K/mm3 (4.4-11.0)
[2024-02-09 07:57] LABS: CRP < 2.90 mg/L (0.0-3.0)
[2024-02-09 08:08] LABS: Scan Indicated on CBC? Y/N YES- FLAGS NOTED
[2024-02-09 08:10] LABS: Differential Comment SCANNED
== END ==
LOC: OLS.ACW100 05:00
PROVIDERS: PCP Family Medicine; Visit Provider Family Medicine
DX: G93.41 Metabolic encephalopathy (principal); N39.0 Urinary tract infection, site not specified; Z74.1 Need for assistance with personal care; R13.10 Dysphagia, unspecified; R53.1 Weakness; R41.82 Altered mental status, unspecified
CPT/HCPCS: 36415; 85027; 86140

== ENCOUNTER → 2024-03-25 05:00 | Outpatient (REF) | payer MEDICARE, SELFPAY ==
[2024-03-25 08:14] LABS: BNP,B-Type NATRIURETIC PEPTIDE 105.7 pg/mL (0-100)
[2024-03-25 08:31] LABS: Anion Gap 7 (5-15); BUN 16 mg/dL (7-18); BUN/Creat Ratio 19.3 RATIO (10-20); Calcium,Total 9.8 mg/dL (8.5-10.1); Chloride 105 mmol/L (98-107); Creatinine, Serum 0.83 mg/dL (0.55-1.02); EST Glomerular Filtration Rate 70 mL/min (>60); Est Glom Filt Rate - Afr Amer 85 mL/min (>60); Glucose 141 mg/dL (74-106); Potassium 4.6 mmol/L (3.5-5.1); Sodium Level 137 mmol/L (136-145)
== END ==
LOC: OLS.ACW100 05:00
PROVIDERS: PCP Family Medicine; Visit Provider Family Medicine
DX: N39.0 Urinary tract infection, site not specified (principal); R65.20 Severe sepsis without septic shock; R78.81 Bacteremia; S81.801D Unspecified open wound, right lower leg, subsequent encounter; B95.62 Methicillin resistant Staphylococcus aureus infection as the cause of diseases classified elsewhere
CPT/HCPCS: 36415; 80048; 83880

== ENCOUNTER → 2024-03-26 05:00 | Outpatient (REF) | payer MEDICARE, SELFPAY | LOC: OLS.ACW100 05:00 | PROVIDERS: PCP Family Medicine; Visit Provider Family Medicine | DX: G93.41 Metabolic encephalopathy (principal); N39.0 Urinary tract infection, site not specified; Z74.1 Need for assistance with personal care; R13.10 Dysphagia, unspecified; R53.1 Weakness; R41.82 Altered mental status, unspecified | CPT/HCPCS: 36415; 87040 ==

== ENCOUNTER → 2024-04-08 05:00 | Outpatient (REF) | payer MEDICARE, SELFPAY ==
[2024-04-08 08:17] LABS: Anion Gap 5 (5-15); BUN 22 mg/dL (7-18); Calcium,Total 9.1 mg/dL (8.5-10.1); Chloride 107 mmol/L (98-107); Creatinine, Serum 0.78 mg/dL (0.55-1.02); EST Glomerular Filtration Rate 74 mL/min (>60); Est Glom Filt Rate - Afr Amer 90 mL/min (>60); Glucose 117 mg/dL (74-106); Potassium 4.2 mmol/L (3.5-5.1); Sodium Level 137 mmol/L (136-145)
[2024-04-08 08:35] LABS: Hematocrit 35.6 % (37-47); Mean Corp Hgb Conc 30.9 g/dL (32-36); Mean Corpuscular Hgb 29.1 pg (27.0-32.0); Mean Corpuscular Volume 94.2 fL (81-99); POSITIVE COUNT YES; RBC Distribution Width CV 14.6 % (11.6-14.6); RBC Distribution Width SD 50.3 fl (35.1-43.9); Red Blood Count 3.78 M/mm3 (4.2-5.4); White Blood Count 6.4 K/mm3 (4.4-11.0)
[2024-04-08 09:19] LABS: Scan Indicated on CBC? Y/N YES- FLAGS NOTED
[2024-04-08 09:33] LABS: BNP,B-Type NATRIURETIC PEPTIDE 103.7 pg/mL (0-100)
== END ==
LOC: OLS.ACW100 05:00
PROVIDERS: PCP Family Medicine; Visit Provider Family Medicine
DX: N39.0 Urinary tract infection, site not specified (principal); R65.20 Severe sepsis without septic shock; R78.81 Bacteremia; S81.801D Unspecified open wound, right lower leg, subsequent encounter; B95.62 Methicillin resistant Staphylococcus aureus infection as the cause of diseases classified elsewhere
CPT/HCPCS: 36415; 80048; 83880; 85027

== ENCOUNTER → 2024-05-08 | Outpatient (REF) | payer MEDICARE, MEDICAID, SELFPAY ==
[2024-05-08 08:15] LABS: Hematocrit 33.7 % (37-47); Hemoglobin 10.6 g/dL (12.0-15.0); Mean Corp Hgb Conc 31.5 g/dL (32-36); Mean Corpuscular Hgb 28.9 pg (27.0-32.0); Mean Corpuscular Volume 91.8 fL (81-99); Platelet Count 100 K/mm3 (150-450); RBC Distribution Width CV 14.1 % (11.6-14.6); RBC Distribution Width SD 47.5 fl (35.1-43.9); Red Blood Count 3.67 M/mm3 (4.2-5.4); White Blood Count 5.6 K/mm3 (4.4-11.0)
[2024-05-08 08:27] LABS: BNP,B-Type NATRIURETIC PEPTIDE 119.4 pg/mL (0-100)
[2024-05-08 08:31] LABS: Anion Gap 4 (5-15); BUN 22 mg/dL (7-18); BUN/Creat Ratio 27.4 RATIO (10-20); Chloride 108 mmol/L (98-107); EST Glomerular Filtration Rate 72 mL/min (>60); Est Glom Filt Rate - Afr Amer 88 mL/min (>60); Glucose 119 mg/dL (74-106); Potassium 4.2 mmol/L (3.5-5.1); Sodium Level 139 mmol/L (136-145)
== END ==
LOC: OLS.ACW100 05:00
PROVIDERS: PCP Family Medicine; Visit Provider Family Medicine
DX: N39.0 Urinary tract infection, site not specified (principal); R65.20 Severe sepsis without septic shock; R53.83 Other fatigue; R78.81 Bacteremia
CPT/HCPCS: 36415; 80048; 83880; 85027

== ENCOUNTER → 2024-05-09 | Outpatient (REF) | payer MEDICARE, MEDICAID, SELFPAY ==
[2024-05-09 09:18] LABS: Anion Gap 8 (5-15); BUN 22 mg/dL (7-18); BUN/Creat Ratio 25.5 RATIO (10-20); Calcium,Total 9.3 mg/dL (8.5-10.1); Chloride 109 mmol/L (98-107); Creatinine, Serum 0.86 mg/dL (0.55-1.02); EST Glomerular Filtration Rate 67 mL/min (>60); Est Glom Filt Rate - Afr Amer 81 mL/min (>60); Glucose 126 mg/dL (74-106); Potassium 4.4 mmol/L (3.5-5.1); Sodium Level 140 mmol/L (136-145)
[2024-05-09 09:29] LABS: Hemoglobin A1c 6.7 % (3.8-5.6)
== END ==
LOC: OLS.ACW100 05:00
PROVIDERS: PCP Family Medicine; Visit Provider Family Medicine
DX: G93.41 Metabolic encephalopathy (principal); N39.0 Urinary tract infection, site not specified; R53.1 Weakness; R41.82 Altered mental status, unspecified; E11.9 Type 2 diabetes mellitus without complications
CPT/HCPCS: 36415; 80048; 83036

== ENCOUNTER → 2024-05-20 | Outpatient (REF) | payer MEDICARE, MEDICAID, SELFPAY ==
[2024-05-20 10:03] LABS: Anion Gap 7 (5-15); BUN 26 mg/dL (7-18); Calcium,Total 9.4 mg/dL (8.5-10.1); Chloride 105 mmol/L (98-107); Creatinine, Serum 0.84 mg/dL (0.55-1.02); EST Glomerular Filtration Rate 69 mL/min (>60); Est Glom Filt Rate - Afr Amer 83 mL/min (>60); Glucose 122 mg/dL (74-106); Potassium 4.2 mmol/L (3.5-5.1); Sodium Level 137 mmol/L (136-145)
== END ==
LOC: OLS.ACW100 05:00
PROVIDERS: PCP Family Medicine; Visit Provider Family Medicine
DX: N39.0 Urinary tract infection, site not specified (principal); R65.20 Severe sepsis without septic shock; R53.81 Other malaise; R53.83 Other fatigue
CPT/HCPCS: 36415; 80048

== ENCOUNTER → 2024-07-12 | Outpatient (REF) | payer MEDICARE, MEDICAID, SELFPAY | LOC: OLS.ACW100 18:50 | PROVIDERS: PCP Family Medicine; Visit Provider Family Medicine | DX: N39.0 Urinary tract infection, site not specified (principal); R65.20 Severe sepsis without septic shock; R53.83 Other fatigue; R53.81 Other malaise; R78.81 Bacteremia; S81.801D Unspecified open wound, right lower leg, subsequent encounter | CPT/HCPCS: 87493 ==

== ENCOUNTER → 2024-08-09 | Outpatient (REF) | payer MEDICARE, MEDICAID, SELFPAY ==
[2024-08-09 08:46] LABS: Anion Gap 4 (5-15); BUN 20 mg/dL (7-18); BUN/Creat Ratio 25.6 RATIO (10-20); Chloride 110 mmol/L (98-107); Creatinine, Serum 0.78 mg/dL (0.55-1.02); EST Glomerular Filtration Rate 75 mL/min (>60); Est Glom Filt Rate - Afr Amer 90 mL/min (>60); Glucose 114 mg/dL (74-106); Potassium 4.3 mmol/L (3.5-5.1); Sodium Level 140 mmol/L (136-145)
== END ==
LOC: OLS.ACW100 05:00
PROVIDERS: PCP Family Medicine; Visit Provider Family Medicine
DX: G93.41 Metabolic encephalopathy (principal); N39.0 Urinary tract infection, site not specified; R53.1 Weakness; R13.10 Dysphagia, unspecified; R41.82 Altered mental status, unspecified; E11.9 Type 2 diabetes mellitus without complications
CPT/HCPCS: 36415; 80048; 83036

== ENCOUNTER → 2024-10-15 05:00 | Outpatient (REF) | payer MEDICARE, MEDICAID, SELFPAY ==
[2024-10-15 09:40] LABS: Anion Gap 4 (5-15); BUN 18 mg/dL (7-18); BUN/Creat Ratio 21.3 RATIO (10-20); Calcium,Total 9.4 mg/dL (8.5-10.1); Chloride 108 mmol/L (98-107); Creatinine, Serum 0.84 mg/dL (0.55-1.02); EST Glomerular Filtration Rate 68 mL/min (>60); Est Glom Filt Rate - Afr Amer 83 mL/min (>60); Glucose 107 mg/dL (74-106); Potassium 4.4 mmol/L (3.5-5.1); Sodium Level 138 mmol/L (136-145)
[2024-10-15 09:42] LABS: BNP,B-Type NATRIURETIC PEPTIDE 133.1 pg/mL (0-100)
== END ==
LOC: OLS.ACW200 05:00
PROVIDERS: PCP Family Medicine; Visit Provider Family Medicine
DX: N39.0 Urinary tract infection, site not specified (principal); R65.20 Severe sepsis without septic shock; R53.81 Other malaise; R78.81 Bacteremia; S81.801D Unspecified open wound, right lower leg, subsequent encounter
CPT/HCPCS: 36415; 80048; 83880

== ENCOUNTER → 2024-10-22 05:00 | Outpatient (REF) | payer MEDICARE, MEDICAID, SELFPAY ==
[2024-10-22 08:34] LABS: Anion Gap 5 (5-15); BUN 23 mg/dL (7-18); BUN/Creat Ratio 24.4 RATIO (10-20); Calcium,Total 9.8 mg/dL (8.5-10.1); Chloride 108 mmol/L (98-107); Creatinine, Serum 0.94 mg/dL (0.55-1.02); EST Glomerular Filtration Rate 60 mL/min (>60); Est Glom Filt Rate - Afr Amer 73 mL/min (>60); Glucose 101 mg/dL (74-106); Potassium 4.5 mmol/L (3.5-5.1); Sodium Level 139 mmol/L (136-145)
== END ==
LOC: OLS.ACW200 05:00
PROVIDERS: PCP Family Medicine; Visit Provider Family Medicine
DX: N39.0 Urinary tract infection, site not specified (principal); R53.83 Other fatigue; R53.81 Other malaise
CPT/HCPCS: 36415; 80048

== ENCOUNTER → 2024-12-31 | Outpatient (REF) | payer MEDICARE, MEDICAID, SELFPAY ==
[2024-12-31 10:15] LABS: Absolute Lymphocyte Count 2.09 X10^3/uL (0.83-4.51); Absolute Neutrophil Count 3.9 X10^3/uL (2.0-7.7); Basophil# 0.03 X10^3/uL; Basophil% 0.5 % (0-1); Eosinophil# 0.12 X10^3/uL; Eosinophils% 1.8 % (0-5); Hematocrit 40.1 % (37-47); Hemoglobin 13.2 g/dL (12.0-15.0); Lymphocyte # 2.09 X10^3/ul (0.83-4.51); Lymphocyte % 31.6 % (19-41); Mean Corp Hgb Conc 32.9 g/dL (32-36); Mean Corpuscular Hgb 31.1 pg (27.0-32.0); Mean Corpuscular Volume 94.6 fL (81-99); Mean Platelet Vol. 13.3 fl (6.2-12.0); Monocyte# 0.45 X10^3/uL; Monocyte% 6.8 % (0-10); NRBC Flagged by Analyzer 0 % (0-5); POSITIVE COUNT YES; RBC Distribution Width CV 13.9 % (11.6-14.6); RBC Distribution Width SD 48.3 fl (35.1-43.9); Red Blood Count 4.24 M/mm3 (4.2-5.4); White Blood Count 6.6 K/mm3 (4.4-11.0)
[2024-12-31 10:49] LABS: Differential Indicated SCAN CRITERIA MET
[2024-12-31 10:50] LABS: Differential Comment SCANNED; Platelet Estimate MOD DEC (ADEQ)
[2024-12-31 12:07] LABS: AST(SGOT) 18 U/L (<=31); Alanine Aminotransfer ALT/SGPT 14 U/L (<=34); Albumin, Serum 4.2 g/dL (3.4-4.8); Alkaline Phosphatase 71 U/L (35-104); Anion Gap 13 (5-15); BUN 21 mg/dL (4-19); BUN/Creat Ratio 25.5 RATIO (10-20); Bilirubin, Direct 0.29 mg/dL (0.00-0.30); Calcium,Total 10.1 mg/dL (7.6-11.0); Carbon Dioxide 22.2 mmol/L (21.0-32.0); Chloride 104 mmol/L (98-108); Creatinine, Serum 0.82 mg/dL (0.70-1.20); EST Glomerular Filtration Rate 70 (>60); Globulin 2.8 g/dL (2.2-4.2); Glucose 132 mg/dL (70-99); Potassium 4.5 mmol/L (3.3-5.1); Sodium Level 139 mmol/L (133-145); Total Bilirubin 0.68 mg/dL (0.00-1.30); Vitamin B12 196 pg/mL (180-914); Vitamin D,25 Hydroxy 29.9 ng/mL (30-100)
== END ==
LOC: OLS.ACW100 04:00
PROVIDERS: PCP Family Medicine; Referring Provider Family Medicine; Visit Provider Family Medicine
DX: E11.40 Type 2 diabetes mellitus with diabetic neuropathy, unspecified (principal)
CPT/HCPCS: 36415; 80048; 80076; 82306; 82607; 82746; 84443; 85025

== ENCOUNTER → 2025-01-14 | Outpatient (REF) | payer MEDICARE, MEDICAID, SELFPAY ==
[2025-01-14 09:04] LABS: Erythrocyte Sedimentation Rate 14 mm/hr (0-30)
[2025-01-14 09:36] LABS: Vitamin B12 165 pg/mL (180-914)
[2025-01-14 09:37] LABS: CRP < 3.00 mg/L (0.0-3.0)
== END ==
LOC: OLS.ACW100 04:00
PROVIDERS: PCP Family Medicine; Referring Provider Family Medicine; Visit Provider Family Medicine
DX: N39.0 Urinary tract infection, site not specified (principal); R65.20 Severe sepsis without septic shock; R53.83 Other fatigue; R78.81 Bacteremia; R53.81 Other malaise
CPT/HCPCS: 36415; 82607; 85652; 86140

== ENCOUNTER → 2025-02-06 | Outpatient (REF) | payer MEDICARE, SELFPAY ==
[2025-02-06 09:04] LABS: Hemoglobin A1c 6.8 % (<=5.6)
[2025-02-06 09:07] LABS: ALB/GLOB Ratio 1.5 RATIO (0.9-2.4); AST(SGOT) 16 U/L (<=31); Alanine Aminotransfer ALT/SGPT 15 U/L (<=34); Albumin, Serum 3.5 g/dL (3.4-4.8); Alkaline Phosphatase 70 U/L (35-104); Anion Gap 10 (5-15); BUN 20 mg/dL (4-19); BUN/Creat Ratio 24.6 RATIO (10-20); Calcium,Total 9.4 mg/dL (7.6-11.0); Carbon Dioxide 21.7 mmol/L (21.0-32.0); Chloride 108 mmol/L (98-108); Cholesterol 112 mg/dL (<=200); EST Glomerular Filtration Rate 73 (>60); Globulin 2.4 g/dL (2.2-4.2); Glucose 114 mg/dL (70-99); High Density Lipoprotein 44 mg/dL; Low Density Lipoprotein Calc. 56 mg/dL; Potassium 4.1 mmol/L (3.3-5.1); Sodium Level 140 mmol/L (133-145); Total Bilirubin 0.38 mg/dL (0.00-1.30); Triglycerides 64 mg/dL; Very Low Density Lipoprotein 13 mg/dL (5-40); cholesterol:hdl ratio screen 2.57
== END ==
LOC: OLS.ACW200 05:00
PROVIDERS: PCP Family Medicine; Visit Provider Family Medicine
DX: G93.41 Metabolic encephalopathy (principal); R13.10 Dysphagia, unspecified; R53.1 Weakness; R41.82 Altered mental status, unspecified; N39.0 Urinary tract infection, site not specified; R65.20 Severe sepsis without septic shock; R78.81 Bacteremia; E11.9 Type 2 diabetes mellitus without complications
CPT/HCPCS: 36415; 80053; 80061; 83036

== ENCOUNTER → 2025-02-07 | Outpatient (REF) | payer MEDICARE, MEDICAID, SELFPAY ==
[2025-02-07 08:25] LABS: Hematocrit 35.4 % (37-47); Hemoglobin 11.5 g/dL (12.0-15.0); Mean Corp Hgb Conc 32.5 g/dL (32-36); Mean Corpuscular Hgb 31.7 pg (27.0-32.0); Mean Corpuscular Volume 97.5 fL (81-99); Mean Platelet Vol. 12.3 fl (6.2-12.0); POSITIVE COUNT YES; Platelet Count 102 K/mm3 (150-450); RBC Distribution Width CV 14.3 % (11.6-14.6); Red Blood Count 3.63 M/mm3 (4.2-5.4); White Blood Count 5.7 K/mm3 (4.4-11.0)
[2025-02-07 08:41] LABS: Anion Gap 11 (5-15); BUN 22 mg/dL (4-19); BUN/Creat Ratio 24.8 RATIO (10-20); Calcium,Total 9.3 mg/dL (7.6-11.0); Carbon Dioxide 19.8 mmol/L (21.0-32.0); Chloride 109 mmol/L (98-108); Creatinine, Serum 0.88 mg/dL (0.70-1.20); EST Glomerular Filtration Rate 64 (>60); Glucose 129 mg/dL (70-99); Potassium 4.3 mmol/L (3.3-5.1); Sodium Level 140 mmol/L (133-145); Troponin T High Sensitivity 22 ng/L (<=14)
[2025-02-07 08:52] LABS: Scan Indicated on CBC? Y/N YES- FLAGS NOTED
[2025-02-07 08:53] LABS: Differential Comment SCANNED
== END ==
LOC: OLS.ACW200 05:00
PROVIDERS: PCP Family Medicine; Visit Provider Family Medicine
DX: N39.0 Urinary tract infection, site not specified (principal); R65.20 Severe sepsis without septic shock; R53.83 Other fatigue; R53.81 Other malaise; R78.81 Bacteremia
CPT/HCPCS: 36415; 80048; 84484; 85027

== ENCOUNTER → 2025-02-10 | Outpatient (REF) | payer MEDICARE, MEDICAID, SELFPAY ==
[2025-02-10 10:01] LABS: Hematocrit 36.9 % (37-47); Hemoglobin 11.9 g/dL (12.0-15.0); Mean Corp Hgb Conc 32.2 g/dL (32-36); Mean Corpuscular Hgb 31.2 pg (27.0-32.0); Mean Corpuscular Volume 96.9 fL (81-99); Mean Platelet Vol. 12.5 fl (6.2-12.0); POSITIVE COUNT YES; RBC Distribution Width CV 14.1 % (11.6-14.6); RBC Distribution Width SD 50.5 fl (35.1-43.9); Red Blood Count 3.81 M/mm3 (4.2-5.4); White Blood Count 5.8 K/mm3 (4.4-11.0)
[2025-02-10 10:16] LABS: Anion Gap 12 (5-15); BUN 22 mg/dL (4-19); BUN/Creat Ratio 26.1 RATIO (10-20); Calcium,Total 9.6 mg/dL (7.6-11.0); Carbon Dioxide 20.1 mmol/L (21.0-32.0); Chloride 107 mmol/L (98-108); Creatinine, Serum 0.83 mg/dL (0.70-1.20); EST Glomerular Filtration Rate 69 (>60); Glucose 111 mg/dL (70-99); Potassium 4.3 mmol/L (3.3-5.1); Sodium Level 138 mmol/L (133-145); Troponin T High Sensitivity 20 ng/L (<=14)
[2025-02-10 11:48] LABS: Scan Indicated on CBC? Y/N YES- FLAGS NOTED
[2025-02-10 11:50] LABS: Differential Comment SCANNED
== END ==
LOC: OLS.ACW100 04:00
PROVIDERS: PCP Family Medicine; Referring Provider Family Medicine; Visit Provider Family Medicine
DX: N39.0 Urinary tract infection, site not specified (principal); R65.20 Severe sepsis without septic shock; R53.83 Other fatigue; R78.81 Bacteremia
CPT/HCPCS: 36415; 80048; 84484; 85027

== ENCOUNTER → 2025-02-11 | Outpatient (REF) | payer MEDICARE, SELFPAY ==
[2025-02-11 08:54] LABS: Hematocrit 37.5 % (37-47); Hemoglobin 12.3 g/dL (12.0-15.0); Mean Corp Hgb Conc 32.8 g/dL (32-36); Mean Corpuscular Hgb 31.5 pg (27.0-32.0); Mean Corpuscular Volume 96.2 fL (81-99); Mean Platelet Vol. 13.5 fl (6.2-12.0); POSITIVE COUNT YES; RBC Distribution Width CV 14.2 % (11.6-14.6); RBC Distribution Width SD 49.8 fl (35.1-43.9); White Blood Count 6.7 K/mm3 (4.4-11.0)
[2025-02-11 09:17] LABS: Anion Gap 11 (5-15); BUN 21 mg/dL (4-19); Calcium,Total 9.5 mg/dL (7.6-11.0); Carbon Dioxide 20.7 mmol/L (21.0-32.0); Chloride 107 mmol/L (98-108); Creatinine, Serum 0.82 mg/dL (0.70-1.20); EST Glomerular Filtration Rate 70 (>60); Glucose 116 mg/dL (70-99); Potassium 4.3 mmol/L (3.3-5.1); Sodium Level 139 mmol/L (133-145); Troponin T High Sensitivity 20 ng/L (<=14)
[2025-02-11 09:42] LABS: Scan Indicated on CBC? Y/N YES- FLAGS NOTED
== END ==
LOC: OLS.ACW200 05:00
PROVIDERS: PCP Family Medicine; Visit Provider Family Medicine
DX: N39.0 Urinary tract infection, site not specified (principal); R65.20 Severe sepsis without septic shock; R53.83 Other fatigue; R78.81 Bacteremia
CPT/HCPCS: 36415; 80048; 84484; 85027